=== PATIENT | male | born 1960 | race African-American/Black ===

== ENCOUNTER 2016-11-16 09:41 | Emergency (ER) | payer OTHER ==
[2016-11-16 09:54] VITALS: RESP 18
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
--- NOTE | 2016-11-16 11:05 | XR ---
Left shoulder HISTORY: Left shoulder pain 3 views of the left shoulder correlated to left shoulder dated 09 May 2016 Postop change noted to the humeral head. Some distortion is compatible with history of fracture. Calc ification is present at the level between the humeral head and acromion, hypertrophic change is suspe cted, there may be heterotopic new bone formation. Arthropathy present at the acromioclavicular joint . Left lung apex as visualized is normal. IMPRESSION: Postop changes. Correlate for impingement. Additional findings above.
[2016-11-16 11:26] VITALS: BP 142/79; PULSE 87; TEMP 97.9
== END 2016-11-16 11:26 | disposition home or self-care (01) ==
LOC: EC 09:41
DX: M25.512 Pain in left shoulder (principal); Z98.890 Other specified postprocedural states; F17.210 Nicotine dependence, cigarettes, uncomplicated; Z87.81 Personal history of (healed) traumatic fracture
CPT/HCPCS: 99283

== ENCOUNTER 2016-11-27 12:16 | Emergency (ER) | payer OTHER ==
[2016-11-27 12:21] VITALS: BP 133/77; PULSE 94; RESP 17; TEMP 97.3
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
== END 2016-11-27 13:06 | disposition home or self-care (01) ==
LOC: EC 12:16
DX: M25.512 Pain in left shoulder (principal); F17.210 Nicotine dependence, cigarettes, uncomplicated; Z98.1 Arthrodesis status; Z98.890 Other specified postprocedural states; Z87.828 Personal history of other (healed) physical injury and trauma
CPT/HCPCS: 99283

== ENCOUNTER 2016-12-07 09:29 | Emergency (ER) | payer OTHER ==
[2016-12-07 09:40] VITALS: BP 124/79; PULSE 90; RESP 18; TEMP 97.6
--- NOTE | 2016-12-07 09:51 | ED ---
Upper Extremity HPI - General Chief Complaint: Extremity Injury, Upper Stated Complaint: Shoulder pain Time Seen by Provider: 12/07/16 09:38 Source: patient, RN notes reviewed Mode of arrival: ambulatory Limitations: physical limitation - History of Present Illness Initial Comments: 56-year-old male presents emergency Department chief complaint chronic shoulder pain. Patient has been seen multiple times for this. Patient has received 2 prescriptions pain medication here in emergency department. Patient denies any new injuries. Patient states he missed his appointment last week because he did not have a ride. Patient states he has been appointment on 12/11/2016. Patient states that he is scheduled to going into be evaluated and given pain medication. Patient denies any paresthesias. This is from a previous surgical procedure for fracture to his left shoulder. - Related Data Home Medications Medication Instructions Recorded Confirmed HYDROcodone/APAP 10-325MG [[place] 1 tab PO Q6H PRN 11/27/16 11/27/16 10-325] Previous Rx's Medication Instructions Recorded Hydrocodone/Acetaminophen [Roll 1 tab PO Q6HR PRN #20 tab 11/27/16 5-325] Hydrocodone/Acetaminophen [Roll 1 tab PO Q6HR PRN #15 tab 12/07/16 5-325] Allergies Allergy/AdvReac Type Severity Reaction Status Date / Time No Known Allergies Allergy Verified 12/07/16 09:41 Review of Systems ROS Statement: Those systems with pertinent positive or pertinent negative responses have been documented in the HPI. ROS Other: All systems not noted in ROS Statement are negative. Past Medical History Past Medical History: Asthma, GERD/Reflux, Osteoarthritis (OA) Additional Past Medical History / Comment(s): occ high BP-no rx, fx left shouDER History of Any Multi-Drug Resistant Organisms: None Reported Past Surgical History: Back Surgery, Hernia Repair, Orthopedic Surgery Additional Past Surgical History / Comment(s): 05/22/16 ORIF L shoulder. Other surgical hx: BACK fusion & neck fusion, carpal tunnel-rt Past Anesthesia/Blood Transfusion Reactions: Motion Sickness Past Psychological History: No Psychological Hx Reported Additional Psychological History / Comment(s): Pt resides with family. He is independent. Smoking Status: Current every day smoker Past Alcohol Use History: Rare Additional Past Alcohol Use History / Comment(s): smokes 5-10 cigarettes daily for 20 yrs Past Drug Use History: None Reported Additional Drug Use History / Comment(s): . - Past Family History Sister(s) Family Medical History: Cancer, Deep Vein Thrombosis (DVT) General Exam Limitations: physical limitation General appearance: alert, in no apparent distress Neck exam: Present: normal inspection, full ROM. Absent: tenderness, meningismus, lymphadenopathy Respiratory exam: Present: normal lung sounds bilaterally. Absent: respiratory distress, wheezes, rales, rhonchi, stridor Cardiovascular Exam: Present: regular rate, normal rhythm, normal heart sounds. Absent: systolic murmur, diastolic murmur, rubs, gallop, clicks Extremities exam: Present: other (Left shoulder decreased range of motion there is) Course Vital Signs 12/07/16 09:35 Temperature 97.6 F Pulse Rate 90 Respiratory 18 Rate Blood Pressure 124/79 O2 Sat by Pulse 97 Oximetry Medical Decision Making - Medical Decision Making 56-year-old male presented for pain medication. I did maps patient's which showed her prescription and Zofran here. I had a long discussion with the patient that this is the last prescription that he would receive from the emergency room for his chronic shoulder pain secondary this is his third visit in a row for similar symptoms. He states he has an appointment on 12/11/2016 with the surgeon. I did explain and he agreed that I will give prescription now though he would not receive another one for his chronic shoulder pain that he can see her primary care physician or his surgeon for further pain medication. He does agree to this plan. Disposition Clinical Impression: Left shoulder pain Disposition: HOME SELF-CARE Condition: Stable Instructions: Chronic Pain (ED) Additional Instructions: Please follow-up with your surgeon as directed your scheduled appointment on Wednesday.Please return to the Emergency Department if symptoms worsen or any other concerns. Prescriptions: Hydrocodone/Acetaminophen [[place] 5-325] 1 tab PO Q6HR PRN #15 tab PRN Reason: Pain Referrals: None,Stated [Primary Care Provider] - 1-2 days Cassandra Blount MD [REFERRING] - 1-2 days Time of Disposition: 09:50
== END 2016-12-07 10:04 | disposition home or self-care (01) ==
LOC: EC 09:29
DX: M25.512 Pain in left shoulder (principal); G89.29 Other chronic pain; F17.210 Nicotine dependence, cigarettes, uncomplicated; Z98.890 Other specified postprocedural states
CPT/HCPCS: 99283

== ENCOUNTER 2017-01-20 04:06 | Emergency (ER) | payer OTHER ==
[2017-01-20] MEDS ORDERED: LIDOCAINE URO-JET JELLY 2% 5 ML KIT URETHRAL ONE (05:40)
[2017-01-20] MEDS ORDERED: LEVOFLOXACIN 750MG-D5W PMX 750 MG in DEXTROSE/WATER 1 150ML.BAG IVPB STA (06:04)
[2017-01-20 06:15] LABS: Appearance,Urine Cloudy (Clear); Bacteria,Urine Moderate /hpf; Bilirubin,Urine Negative (Negative); Glucose,Urine (UA) Negative (Negative); Ketones,Urine Trace (Negative); Leukocyte Esterase,Urine Large (Negative); Mucus,Urine Few /hpf; Nitrite,Urine Negative (Negative); Particle Count 22642; Protein,Urine 2+ (Negative); RBC,Urine >182 /hpf (0-5); Specific Gravity,Urine 1.019 (1.001-1.035); Squamous Epithelial Cell,Urine 2 /hpf (0-4); Transitional Epi Cells,Urine <1 /hpf (0-1); UA Billing (MACRO vs. MICRO) MICRO; WBC,Urine >182 /hpf (0-5)
[2017-01-20 06:41] LABS: ALT 41 U/L (21-72); AST 42 U/L (17-59); Alkaline Phosphatase 121 U/L (38-126); Anion Gap 13 mmol/L; Blood Urea Nitrogen 13 mg/dL (9-20); Calcium 9.4 mg/dL (8.4-10.2); Carbon Dioxide 21 mmol/L (22-30); Chloride 104 mmol/L (98-107); Glucose 111 mg/dL (74-99); Non-African American GFR(MDRD) >60 (>60 ml/min/1.73 sqM); Potassium 3.9 mmol/L (3.5-5.1); Sodium 138 mmol/L (137-145); Total Bilirubin 1.5 mg/dL (0.2-1.3); Total Protein 8.2 g/dL (6.3-8.2)
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
[2017-01-20 07:04] LABS: Basophils # (A) 0.1 k/uL (0-0.2); Basophils % (A) 0 %; CH 29.3; CHCM 33.7; Eosinophils # (A) 0.1 k/uL (0-0.7); Eosinophils % (A) 0 %; HCT 46.9 % (39.0-53.0); HDW 2.16; HGB 15.6 gm/dL (13.0-17.5); Luc # (Auto) 0.17; Luc % (Auto) 1; Lymphocytes # (A) 1.1 k/uL (1.0-4.8); Lymphocytes % (A) 5 %; MCHC 33.3 g/dL (31.0-37.0); MCV 87.3 fL (80.0-100.0); Monocytes # (A) 1.4 k/uL (0-1.0); Monocytes % (A) 6 %; Neutrophils # (A) 21.1 k/uL (1.3-7.7); Neutrophils % (A) 88 %; RBC 5.37 m/uL (4.30-5.90); RDW 13.2 % (11.5-15.5); WBC 23.9 k/uL (3.8-10.6); WBC (Perox) 22.77
[2017-01-20] MEDS ORDERED: AZITHROMYCIN 250 MG TAB PO STA (07:13)
[2017-01-20] MEDS ORDERED: HYDROcodone/APAP 5-325MG 1 EACH TAB PO STA (07:29)
--- NOTE | 2017-01-20 08:19 | CT ---
EXAMINATION TYPE: CT abdomen pelvis wo con DATE OF EXAM: 01/20/2017 7:47 AM COMPARISON: NONE INDICATION: Burning, difficult urination DLP: 1108 mGycm, Automated exposure control for dose reduction was used. CONTRAST: 0 mL of Omnipaque 300. Study performed without Oral Contrast TECHNIQUE: Axial images were obtained from above the diaphragm to the pubic rami in the axial plane a t 5 mm thick sections. Reconstructed images are reviewed on the computer in the coronal plane. FINDINGS: Limited CT sections are obtained the lung bases. The lung bases are clear. Couple Bohler within the right middle and right lower lobes within the [id number]. Left lower lobe bulla is also noted. Co ronary artery calcification is noted CT ABDOMEN: Liver: Moderate fatty infiltration is present throughout the liver. No discrete masses or cysts are e vident. Spleen: Normal Pancreas: Normal Adrenal glands: The adrenal glands are normal. Gallbladder: Normal Kidneys: No masses are evident. No hydronephrosis is present. No cysts are present. No renal stone s are identified. Aorta: Vascular calcification is within the aorta. Inferior vena cava: Normal. CT PELVIS: Loops of bowel within the abdomen and pelvis are normal. Lack oral contrast limiting evaluation. Appendix: Normal as visualized. Urinary bladder: Decompressed with limited evaluation. Genitourinary structures: Prostate is prominent. Osseous structures: No suspicious lytic or sclerotic lesions. Postsurgical changes are within the lum bar spine. IMPRESSIONS: 1. Moderate fatty infiltration liver. 2. No suspicious renal abnormality. Study is without contrast. 3. Nondistended urinary bladder limiting its evaluation.
[2017-01-20] MEDS ORDERED: MAGNESIUM CITRATE 296 ML BOTTLE PO ONE (08:31)
[2017-01-20] MEDS ORDERED: SODIUM CHLORIDE 0.9% 1,000 ML IV ONE (09:39)
[2017-01-20 10:53] VITALS: BP 128/75; PULSE 95; RESP 20; TEMP 97.8
== END 2017-01-20 10:51 | disposition home or self-care (01) ==
LOC: EC 04:06
DX: N39.0 Urinary tract infection, site not specified (principal); N41.9 Inflammatory disease of prostate, unspecified; F17.210 Nicotine dependence, cigarettes, uncomplicated; Z91.041 Radiographic dye allergy status
CPT/HCPCS: 99284; 96365; 96366 ×2; 96368; 96361; 51702; 36415; 80053; 83605; 85025; 81001; 87040; 87491; 87591; 87086; 74176; J0696; J1956; 87077; 87186

== ENCOUNTER 2017-01-26 10:08 | Emergency (ER) | payer OTHER ==
[2017-01-26 10:33] VITALS: BP 130/82; PULSE 98; RESP 18; TEMP 97.8
--- NOTE | 2017-01-26 10:47 | ED ---
General Adult HPI - General Chief complaint: Back Pain/Injury Stated complaint: Back Pain Time Seen by Provider: 01/26/17 10:39 Source: patient, RN notes reviewed Mode of arrival: ambulatory Limitations: no limitations - History of Present Illness Initial comments: Patient is a pleasant 57-year-old male presenting to the emergency Department with low back pain. Patient does have chronic low back pain. Patient states his low back pain has been worse recently and he is trying to get into see his surgeon again. Patient did have previous lumbar and cervical spine surgery. Patient states last night he was sitting in his chair and that bottom 2 screws gave out. Patient went back in the chair however did not completely fall to the ground. Patient has had some increase in discomfort again since that time. No leg weakness. Patient has chronic toe numbness however this is unchanged. Known comments or retention of bowel or bladder. - Related Data Previous Rx's Medication Instructions Recorded Levofloxacin [Levaquin] 750 mg PO DAILY #14 tab 01/20/17 Hydrocodone/Acetaminophen [[place] 1 each PO Q4HR PRN #15 tab 01/26/17 5-325] Allergies Allergy/AdvReac Type Severity Reaction Status Date / Time Iodinated Contrast Media - AdvReac Nausea Verified 01/26/17 10:50 Oral and Review of Systems ROS Statement: Those systems with pertinent positive or pertinent negative responses have been documented in the HPI. ROS Other: All systems not noted in ROS Statement are negative. Constitutional: Denies: fever Eyes: Denies: eye pain ENT: Denies: ear pain Respiratory: Denies: cough Cardiovascular: Denies: chest pain Endocrine: Denies: fatigue Gastrointestinal: Denies: abdominal pain Genitourinary: Denies: dysuria Musculoskeletal: Reports: back pain Skin: Denies: rash Neurological: Denies: weakness Past Medical History Past Medical History: Asthma, GERD/Reflux, Osteoarthritis (OA) Additional Past Medical History / Comment(s): occ high BP-no rx, fx left shouDER History of Any Multi-Drug Resistant Organisms: None Reported Past Surgical History: Back Surgery, Hernia Repair, Orthopedic Surgery Additional Past Surgical History / Comment(s): 05/22/16 ORIF L shoulder. Other surgical hx: BACK fusion & neck fusion, carpal tunnel-rt Past Anesthesia/Blood Transfusion Reactions: Motion Sickness Past Psychological History: No Psychological Hx Reported Additional Psychological History / Comment(s): Pt resides with family. He is independent. Smoking Status: Current every day smoker Past Alcohol Use History: Rare Additional Past Alcohol Use History / Comment(s): smokes 5-10 cigarettes daily for 20 yrs Past Drug Use History: None Reported Additional Drug Use History / Comment(s): . - Past Family History Sister(s) Family Medical History: Cancer, Deep Vein Thrombosis (DVT) General Exam Limitations: no limitations General appearance: alert, in no apparent distress Head exam: Present: atraumatic Eye exam: Present: normal appearance, PERRL ENT exam: Present: normal oropharynx Neck exam: Present: normal inspection Respiratory exam: Present: normal lung sounds bilaterally Cardiovascular Exam: Present: regular rate, normal rhythm GI/Abdominal exam: Present: soft. Absent: tenderness, pulsatile mass Extremities exam: Present: normal inspection Neurological exam: Present: alert. Absent: motor sensory deficit Expanded Sensory exam: Lower Extremity Light Touch: Normal Motor strength exam: RLE: 5, LLE: 5 Psychiatric exam: Present: normal affect, normal mood Skin exam: Present: normal color Course Vital Signs 01/26/17 10:28 Temperature 97.8 F Pulse Rate 98 Respiratory 18 Rate Blood Pressure 130/82 O2 Sat by Pulse 96 Oximetry Medical Decision Making - Medical Decision Making Patient requesting discharge and prescription for pain medication. Patient states he takes the 500s. Patient is advised to follow-up with a primary care physician. He states he will. - Radiology Data Radiology results: image reviewed (X-ray shows postsurgical changes, no acute abnormality.) Disposition Clinical Impression: Chronic lower back pain Disposition: HOME SELF-CARE Condition: Stable Instructions: Chronic Back Pain (ED) Additional Instructions: Please follow-up with primary care physician in the next day or 2 for recheck. Return for weakness, loss of control of bowel or bladder, change or worsening symptoms or other concerns. Prescriptions: Hydrocodone/Acetaminophen [[place] 5-325] 1 each PO Q4HR PRN #15 tab PRN Reason: Pain Referrals: None,Stated [Primary Care Provider] - 1-2 days Sena Green MD [STAFF PHYSICIAN] - 1-2 days Julio Mroris MD [REFERRING] - 1-2 days Mara Dumont DO [REFERRING] - 1-2 days Time of Disposition: 12:25
--- NOTE | 2017-01-26 11:46 | XR ---
Lumbar spine HISTORY: Pain. 3 views of the lumbar spine Correlation to prior exam 14 May 2014 Postop changes again noted. Degenerative disc changes are again seen. Lumbar vertebral bodies show st able height, alignment, bone mineralization is reduced. There is loss of disc height and intervertebr al levels. Resorption at the anterior margin of L3 is again seen. There is associated sclerosis. IMPRESSION: Stable findings. Degenerative disc disease. No acute abnormality.
== END 2017-01-26 12:36 | disposition home or self-care (01) ==
LOC: EC 10:08
DX: M54.5 Low back pain (principal); G89.29 Other chronic pain; F17.210 Nicotine dependence, cigarettes, uncomplicated; Z91.041 Radiographic dye allergy status
CPT/HCPCS: 72100; 99283

== ENCOUNTER 2017-03-16 09:27 | Emergency (ER) | payer OTHER ==
--- NOTE | 2017-03-16 10:47 | ED ---
Back Pain HPI - General Chief Complaint: Back Pain/Injury Stated Complaint: Shoulder and Back Pain Time Seen by Provider: 03/16/17 10:06 Source: patient Limitations: no limitations - History of Present Illness Initial Comments: Rene Pimentel is a 57-year-old -[place]ag[place] male with past medical history of chronic back pain secondary to injury. He presents to the emergency department this morning for evaluation of continued back pain. Patient reports that his chronic back pain as previously been controlled with by mouth [place], she has been on oxycodone and Suboxone in the past which he reports did not treat his pain adequately. He reports he came to our emergency Department approximately a month ago for evaluation of his back pain, he was referred to primary care neurologists however none of the specialists he was referred to accept his insurance. The patient states that he has called his insurance and they have been unable to provide him with a list of primary care providers who will accept his insurance therefore is been unable to obtain follow-up. Patient reports that for the past 15 days he was been without any by mouth narcotic pain medications. Patient reports that he was trying to manage his pain, he again called his insurance on Wednesday to see if he could locate a physician he can follow up with. However [facility] was not helpful to him so today he came to the emergency department because he says he cannot tolerate this constant pain and he needs referral to new primary care physician as well as neurologists. Patient describes his back pain as being primarily in his lower back with radiation down his right leg. The back pain is unchanged over the course of greater than one year. Due to chronic back pain he walks with a cane, this is unchanged recently. He denies any change in bowel or bladder habits, weakness in the legs, change in gait. Patient denies any other symptoms including fevers , chills, nausea, vomiting, chest pain or shortness of breath. Patient reports he came to the ER for refill of his [place] as well as a referral to primary care , neurology or pain management. MD Complaint: back pain -: year(s) Similar Symptoms Previously: Yes Radiation: right leg Severity: moderate Quality: burning Consistency: intermittent - Related Data Previous Rx's Medication Instructions Recorded HYDROcodone/APAP 10-325MG [[place] 1 tab PO Q8H PRN #15 tab 03/16/17 10-325] Allergies Allergy/AdvReac Type Severity Reaction Status Date / Time Iodinated Contrast Media - AdvReac Nausea Verified 03/16/17 10:27 Oral and Review of Systems ROS Statement: Those systems with pertinent positive or pertinent negative responses have been documented in the HPI. ROS Other: All systems not noted in ROS Statement are negative. Constitutional: Denies: fever, chills Respiratory: Denies: dyspnea Cardiovascular: Denies: chest pain, palpitations Endocrine: Denies: fatigue Gastrointestinal: Denies: abdominal pain, nausea, vomiting, diarrhea, constipation Genitourinary: Denies: dysuria Musculoskeletal: Reports: back pain. Denies: arthralgia, myalgia Skin: Denies: rash, lesions Neurological: Reports: abnormal gait. Denies: headache, weakness, numbness, paresthesias Psychiatric: Denies: anxiety Hematological/Lymphatic: Denies: easy bleeding, easy bruising Past Medical History Past Medical History: Asthma, GERD/Reflux, Osteoarthritis (OA) Additional Past Medical History / Comment(s): occ high BP-no rx, fx left shouDER History of Any Multi-Drug Resistant Organisms: None Reported Past Surgical History: Back Surgery, Hernia Repair, Orthopedic Surgery Additional Past Surgical History / Comment(s): 05/22/16 ORIF L shoulder. Other surgical hx: BACK fusion & neck fusion, carpal tunnel-rt Past Anesthesia/Blood Transfusion Reactions: Motion Sickness Past Psychological History: No Psychological Hx Reported Smoking Status: Current every day smoker Past Alcohol Use History: Rare Past Drug Use History: None Reported - Past Family History Sister(s) Family Medical History: Cancer, Deep Vein Thrombosis (DVT) General Exam Limitations: no limitations General appearance: alert, in no apparent distress Head exam: Present: atraumatic, normocephalic, normal inspection Eye exam: Present: PERRL. Absent: scleral icterus ENT exam: Present: mucous membranes moist Neck exam: Present: full ROM Respiratory exam: Present: normal lung sounds bilaterally. Absent: respiratory distress, wheezes, rhonchi, stridor, chest wall tenderness Cardiovascular Exam: Present: regular rate, normal rhythm. Absent: bradycardia , tachycardia, irregular rhythm GI/Abdominal exam: Present: soft. Absent: distended, tenderness, guarding, rebound Rectal exam: Present: deferred Extremities exam: Absent: pedal edema Back exam: Present: normal inspection, paraspinal tenderness, other (Well- healed midline surgical incision over her lumbar spine). Absent: CVA tenderness (R), CVA tenderness (L), muscle spasm, vertebral tenderness Neurological exam: Present: alert, oriented X3, abnormal gait (Antalgic gait, walks with cane) Psychiatric exam: Present: normal affect, normal mood Skin exam: Present: warm, dry Course Vital Signs 03/16/17 09:34 Temperature 97.6 F Pulse Rate 89 Respiratory 20 Rate Blood Pressure 138/87 O2 Sat by Pulse 96 Oximetry Medical Decision Making - Medical Decision Making Patient was seen and examined, history was obtained from the patient and review of previous medical records Patient with a history of chronic back pain managed with by mouth narcotics, currently out of all medications and unable follow up with primary care, neurology or pain management Patient with no new symptoms, no change in his back pain, no development of neurologic symptoms, no urinary retention or incontinence, no constipation or bowel incontinence, no numbness or tingling in the lower extremities, no weakness We'll plan to discharge patient with prescription for 1 week of [place] and referral to multiple specialists he can call for follow-up Advised patient to attempt to call his insurance agency again to discuss with them any referral S4 primary care physician's associated with them. Patient expressed understanding this plan. All questions pertaining care were answered patient was discharged home. Disposition Clinical Impression: Mechanical back pain Disposition: HOME SELF-CARE Instructions: Chronic Back Pain (ED), Lower Back Exercises (ED) Referrals: None,Stated [Primary Care Provider] - 1-2 days Ana María Guy MD [STAFF PHYSICIAN] - 1-2 days Samuel Durant MD [Medical Doctor] - 1-2 days Jen Holland MD [STAFF PHYSICIAN] - 1-2 days Sedrick Anthony MD [STAFF PHYSICIAN] - 1-2 days Farrukh Holt DO [STAFF PHYSICIAN] - 1-2 days Eric Valverde MD [STAFF PHYSICIAN] - 1-2 days Barrett Flores DO [STAFF PHYSICIAN] - 1-2 days Titus Steen MD [STAFF PHYSICIAN] - 1-2 days Jude Onofre MD [REFERRING] - 1-2 days Severino Saeed MD [STAFF PHYSICIAN] - 1-2 days Farrukh Gayle MD [STAFF PHYSICIAN] - 1-2 days Teresita Dee MD [STAFF PHYSICIAN] - 1-2 days Vinita Alejandro MD [STAFF PHYSICIAN] - 1-2 days Kye Middleton MD [STAFF PHYSICIAN] - 1-2 days Donovan Hahn MD [REFERRING] - 1-2 days Sherly Dee MD [STAFF PHYSICIAN] - 1-2 days Antoni Infante MD [STAFF PHYSICIAN] - 1-2 days Time of Disposition: 10:25
[2017-03-16 10:54] VITALS: BP 129/91; PULSE 78; RESP 18; TEMP 98.5
== END 2017-03-16 10:54 | disposition home or self-care (01) ==
LOC: EC 09:27
DX: M54.5 Low back pain (principal); G89.29 Other chronic pain; M79.604 Pain in right leg; R26.89 Other abnormalities of gait and mobility; F17.200 Nicotine dependence, unspecified, uncomplicated; Z91.041 Radiographic dye allergy status; Z98.1 Arthrodesis status
CPT/HCPCS: 99283

== ENCOUNTER 2017-03-23 11:06 | Emergency (ER) | payer OTHER ==
[2017-03-23 11:23] VITALS: BP 130/85; PULSE 87; RESP 20; TEMP 97.9
--- NOTE | 2017-03-23 11:54 | ED ---
General Adult HPI - General Chief complaint: Back Pain/Injury Stated complaint: Back Pain Time Seen by Provider: 03/23/17 11:38 Source: patient, RN notes reviewed Mode of arrival: ambulatory Limitations: no limitations - History of Present Illness Initial comments: Patient 57-year-old male with significant past mental history for chronic back pain, who presents emergency room today with a chief complaint of needing medication refill. He does admit that he was seen here recently. He does admit that he is currently in between doctors. He states he does have information to follow-up with Dr. Garcia. States he's waiting for call back and is hoping to get in there later this week. He does admit to a history of chronic back pain. Denies any injury or trauma. States that he's had increased pain over the last week was seen here recently given this referral and some pain medication and is now out of. He denies any bowel or bladder incontinence or retention. Denies any saddle anesthesia. Denies any new symptoms. Patient denies any recent fever, chills, shortness of breath, chest pain, abdominal pain, nausea or vomiting, dysuria or hematuria, constipation or diarrhea, headaches or visual changes, or any other complaints. - Related Data Home Medications Medication Instructions Recorded Confirmed HYDROcodone/APAP 10-325MG [[place] 1 tab PO BID PRN 03/23/17 03/23/17 10-325] Previous Rx's Medication Instructions Recorded Hydrocodone/Acetaminophen [[place] 1 each PO Q6HR PRN #15 tab 03/23/17 5-325] Allergies Allergy/AdvReac Type Severity Reaction Status Date / Time Iodinated Contrast- Oral and AdvReac Nausea Verified 03/23/17 11:23 IV Dye [Iodinated Contrast Media - Oral and] Review of Systems ROS Statement: Those systems with pertinent positive or pertinent negative responses have been documented in the HPI. ROS Other: All systems not noted in ROS Statement are negative. Past Medical History Past Medical History: Asthma, GERD/Reflux, Osteoarthritis (OA) Additional Past Medical History / Comment(s): occ high BP-no rx, fx left shouDER History of Any Multi-Drug Resistant Organisms: None Reported Past Surgical History: Back Surgery, Hernia Repair, Orthopedic Surgery Additional Past Surgical History / Comment(s): 05/22/16 ORIF L shoulder. Other surgical hx: BACK fusion & neck fusion, carpal tunnel-rt Past Anesthesia/Blood Transfusion Reactions: Motion Sickness Past Psychological History: No Psychological Hx Reported Smoking Status: Current every day smoker Past Alcohol Use History: Rare Past Drug Use History: None Reported - Past Family History Sister(s) Family Medical History: Cancer, Deep Vein Thrombosis (DVT) General Exam - General Exam Comments Initial Comments: General: The patient is awake and alert, in no distress, and does not appear acutely ill. Eye: Pupils are equal, round and reactive to light, extra-ocular movements are intact. No nystagmus. There is normal conjunctiva bilaterally. No signs of icterus. Ears, nose, mouth and throat: There are moist mucous membranes and no oral lesions. Neck: The neck is supple, there is no tenderness or JVD. Cardiovascular: There is a regular rate and rhythm. No murmur, rub or gallop is appreciated. Respiratory: Lungs are clear to auscultation, respirations are non-labored, breath sounds are equal. No wheezes, stridor, rales, or rhonchi. Gastrointestinal: Musculoskeletal: Normal ROM. Surgical incision lower lumbar. Mild tenderness on exam this area. Strength 5/5. Sensation intact. Pulses equal bilaterally 2+ . Neurological: A&O x 3. CN II-XII intact, There are no obvious motor or sensory deficits. Coordination appears grossly intact. Speech is normal. Skin: Skin is warm and dry and no rashes or lesions are noted. Psychiatric: Cooperative, appropriate mood & affect, normal judgment. Limitations: no limitations Course Vital Signs 03/23/17 11:22 Temperature 97.9 F Pulse Rate 87 Respiratory 20 Rate Blood Pressure 130/85 O2 Sat by Pulse 97 Oximetry Medical Decision Making - Medical Decision Making On conversation have the patient about following up with his specialist or family doctor for further narcotic medications. A MAPS report was obtained. Patient given a short prescription. Advised to follow-up. Disposition Clinical Impression: Chronic back pain, Medication refill Disposition: HOME SELF-CARE Condition: Good Instructions: Chronic Back Pain (ED) Additional Instructions: Please use medication as discussed. Please follow-up with specialist/family doctor in the next 2 days. Please return to emergency room if the symptoms increase or worsen or for any other concerns. Prescriptions: Hydrocodone/Acetaminophen [[place] 5-325] 1 each PO Q6HR PRN #15 tab PRN Reason: Pain Referrals: None,Stated [Primary Care Provider] - 1-2 days Vinita Alejandro MD [STAFF PHYSICIAN] - 1-2 days Time of Disposition: 11:53
== END 2017-03-23 12:00 | disposition home or self-care (01) ==
LOC: EC 11:06
DX: G89.29 Other chronic pain (principal); M54.9 Dorsalgia, unspecified; Z76.0 Encounter for issue of repeat prescription; F17.200 Nicotine dependence, unspecified, uncomplicated; Z91.041 Radiographic dye allergy status
CPT/HCPCS: 99283

== ENCOUNTER 2017-04-16 10:38 | Emergency (ER) | payer OTHER ==
[2017-04-16 10:54] VITALS: BP 135/72; PULSE 85; RESP 17; TEMP 98.4
--- NOTE | 2017-04-16 11:33 | ED ---
General Adult HPI - General Chief complaint: Back Pain/Injury Stated complaint: Back Pain Time Seen by Provider: 04/16/17 11:12 Source: patient Mode of arrival: ambulatory Limitations: physical limitation - History of Present Illness Initial comments: Patient is a 57-year-old male past medical history of chronic back pain who presents to ED via private vehicle for evaluation of low back pain. Patient states that earlier in the week he noted there to be bunkbeds in the furniture in his home, this prompted him to remove all of the furniture from his home. Patient states for the last 3 nights he has been sleeping on 2 blankets on the floor. Patient states that he thinks a combination of moving furniture and sleeping on the floor rather than sleeping in a recliner like he had done previously as resulted in exacerbation of his low back pain. Patient describes the pain as tightness in the muscles of his lower back. He denies any new weakness in the lower extremities, though he does walk with a cane this is unchanged recently. Patient denies any change in bowel or bladder habits specifically any urinary incontinence or urinary retention. He denies any constipation or diarrhea. Patient states that aside from the tightness in his back he's been in his usual state of health. Patient states he has an appointment with neurosurgery for May 07 to reevaluated possibility of revision of his lumbar surgery. Patient states that he does not have a PCP in this area, and he doesn't follow with pain management. - Related Data Home Medications Medication Instructions Recorded Confirmed HYDROcodone/APAP 10-325MG [[place] 1 tab PO BID PRN 03/23/17 04/16/17 10-325] Previous Rx's Medication Instructions Recorded HYDROcodone/APAP 5-325MG [[place] 1 tab PO Q8HR PRN #12 tab 04/16/17 5-325] Allergies Allergy/AdvReac Type Severity Reaction Status Date / Time Iodinated Contrast- Oral and AdvReac Nausea Verified 04/16/17 11:08 IV Dye [Iodinated Contrast Media - Oral and] Review of Systems ROS Statement: Those systems with pertinent positive or pertinent negative responses have been documented in the HPI. ROS Other: All systems not noted in ROS Statement are negative. Constitutional: Denies: fever, chills Eyes: Denies: eye pain Respiratory: Denies: cough, dyspnea Cardiovascular: Denies: chest pain, palpitations Endocrine: Denies: fatigue Gastrointestinal: Denies: abdominal pain, nausea, vomiting, constipation Genitourinary: Denies: urgency, dysuria, frequency Musculoskeletal: Reports: back pain Skin: Denies: rash, lesions Neurological: Denies: headache, weakness Psychiatric: Denies: anxiety, depression Hematological/Lymphatic: Denies: easy bleeding, easy bruising Past Medical History Past Medical History: Asthma, GERD/Reflux, Osteoarthritis (OA) Additional Past Medical History / Comment(s): occ high BP-no rx, fx left shouDER History of Any Multi-Drug Resistant Organisms: None Reported Past Surgical History: Back Surgery, Hernia Repair, Orthopedic Surgery Additional Past Surgical History / Comment(s): 05/22/16 ORIF L shoulder. Other surgical hx: BACK fusion & neck fusion, carpal tunnel-rt Past Anesthesia/Blood Transfusion Reactions: Motion Sickness Past Psychological History: No Psychological Hx Reported Smoking Status: Current every day smoker Past Alcohol Use History: Rare Past Drug Use History: None Reported - Past Family History Sister(s) Family Medical History: Cancer, Deep Vein Thrombosis (DVT) General Exam Limitations: physical limitation General appearance: alert, in no apparent distress Head exam: Present: atraumatic, normocephalic, normal inspection Eye exam: Present: normal appearance, PERRL, EOMI. Absent: scleral icterus, conjunctival injection, periorbital swelling ENT exam: Present: normal exam, mucous membranes moist Neck exam: Present: normal inspection. Absent: tenderness, meningismus, lymphadenopathy Respiratory exam: Present: normal lung sounds bilaterally. Absent: respiratory distress, wheezes, rales, rhonchi, stridor Cardiovascular Exam: Present: regular rate, normal rhythm, normal heart sounds. Absent: systolic murmur, diastolic murmur, rubs, gallop, clicks GI/Abdominal exam: Present: soft, normal bowel sounds. Absent: distended, tenderness, guarding, rebound, rigid Rectal exam: Present: deferred Extremities exam: Present: normal inspection, full ROM, normal capillary refill. Absent: tenderness, pedal edema, joint swelling, calf tenderness Back exam: Present: muscle spasm, paraspinal tenderness, other (Well-healed midline surgical scar over the lumbar region). Absent: CVA tenderness (R), CVA tenderness (L), vertebral tenderness, rash noted Neurological exam: Present: alert, oriented X3, CN II-XII intact Psychiatric exam: Present: normal affect, normal mood Skin exam: Present: warm, dry, intact, normal color. Absent: rash Course Vital Signs 04/16/17 10:50 Temperature 98.4 F Pulse Rate 85 Respiratory 17 Rate Blood Pressure 135/72 O2 Sat by Pulse 94 L Oximetry Medical Decision Making - Medical Decision Making Patient was seen and evaluated, history was obtained from the patient and his medical record Patient has chronic back pain and is narcotic dependent, does not have primary care and follows at our emergency department frequently for refills of his pain Patient reports he has a follow-up appointment with neurosurgery and pain management in [place] on May 07 MAPS report consistent with patient's history of following with our ER frequently At this time I believe the patient is dependent on narcotic pain medications, I did discuss with him that he would benefit from following pain management seeking alternative care. However don't feel that withholding narcotic pain medications at this time would benefit the patient as he will likely have withdraw and seek care at alternative facilities until he receives his pain medications. I advised the patient I will give him a short course and to take only one to 2 pills daily until he can see his neurosurgeon for follow-up on his chronic back pain. Patient was given multiple follow-up referrals during his previous visits to ED and is making efforts to establish PCP, pain mangement and neurology/ neurosurgery follow up. Disposition Clinical Impression: Chronic back pain, Muscle spasm Disposition: HOME SELF-CARE Condition: Good Instructions: Chronic Back Pain (ED) Prescriptions: HYDROcodone/APAP 5-325MG [[place] 5-325] 1 tab PO Q8HR PRN #12 tab PRN Reason: Pain Referrals: None,Stated [Primary Care Provider] - 1-2 days Time of Disposition: 11:36
== END 2017-04-16 11:42 | disposition home or self-care (01) ==
LOC: EC 10:38
DX: M62.830 Muscle spasm of back (principal); G89.29 Other chronic pain; F17.200 Nicotine dependence, unspecified, uncomplicated; Z91.041 Radiographic dye allergy status; Z98.1 Arthrodesis status
CPT/HCPCS: 99283

== ENCOUNTER 2017-08-23 14:41 | Emergency (ER) | payer OTHER ==
[2017-08-23 14:44] VITALS: BP 152/93; PULSE 92; RESP 18; TEMP 97.8
--- NOTE | 2017-08-23 15:37 | ED ---
General Adult HPI - General Chief complaint: Back Pain/Injury Stated complaint: Back pain Time Seen by Provider: 08/23/17 15:22 Source: patient, RN notes reviewed Mode of arrival: ambulatory Limitations: no limitations - History of Present Illness Initial comments: Patient 57-year-old male significant past medical history for chronic low back pain, who presents emergency room today with a chief complaint of a new injury to the lower back that occurred earlier today. He states that he slipped on some ice. He states he did not fall but was able to catch himself but does have increased pain to the lower back. States he does not have pain medication at home. He states he was taking [place] tenderness. States he is supposed to see new neurologist and has an appointment next month. Admits pain radiating to the right hip but states this is not new. Patient denies any other complaints or symptoms. Patient denies any recent fever, chills, shortness of breath, chest pain, back pain, abdominal pain, nausea or vomiting, numbness or tingling, dysuria or hematuria, constipation or diarrhea, headaches or visual changes, or any other complaints. - Related Data Home Medications Medication Instructions Recorded Confirmed HYDROcodone/APAP 10-325MG [[place] 1 tab PO BID PRN 03/23/17 04/16/17 10-325] Previous Rx's Medication Instructions Recorded HYDROcodone/APAP 5-325MG [[place] 1 tab PO Q8HR PRN #12 tab 04/16/17 5-325] Hydrocodone/Acetaminophen [[place] 1 each PO Q6HR PRN #15 tab 08/23/17 5-325] Allergies Allergy/AdvReac Type Severity Reaction Status Date / Time Iodinated Contrast- Oral and AdvReac Nausea Verified 08/23/17 14:44 IV Dye [Iodinated Contrast Media - Oral and] Review of Systems ROS Statement: Those systems with pertinent positive or pertinent negative responses have been documented in the HPI. ROS Other: All systems not noted in ROS Statement are negative. Past Medical History Past Medical History: Asthma, GERD/Reflux, Osteoarthritis (OA) Additional Past Medical History / Comment(s): occ high BP-no rx, fx left shouDER History of Any Multi-Drug Resistant Organisms: None Reported Past Surgical History: Back Surgery, Hernia Repair, Orthopedic Surgery Additional Past Surgical History / Comment(s): 05/22/16 ORIF L shoulder. Other surgical hx: BACK fusion & neck fusion, carpal tunnel-rt Past Anesthesia/Blood Transfusion Reactions: Motion Sickness Past Psychological History: No Psychological Hx Reported Smoking Status: Current every day smoker Past Alcohol Use History: Rare Past Drug Use History: None Reported - Past Family History Sister(s) Family Medical History: Cancer, Deep Vein Thrombosis (DVT) General Exam - General Exam Comments Initial Comments: General: The patient is awake and alert, in no distress, and does not appear acutely ill. Eye: Pupils are equal, round and reactive to light, extra-ocular movements are intact. No nystagmus. There is normal conjunctiva bilaterally. No signs of icterus. Ears, nose, mouth and throat: There are moist mucous membranes and no oral lesions. Neck: The neck is supple, there is no tenderness or JVD. Cardiovascular: There is a regular rate and rhythm. No murmur, rub or gallop is appreciated. Respiratory: Lungs are clear to auscultation, respirations are non-labored, breath sounds are equal. No wheezes, stridor, rales, or rhonchi. Musculoskeletal: Normal ROM. No bony tenderness over the lumbar or thoracic spine. Strength 5/5. Sensation intact. Pulses equal bilaterally 2+. Neurological: A&O x 3. CN II-XII intact, There are no obvious motor or sensory deficits. Coordination appears grossly intact. Speech is normal. Skin: Skin is warm and dry and no rashes or lesions are noted. Psychiatric: Cooperative, appropriate mood & affect, normal judgment. Limitations: no limitations Course Vital Signs 08/23/17 14:42 Temperature 97.8 F Pulse Rate 92 Respiratory 18 Rate Blood Pressure 152/93 O2 Sat by Pulse 97 Oximetry Medical Decision Making - Medical Decision Making Patient will be given short prescription of pain medication as he states this is chronic back pain. Currently out of his pain medication. In between pain management at this time. Follow-up with his family doctor pain specialist. Patient advised return if any symptoms increase or worsen. Disposition Clinical Impression: Chronic low back pain Disposition: HOME SELF-CARE Condition: Good Instructions: Chronic Back Pain (ED) Additional Instructions: Please use medication as discussed. Please follow-up with family doctor in the next 2 days of symptoms have not improved. Please return to emergency room if the symptoms increase or worsen or for any other concerns. Prescriptions: Hydrocodone/Acetaminophen [[place] 5-325] 1 each PO Q6HR PRN #15 tab PRN Reason: Pain Referrals: None,Stated [Primary Care Provider] - 1-2 days Time of Disposition: 15:35
== END 2017-08-23 16:04 | disposition home or self-care (01) ==
LOC: EC 14:41
DX: M54.5 Low back pain (principal); G89.29 Other chronic pain; Z98.890 Other specified postprocedural states; F17.200 Nicotine dependence, unspecified, uncomplicated; Z91.041 Radiographic dye allergy status; W00.0XXA Fall on same level due to ice and snow, initial encounter
CPT/HCPCS: 99283

== ENCOUNTER 2018-12-28 13:17 | Emergency (ER) | payer OTHER ==
[2018-12-28] MEDS ORDERED: ZIPRASIDONE 20 MG VIAL IM STA (13:25)
[2018-12-28] MEDS ORDERED: LORazepam 2 MG/ML INJ IV STA (13:25)
[2018-12-28 13:26] VITALS: BP 107/68; PULSE 92; RESP 18; TEMP 97.7
[2018-12-28] MEDS ORDERED: HYDROcodone/APAP 5-325MG 1 EACH TAB PO STA (14:07)
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
== END 2018-12-28 14:20 | disposition left against medical advice (07) ==
LOC: EC 13:17
DX: M54.5 Low back pain (principal); F17.200 Nicotine dependence, unspecified, uncomplicated; Z76.5 Malingerer [conscious simulation]; Z53.29 Procedure and treatment not carried out because of patient's decision for other reasons; Z91.041 Radiographic dye allergy status
CPT/HCPCS: 99283

== ENCOUNTER 2019-06-13 23:18 | Emergency (ER) | payer OTHER ==
[2019-06-13 23:25] VITALS: TEMP 98
[2019-06-13] MEDS ORDERED: MORPHINE SULFATE 4 MG/ML SYRINGE IV STA (23:47)
[2019-06-13] MEDS ORDERED: SODIUM CHLORIDE 0.9% 1,000 ML IV STA (23:47)
[2019-06-14 00:42] LABS: Basophils # (A) 0.1 k/uL (0-0.2); Basophils % (A) 1 %; Eosinophils # (A) 0.3 k/uL (0-0.7); Eosinophils % (A) 3 %; HCT 39.7 % (39.0-53.0); HGB 13.3 gm/dL (13.0-17.5); Lymphocytes % (A) 37 %; MCH 31.1 pg (25.0-35.0); MCHC 33.5 g/dL (31.0-37.0); Mean Platelet Volume 6.7; Monocytes # (A) 0.7 k/uL (0-1.0); Monocytes % (A) 8 %; Neutrophils # (A) 3.8 k/uL (1.3-7.7); Neutrophils % (A) 48 %; Platelet Count 152 k/uL (150-450); RBC 4.27 m/uL (4.30-5.90); RDW 13.5 % (11.5-15.5)
[2019-06-14 00:47] LABS: INR 1.2 (<1.2); Partial Thromboplastin Time 27.4 sec (22.0-30.0); Prothrombin Time 12.2 sec (9.0-12.0)
--- NOTE | 2019-06-14 00:48 | XR ---
EXAMINATION TYPE: XR chest 2V DATE OF EXAM: 06/14/2019 COMPARISON: 07/25/2013 HISTORY: Leg swelling TECHNIQUE: Frontal and lateral views of the chest are obtained. FINDINGS: Heart and mediastinum are normal. Lungs are clear of infiltrate. There is no heart failure . There is cervical spine fusion surgery. There is left shoulder surgery. Thoracic spine is intact. IMPRESSION: No cardiopulmonary disease. No change.
[2019-06-14 00:49] LABS: African American GFR (CKD) >90 (>60 ml/min/1.73 sqM); Albumin 3.3 g/dL (3.5-5.0); Anion Gap 6 mmol/L; Calcium 8.8 mg/dL (8.4-10.2); Carbon Dioxide 26 mmol/L (22-30); Chloride 106 mmol/L (98-107); Glucose 90 mg/dL (74-99); Magnesium 1.9 mg/dL (1.6-2.3); Sodium 138 mmol/L (137-145); Total Bilirubin 0.8 mg/dL (0.2-1.3); Total Protein 6.7 g/dL (6.3-8.2)
[2019-06-14 00:52] LABS: Appearance,Urine Clear (Clear); Bilirubin,Urine Negative (Negative); Blood,Urine Small (Negative); Color,Urine Yellow; Glucose,Urine (UA) Negative (Negative); Ketones,Urine Negative (Negative); Leukocyte Esterase,Urine Negative (Negative); Mucus,Urine Rare /hpf; Nitrite,Urine Negative (Negative); Protein,Urine Negative (Negative); RBC,Urine 3 /hpf (0-5); Specific Gravity,Urine 1.021 (1.001-1.035); WBC,Urine 1 /hpf (0-5)
[2019-06-14 00:59] LABS: AST 123 U/L (17-59); Blood Urea Nitrogen 13 mg/dL (9-20); Potassium 4.6 mmol/L (3.5-5.1)
[2019-06-14 01:00] LABS: ALT 76 U/L (21-72); Alkaline Phosphatase 258 U/L (38-126)
--- NOTE | 2019-06-14 01:18 | ED ---
Extremity Problem HPI - General Chief complaint: Extremity Problem,Nontraumatic Stated complaint: Bilateral Foot Swelling Time Seen by Provider: 06/13/19 23:33 Source: patient, RN notes reviewed, old records reviewed Mode of arrival: wheelchair Limitations: no limitations - History of Present Illness Initial comments: Patient is a 59-year-old -Spanish male presents emergency department today with 3 days of worsening bilateral lower extremity swelling for the past 3 days. He reports that his right foot is red and swollen and ankle is more pa inful than the left. Patient denies any falls or trauma. Patient states he's ever had any peripheral swelling like this before. He typically ambulates using a electric wheelchair is Patient does have history of chronic back pain. He is a smoker. He denies any specific chest pain at this time or shortness of breath. Patient states that he has had no other significant complaints. - Related Data Previous Rx's Medication Instructions Recorded Furosemide [Lasix] 40 mg PO DAILY #5 tablet 06/14/19 Ibuprofen 600 mg PO TID #20 tablet 06/14/19 Allergies Allergy/AdvReac Type Severity Reaction Status Date / Time Iodinated Contrast Media AdvReac Nausea Verified 06/13/19 23:25 [Iodinated Contrast Media - Oral and] Review of Systems ROS Statement: Those systems with pertinent positive or pertinent negative responses have been documented in the HPI. ROS Other: All systems not noted in ROS Statement are negative. Past Medical History Past Medical History: Asthma, GERD/Reflux, Osteoarthritis (OA) Additional Past Medical History / Comment(s): occ high BP-no rx, fx left shouDER History of Any Multi-Drug Resistant Organisms: None Reported Past Surgical History: Back Surgery, Hernia Repair, Orthopedic Surgery Additional Past Surgical History / Comment(s): 05/22/16 ORIF L shoulder. Other s urgical hx: BACK fusion & neck fusion, carpal tunnel-rt Past Anesthesia/Blood Transfusion Reactions: Motion Sickness Past Psychological History: No Psychological Hx Reported Smoking Status: Current every day smoker Past Alcohol Use History: Occasional Past Drug Use History: None Reported - Past Family History Sister(s) Family Medical History: Cancer, Deep Vein Thrombosis (DVT) General Exam - General Exam Comments Initial Comments: Pleasant 5-year-old male. Alert and oriented 3. Patient appears in no significant distress. Limitations: no limitations General appearance: alert Head exam: Present: atraumatic, normocephalic, normal inspection Eye exam: Present: normal appearance, PERRL, EOMI. Absent: scleral icterus, conjunctival injection, periorbital swelling ENT exam: Present: normal exam, mucous membranes moist Neck exam: Present: normal inspection. Absent: tenderness, meningismus, l ymphadenopathy Respiratory exam: Present: normal lung sounds bilaterally Cardiovascular Exam: Present: regular rate, normal rhythm, normal heart sounds. Absent: systolic murmur, diastolic murmur, rubs, gallop, clicks GI/Abdominal exam: Present: soft, normal bowel sounds. Absent: distended, tenderness, guarding, rebound, rigid Extremities exam: Present: normal inspection, pedal edema (2+ bilateral pedal edema. No erythema, and significant tenderness over the right foot ankle and lower calf.) Back exam: Present: normal inspection Neurological exam: Present: alert, oriented X3, CN II-XII intact Psychiatric exam: Present: normal affect Course Vital Signs 06/13/19 06/14/19 06/14/19 23:21 01:00 01:30 Temperature 98.0 F Pulse Rate 91 91 84 Respiratory 20 20 18 Rate Blood Pressure 109/64 129/96 143/102 O2 Sat by Pulse 98 98 97 Oximetry 06/14/19 02:19 Temperature Pulse Rate 89 Respiratory 20 Rate Blood Pressure 124/83 O2 Sat by Pulse 100 Oximetry Medical Decision Making - Medical Decision Making is a 5-year-old male presents with bilateral x-ray swelling. Symptoms started 3 days. Does report is a chronic drinker. At this time patient's labwork was reviewed to be unremarkable. Mildly elevated liver enzymes likely related to alcohol use. At this time patient's ultrasound were completely negative for DVT. He does have some erythema and worsening pain over the right lower extremity. He does question calculus he has a high salt diet. I discussed that I felt I also could be related to the swelling. Discussed that we'll put the Patient a short course of Lasix and anti-inflammatory medications. Discussed if it worsens to return. Discussed the importance of following up with the primary care doctor. All questions were answered and return parameters were discussed. - Lab Data Result diagrams: 06/14/19 00:24 06/14/19 00:24 Lab Results 10/09/19 10/09/19 10/09/19 Range/Units 00:24 00:24 00:24 WBC 8.0 (3.8-10.6) k/uL RBC 4.27 L (4.30-5.90) m/uL Hgb 13.3 (13.0-17.5) gm/dL Hct 39.7 (39.0-53.0) % MCV 93.0 (80.0-100.0) fL MCH 31.1 (25.0-35.0) pg MCHC 33.5 (31.0-37.0) g/dL RDW 13.5 (11.5-15.5) % Plt Count 152 (150-450) k/uL Neutrophils % 48 % Lymphocytes % 37 % Monocytes % 8 % Eosinophils % 3 % Basophils % 1 % Neutrophils # 3.8 (1.3-7.7) k/uL Lymphocytes # 3.0 (1.0-4.8) k/uL Monocytes # 0.7 (0-1.0) k/uL Eosinophils # 0.3 (0-0.7) k/uL Basophils # 0.1 (0-0.2) k/uL PT 12.2 H (9.0-12.0) sec INR 1.2 H (<1.2) APTT 27.4 (22.0-30.0) sec Sodium 138 (137-145) mmol/L Potassium 4.6 (3.5-5.1) mmol/L Chloride 106 (98-107) mmol/L Carbon Dioxide 26 (22-30) mmol/L Anion Gap 6 mmol/L BUN 13 (9-20) mg/dL Creatinine 0.80 (0.66-1.25) mg/dL Est GFR (CKD-EPI)AfAm >90 (>60 ml/min/1.73 sqM) Est GFR (CKD-EPI)NonAf >90 (>60 ml/min/1.73 sqM) Glucose 90 (74-99) mg/dL Calcium 8.8 (8.4-10.2) mg/dL Magnesium 1.9 (1.6-2.3) mg/dL Total Bilirubin 0.8 (0.2-1.3) mg/dL AST 123 H (17-59) U/L ALT 76 H (21-72) U/L Alkaline Phosphatase 258 H (38-126) U/L Troponin I (0.000-0.034) ng/mL NT-Pro-B Natriuret Pep pg/mL Total Protein 6.7 (6.3-8.2) g/dL Albumin 3.3 L (3.5-5.0) g/dL Urine Color Urine Appearance (Clear) Urine pH (5.0-8.0) Ur Specific [place] (1.001-1.035) Urine Protein (Negative) Urine Glucose (UA) (Negative) Urine Ketones (Negative) Urine Blood (Negative) Urine Nitrite (Negative) Urine Bilirubin (Negative) Urine Urobilinogen (<2.0) mg/dL Ur Leukocyte Esterase (Negative) Urine RBC (0-5) /hpf Urine WBC (0-5) /hpf Urine Mucus (None) /hpf 06/14/19 06/14/19 06/14/19 Range/Units 00:24 00:24 00:24 WBC (3.8-10.6) k/uL RBC (4.30-5.90) m/uL Hgb (13.0-17.5) gm/dL Hct (39.0-53.0) % MCV (80.0-100.0) fL MCH (25.0-35.0) pg MCHC (31.0-37.0) g/dL RDW (11.5-15.5) % Plt Count (150-450) k/uL Neutrophils % % Lymphocytes % % Monocytes % % Eosinophils % % Basophils % % Neutrophils # (1.3-7.7) k/uL Lymphocytes # (1.0-4.8) k/uL Monocytes # (0-1.0) k/uL Eosinophils # (0-0.7) k/uL Basophils # (0-0.2) k/uL PT (9.0-12.0) sec INR (<1.2) APTT (22.0-30.0) sec Sodium (137-145) mmol/L Potassium (3.5-5.1) mmol/L Chloride (98-107) mmol/L Carbon Dioxide (22-30) mmol/L Anion Gap mmol/L BUN (9-20) mg/dL Creatinine (0.66-1.25) mg/dL Est GFR (CKD-EPI)AfAm (>60 ml/min/1.73 sqM) Est GFR (CKD-EPI)NonAf (>60 ml/min/1.73 sqM) Glucose (74-99) mg/dL Calcium (8.4-10.2) mg/dL Magnesium (1.6-2.3) mg/dL Total Bilirubin (0.2-1.3) mg/dL AST (17-59) U/L ALT (21-72) U/L Alkaline Phosphatase (38-126) U/L Troponin I <0.012 (0.000-0.034) ng/mL NT-Pro-B Natriuret Pep 142 pg/mL Total Protein (6.3-8.2) g/dL Albumin (3.5-5.0) g/dL Urine Color Yellow Urine Appearance Clear (Clear) Urine pH 6.0 (5.0-8.0) Ur Specific [place] 1.021 (1.001-1.035) Urine Protein Negative (Negative) Urine Glucose (UA) Negative (Negative) Urine Ketones Negative (Negative) Urine Blood Small H (Negative) Urine Nitrite Negative (Negative) Urine Bilirubin Negative (Negative) Urine Urobilinogen 2.0 (<2.0) mg/dL Ur Leukocyte Esterase Negative (Negative) Urine RBC 3 (0-5) /hpf Urine WBC 1 (0-5) /hpf Urine Mucus Rare H (None) /hpf 06/14/19 03:36 EKG shows normal sinus rhythm possible left atrial enlargement. Left anterior vesicular block. Ventricular rate of 86 bpm. VT interval is 160 ms. QRS duration is 110 ms. QT QTc is 380/454 ms. - Radiology Data Radiology results: report reviewed Chest x-rays negative for any acute process. No changes. Right leg shows no evidence of DVT left leg shows no evidence of DVT. Disposition Clinical Impression: Peripheral edema, Leg pain, bilateral, Daily consumption of alcohol, Elevated liver enzymes Disposition: HOME SELF-CARE Condition: Good Instructions (If sedation given, give patient instructions): Leg Edema (ED) Additional Instructions: Please use medication as discussed. Please follow up with family doctor if symptoms have not improved over the next two days. Patient should attempt to keep feet up and elevated. Recommended wearing compression stockings as well. Anti-inflammatory medicine and the Lasix as prescribed. Please return to the emergency room if your symptoms increase or worsen or for any other concerns. [facility] [place]: [phone] [place] [address] Appointment is Necessary Call @6AM Wednesday, Wednesday, Wednesday & 8am-11am Only take patients with no insurance or Medicaid. ---Do not accept patient with Blue Cross, Medicare, or Commerical Insurance Prescriptions: Ibuprofen 600 mg PO TID #20 tablet Furosemide [Lasix] 40 mg PO DAILY #5 tablet Is patient prescribed a controlled substance at d/c from ED?: No Referrals: None,Stated [Primary Care Provider] - 1-2 days Sena Green MD [STAFF PHYSICIAN] - 1-2 days Cassandra Blount MD [REFERRING] - 1-2 days Dilan Piper MD [STAFF PHYSICIAN] - 1-2 days Time of Disposition: 02:17
--- NOTE | 2019-06-14 01:43 | US ---
EXAMINATION TYPE: US venous doppler duplex LE DATE OF EXAM: 06/14/2019 1:26 AM COMPARISON: NONE CLINICAL HISTORY: immobility, bilat swelling pain. Immobility, swelling and pain x 3 days. Worse toda y. No HX of DVT. Pt not on blood thinners. SIDE PERFORMED: Bilateral TECHNIQUE: The lower extremity deep venous system is examined utilizing real time linear array sonog dwayne with graded compression, doppler sonography and color-flow sonography. VESSELS IMAGED: External Iliac Vein (EIV) Common Femoral Vein Deep Femoral Vein Greater Saphenous Vein * Femoral Vein Popliteal Vein Small Saphenous Vein * Proximal Calf Veins (* superficial vessels) Right Leg: No evidence of DVT in veins imaged from prox calf veins to EIV. Curved probe used to show good color flow in distal femoral vein. Limited due to edema. Left Leg: No evidence of DVT in veins imaged from prox calf veins to EIV. IMPRESSION: No evidence of deep venous thrombosis in both legs.
[2019-06-14 02:20] VITALS: BP 124/83; PULSE 89; RESP 20
[2019-06-14] MEDS ORDERED: ACET/COD 300 MG/30 MG STARTER PACK 6 TAB BTL PO STA (02:20)
== END 2019-06-14 02:32 | disposition home or self-care (01) ==
LOC: EC 23:18
DX: M79.604 Pain in right leg (principal); R60.9 Edema, unspecified; R74.8 Abnormal levels of other serum enzymes; Z78.9 Other specified health status; F17.200 Nicotine dependence, unspecified, uncomplicated; Z91.041 Radiographic dye allergy status; Z98.1 Arthrodesis status
CPT/HCPCS: 36415; 93005; 83880; 80053; 83735; 84484; 85025; 85610; 85730; 81001; 71046; 93970; 99284; 96374; 96361 ×2; J2270

== ENCOUNTER 2019-10-10 17:04 | Emergency (ER) | payer OTHER ==
--- NOTE | 2019-10-10 18:09 | ED ---
Extremity Problem HPI - General Chief complaint: Extremity Problem,Nontraumatic Stated complaint: Feet swelling Time Seen by Provider: 10/10/19 17:23 Source: patient, RN notes reviewed, old records reviewed Mode of arrival: wheelchair Limitations: no limitations - History of Present Illness Initial comments: This is a 59-year-old male DF for evaluation bilateral Shorty swelling and edema. Patient does admit to some occasional shortness breath is smoker with cough. Says he is a little itchy or abdominal itchiness edema. The mainly lower extremity pain or edema history of same multiple ER visits for same. MD Complaint: extremity pain, extremity swelling -: days(s) Location: bilateral lower extremity History of Same: Yes Radiation: proximal Severity scale (1-10): 6 Quality: aching Consistency: constant Improves with: nothing Worsens with: nothing Associated Symptoms: denies other symptoms - Related Data Previous Rx's Medication Instructions Recorded Furosemide [Lasix] 40 mg PO DAILY #5 tablet 06/14/19 Ibuprofen 600 mg PO TID #20 tablet 06/14/19 Allergies Allergy/AdvReac Type Severity Reaction Status Date / Time Iodinated Contrast Media AdvReac Nausea Verified 06/13/19 23:25 [Iodinated Contrast Media - Oral and] Review of Systems ROS Statement: Those systems with pertinent positive or pertinent negative responses have been documented in the HPI. ROS Other: All systems not noted in ROS Statement are negative. Past Medical History Past Medical History: Asthma, GERD/Reflux, Hypertension, Osteoarthritis (OA) Additional Past Medical History / Comment(s): occ high BP-no rx, fx left shouDER History of Any Multi-Drug Resistant Organisms: None Reported Past Surgical History: Back Surgery, Hernia Repair, Orthopedic Surgery Additional Past Surgical History / Comment(s): 05/22/16 ORIF L shoulder. Other surgical hx: BACK fusion & neck fusion, carpal tunnel-rt Past Anesthesia/Blood Transfusion Reactions: Motion Sickness Past Psychological History: No Psychological Hx Reported Smoking Status: Current every day smoker Past Alcohol Use History: Daily Past Drug Use History: None Reported - Past Family History Sister(s) Family Medical History: Cancer, Deep Vein Thrombosis (DVT) General Exam Limitations: no limitations General appearance: alert, in no apparent distress Head exam: Present: atraumatic, normocephalic, normal inspection Eye exam: Present: normal appearance, PERRL, EOMI. Absent: scleral icterus, conjunctival injection, periorbital swelling ENT exam: Present: normal exam, mucous membranes moist Neck exam: Present: normal inspection. Absent: tenderness, meningismus, lymphadenopathy Respiratory exam: Present: normal lung sounds bilaterally. Absent: respiratory distress, wheezes, rales, rhonchi, stridor Cardiovascular Exam: Present: normal rhythm, tachycardia, normal heart sounds. Absent: systolic murmur, diastolic murmur, rubs, gallop, clicks GI/Abdominal exam: Present: soft, normal bowel sounds. Absent: distended, tenderness, guarding, rebound, rigid Extremities exam: Present: normal inspection, full ROM, normal capillary refill, other (Bilateral lower extremity edema, 3+). Absent: tenderness, pedal edema, joint swelling, calf tenderness Back exam: Present: normal inspection Neurological exam: Present: alert, oriented X3, CN II-XII intact Psychiatric exam: Present: normal affect, normal mood Skin exam: Present: warm, dry, intact, normal color. Absent: rash Course Vital Signs 10/10/19 10/10/19 10/10/19 17:05 17:26 18:25 Temperature 97.5 F L 98.4 F Pulse Rate 106 H 95 93 Pulse Rate [ 95 Pulse Oximetery ] Respiratory 20 24 20 Rate Blood Pressure 131/81 133/84 126/83 O2 Sat by Pulse 96 97 92 L Oximetry 10/10/19 10/10/19 10/10/19 18:33 18:41 19:23 Temperature 98.3 F Pulse Rate 91 93 102 H Pulse Rate [ Pulse Oximetery ] Respiratory 20 Rate Blood Pressure 136/91 O2 Sat by Pulse 99 Oximetry - Reevaluation(s) Reevaluation #1: 10/10/19 18:09 medical record and prior er visits are reviewed Reevaluation #2: 10/10/19 19:31 Patient will be placed on Lasix secondary lower extremity edema will hopefully help with pain. Chest x-ray is otherwise negative Medical Decision Making - Medical Decision Making 59 male DF bilateral lower extremity edema likely from right-sided prior secondary to COPD, no fluid in the lungs BMP is negative. Patient was placed on outpatient Lasix dose and can be discharged home - Lab Data Result diagrams: 10/10/19 18:16 10/10/19 18:16 Lab Results 10/10/19 10/10/1910/10/20 Range/Units 18:16 18:16 18:16 WBC 7.7 (3.8-10.6) k/uL RBC 4.14 L (4.30-5.90) m/uL Hgb 13.1 (13.0-17.5) gm/dL Hct 39.4 (39.0-53.0) % MCV 95.1 (80.0-100.0) fL MCH 31.7 (25.0-35.0) pg MCHC 33.3 (31.0-37.0) g/dL RDW 14.7 (11.5-15.5) % Plt Count 210 (150-450) k/uL Neutrophils % 58 % Lymphocytes % 31 % Monocytes % 5 % Eosinophils % 3 % Basophils % 1 % Neutrophils # 4.5 (1.3-7.7) k/uL Lymphocytes # 2.4 (1.0-4.8) k/uL Monocytes # 0.4 (0-1.0) k/uL Eosinophils # 0.2 (0-0.7) k/uL Basophils # 0.1 (0-0.2) k/uL Sodium 138 (137-145) mmol/L Potassium 4.0 (3.5-5.1) mmol/L Chloride 107 (98-107) mmol/L Carbon Dioxide 25 (22-30) mmol/L Anion Gap 6 mmol/L BUN 11 (9-20) mg/dL Creatinine 0.73 (0.66-1.25) mg/dL Est GFR (CKD-EPI)AfAm >90 (>60 ml/min/1.73 sqM) Est GFR (CKD-EPI)NonAf >90 (>60 ml/min/1.73 sqM) Glucose 102 H (74-99) mg/dL Calcium 9.2 (8.4-10.2) mg/dL Phosphorus 2.8 (2.5-4.5) mg/dL Magnesium 1.9 (1.6-2.3) mg/dL Total Bilirubin 1.4 H (0.2-1.3) mg/dL AST 121 H (17-59) U/L ALT 49 (4-49) U/L Alkaline Phosphatase 231 H (38-126) U/L NT-Pro-B Natriuret Pep 188 pg/mL Total Protein 7.1 (6.3-8.2) g/dL Albumin 3.7 (3.5-5.0) g/dL - Radiology Data Radiology results: report reviewed (Chest x-ray is negative for acute disease), image reviewed Disposition Clinical Impression: Bilateral lower extremity edema Disposition: HOME SELF-CARE Condition: Good Instructions (If sedation given, give patient instructions): Leg Edema (ED), Cor Pulmonale (DC) Is patient prescribed a controlled substance at d/c from ED?: No Referrals: None,Stated [Primary Care Provider] - 1-2 days
[2019-10-10] MEDS ORDERED: IPRATROPIUM-ALBUTEROL 3 ML NEB INHALATION STA (18:10)
[2019-10-10] MEDS ORDERED: FUROSEMIDE 10 MG/ML 4 ML VIAL IV STA (18:10)
[2019-10-10 18:25] VITALS: RESP 20
--- NOTE | 2019-10-10 18:36 | XR ---
EXAMINATION TYPE: XR chest 2V DATE OF EXAM: 10/10/2019 COMPARISON: NONE HISTORY: Leg swelling TECHNIQUE: 2 views FINDINGS: Heart is normal. Lungs are clear of infiltrate. There is no pleural effusion. Bony thorax i s intact. IMPRESSION: Normal chest. No change.
[2019-10-10 19:07] LABS: ALT 49 U/L (4-49); AST 121 U/L (17-59); African American GFR (CKD) >90 (>60 ml/min/1.73 sqM); Albumin 3.7 g/dL (3.5-5.0); Alkaline Phosphatase 231 U/L (38-126); Anion Gap 6 mmol/L; Blood Urea Nitrogen 11 mg/dL (9-20); Calcium 9.2 mg/dL (8.4-10.2); Carbon Dioxide 25 mmol/L (22-30); Chloride 107 mmol/L (98-107); Glucose 102 mg/dL (74-99); Magnesium 1.9 mg/dL (1.6-2.3); Non-African American GFR(CKD) >90 (>60 ml/min/1.73 sqM); Phosphorus 2.8 mg/dL (2.5-4.5); Sodium 138 mmol/L (137-145); Total Bilirubin 1.4 mg/dL (0.2-1.3); Total Protein 7.1 g/dL (6.3-8.2)
[2019-10-10 19:15] LABS: HCT 39.4 % (39.0-53.0); HGB 13.1 gm/dL (13.0-17.5); RBC 4.14 m/uL (4.30-5.90); WBC 7.7 k/uL (3.8-10.6)
[2019-10-10 19:16] LABS: Lymphocytes % (A) 31 %; MCH 31.7 pg (25.0-35.0); MCHC 33.3 g/dL (31.0-37.0); MCV 95.1 fL (80.0-100.0); Mean Platelet Volume 7.8; Neutrophils % (A) 58 %; Platelet Count 210 k/uL (150-450); RDW 14.7 % (11.5-15.5)
[2019-10-10 19:17] LABS: Basophils # (A) 0.1 k/uL (0-0.2); Basophils % (A) 1 %; Eosinophils # (A) 0.2 k/uL (0-0.7); Eosinophils % (A) 3 %; Lymphocytes # (A) 2.4 k/uL (1.0-4.8); Monocytes # (A) 0.4 k/uL (0-1.0); Monocytes % (A) 5 %; Neutrophils # (A) 4.5 k/uL (1.3-7.7)
[2019-10-10 19:24] VITALS: BP 136/91; PULSE 102; TEMP 98.3
== END 2019-10-10 19:59 | disposition home or self-care (01) ==
LOC: EC 17:04
DX: R60.0 Localized edema (principal); I10 Essential (primary) hypertension; M19.90 Unspecified osteoarthritis, unspecified site; F17.200 Nicotine dependence, unspecified, uncomplicated; Z91.041 Radiographic dye allergy status
CPT/HCPCS: 36415; 94640; 83880; 80053; 83735; 84100; 85025; 71046; 99284; 96374; J1940

== ENCOUNTER 2021-03-18 06:38 | Emergency (ER) | payer OTHER ==
[2021-03-18 06:45] VITALS: BP 140/85; PULSE 99; RESP 18; TEMP 98.4
[2021-03-18] MEDS ORDERED: HYDROcodone/APAP 5-325MG 1 EACH TAB PO STA (06:58)
--- NOTE | 2021-03-18 07:15 | ED ---
General Adult HPI - General Chief complaint: Extremity Problem,Nontraumatic Stated complaint: R leg pain Time Seen by Provider: 03/18/21 06:50 Source: patient, RN notes reviewed Mode of arrival: ambulatory Limitations: no limitations - History of Present Illness Initial comments: This a 61-year-old male presents emergency department to complaint of right knee, right leg pain. Patient states he woke up with pain today. Patient states he feels like it's cramping back was leg. Denies any chest pain or shortness breath. No history of DVT or PE. He states there is no singeing swelling states pain is worse with movement denies any trauma no fevers chills. She also states he has left wrist pain but he uses a cane states that this may be aggravated. Patient denies any chest pain shortness of breath complaints. - Related Data Previous Rx's Medication Instructions Recorded predniSONE 50 mg PO DAILY #5 tab 03/18/21 Allergies Allergy/AdvReac Type Severity Reaction Status Date / Time Iodinated Contrast Media AdvReac Nausea Verified 03/18/21 07:33 [Iodinated Contrast Media - Oral and] Review of Systems ROS Statement: Those systems with pertinent positive or pertinent negative responses have been documented in the HPI. ROS Other: All systems not noted in ROS Statement are negative. Past Medical History Past Medical History: Asthma, GERD/Reflux, Hypertension, Osteoarthritis (OA) Additional Past Medical History / Comment(s): occ high BP-no rx, fx left shouDER History of Any Multi-Drug Resistant Organisms: None Reported Past Surgical History: Back Surgery, Hernia Repair, Orthopedic Surgery Additional Past Surgical History / Comment(s): 05/22/16 ORIF L shoulder. Other surgical hx: BACK fusion & neck fusion, carpal tunnel-rt Past Anesthesia/Blood Transfusion Reactions: Motion Sickness Past Psychological History: No Psychological Hx Reported Smoking Status: Current every day smoker Past Alcohol Use History: Daily Past Drug Use History: None Reported - Past Family History Sister(s) Family Medical History: Cancer, Deep Vein Thrombosis (DVT) General Exam Limitations: no limitations General appearance: alert, in no apparent distress Head exam: Present: atraumatic, normocephalic, normal inspection Respiratory exam: Present: normal lung sounds bilaterally. Absent: respiratory distress, wheezes, rales, rhonchi, stridor Cardiovascular Exam: Present: regular rate, normal rhythm, normal heart sounds. Absent: systolic murmur, diastolic murmur, rubs, gallop, clicks Extremities exam: Present: other (Right knee mild pain with palpation the popliteal region, patient does have full range of motion mild discomfort no warmth erythema no significant swelling pedal pulses equal bilaterally no calf tenderness left wrist full range of motion nontender no significant swelling no obvious deformity.) Skin exam: Present: warm, dry, intact, normal color. Absent: rash Course Vital Signs 03/18/21 06:41 Temperature 98.4 F Pulse Rate 99 Respiratory 18 Rate Blood Pressure 140/85 O2 Sat by Pulse 98 Oximetry Medical Decision Making - Medical Decision Making 61-year-old male presented for joint pain. Patient had issues and which was concerned about possible DVT. Ultrasound was obtained which is negative. Patient provided short course of pain meds, steroids will be started patient will have close follow-up return parameters were discussed. Disposition Clinical Impression: Arthralgia, Right knee pain Disposition: HOME SELF-CARE Condition: Stable Instructions (If sedation given, give patient instructions): Arthralgia (ED), Knee Pain (ED) Additional Instructions: Please return to the Emergency Department if symptoms worsen or any other concerns. Prescriptions: predniSONE 50 mg PO DAILY #5 tab Is patient prescribed a controlled substance at d/c from ED?: No Referrals: None,Stated [Primary Care Provider] - 1-2 days Talha Niteo MD [STAFF PHYSICIAN] - 1-2 days Time of Disposition: 08:09
--- NOTE | 2021-03-18 08:02 | US ---
EXAMINATION TYPE: US venous doppler duplex LE RT DATE OF EXAM: 03/18/2021 7:35 AM COMPARISON: US 06/14/2019 CLINICAL HISTORY: pain. SIDE PERFORMED: Right TECHNIQUE: The lower extremity deep venous system is examined utilizing real time linear array sonog dwayne with graded compression, doppler sonography and color-flow sonography. VESSELS IMAGED: Common Femoral Vein Deep Femoral Vein Greater Saphenous Vein * Femoral Vein Popliteal Vein Proximal Calf Veins (* superficial vessels) Right Leg: Negative for DVT IMPRESSION: No sonographic evidence for right lower extremity deep vein thrombosis.
[2021-03-18] MEDS ORDERED: ACET/COD 300 MG/30 MG STARTER PACK 6 TAB BTL PO STA (08:05)
== END 2021-03-18 08:21 | disposition home or self-care (01) ==
LOC: EC 06:38
DX: M25.561 Pain in right knee (principal); M25.50 Pain in unspecified joint; K21.9 Gastro-esophageal reflux disease without esophagitis; J45.909 Unspecified asthma, uncomplicated; I10 Essential (primary) hypertension; F17.200 Nicotine dependence, unspecified, uncomplicated; M19.90 Unspecified osteoarthritis, unspecified site
CPT/HCPCS: 99283

== ENCOUNTER 2021-06-01 06:54 | Emergency (ER) | payer OTHER ==
[2021-06-01 07:03] VITALS: BP 173/119; PULSE 80; RESP 18; TEMP 97.9
[2021-06-01] MEDS ORDERED: KETOROLAC 15 MG/ML 1 ML VIAL IM STA (07:19)
--- NOTE | 2021-06-01 07:30 | ED ---
General Adult HPI - General Chief complaint: Extremity Injury, Lower Stated complaint: Right knee pain Time Seen by Provider: 06/01/21 07:04 Source: patient, RN notes reviewed Mode of arrival: ambulatory Limitations: no limitations - History of Present Illness Initial comments: 61-year-old male presents to the emergency department with a 2 day history of right knee pain. States pain is localized in two locations, both anterior and posterior, aspects of the knee. States pain began upon arising from bed and worsens with any weight-bearing or range of motion activity. Describes discomfort as a burning pain and reports feeling "a pulling" sensation behind his knee when he attempts to straighten it. Patient denies recent injury or trauma; states he ambulates with a cane, and relies on a electric wheelchair for longer distances. Patient denies attempting to treat his pain with ice or medication prior to arrival. - Related Data Previous Rx's Medication Instructions Recorded predniSONE 50 mg PO DAILY #5 tab 03/18/21 Allergies Allergy/AdvReac Type Severity Reaction Status Date / Time Iodinated Contrast Media AdvReac Nausea Verified 06/01/21 07:03 [Iodinated Contrast Media - Oral and] Review of Systems ROS Statement: Those systems with pertinent positive or pertinent negative responses have been documented in the HPI. ROS Other: All systems not noted in ROS Statement are negative. Past Medical History Past Medical History: Asthma, GERD/Reflux, Hypertension, Osteoarthritis (OA) Additional Past Medical History / Comment(s): occ high BP-no rx, fx left shouDER History of Any Multi-Drug Resistant Organisms: None Reported Past Surgical History: Back Surgery, Hernia Repair, Orthopedic Surgery Additional Past Surgical History / Comment(s): 05/22/16 ORIF L shoulder. Other surgical hx: BACK fusion & neck fusion, carpal tunnel-rt Past Anesthesia/Blood Transfusion Reactions: Motion Sickness Past Psychological History: No Psychological Hx Reported Smoking Status: Current every day smoker Past Alcohol Use History: Daily Past Drug Use History: None Reported - Past Family History Sister(s) Family Medical History: Cancer, Deep Vein Thrombosis (DVT) General Exam Limitations: no limitations General appearance: alert, in no apparent distress, other (Well-developed, well- nourished male in no acute distress) Respiratory exam: Present: normal lung sounds bilaterally. Absent: respiratory distress, wheezes, rales, rhonchi, stridor Cardiovascular Exam: Present: regular rate, normal rhythm, normal heart sounds. Absent: systolic murmur, diastolic murmur, rubs, gallop, clicks Right Upper Leg exam: Present: normal inspection. Absent: tenderness, swelling Knee exam: Present: full ROM (Limited extension of the right knee when compared to the left), tenderness (Tenderness upon palpation of the medial knee ), swelling (Mild swelling noted to the anterior medial aspect of the right knee) Lower Leg exam: Present: normal inspection, full ROM. Absent: tenderness, swelling Ankle exam: Present: normal inspection, full ROM. Absent: tenderness, swelling Neurovascular tendon exam: Present: no vascular compromise. Absent: pulse deficit, abnormal cap refill Neurological exam: Present: alert, oriented X3 Psychiatric exam: Present: normal affect, normal mood Skin exam: Present: warm, dry, intact, normal color Course Vital Signs 06/01/21 07:02 Temperature 97.9 F Pulse Rate 80 Respiratory 18 Rate Blood Pressure 173/119 O2 Sat by Pulse 95 Oximetry Medical Decision Making - Medical Decision Making 61-year-old male with a 2 day history of non-injurious right knee pain and mild anterior-medial swelling. X-ray of the right knee was obtained, findings include a small joint effusion and moderate narrowing of the medial compartment. Patient was instructed to follow-up with orthopedics for further evaluation and treatment. Patient's pain was treated in the emergency department and he reports improvement of comfort level upon departure. Return parameters were discussed in detail. Patient verbalizes understanding and agrees with this plan. - Radiology Data Radiology results: report reviewed, image reviewed X-ray of the right knee was obtained. Impression per includes a small joint effusion, moderate narrowing of the medial compartment of the right knee which is increased in interval since prior study, vascular calcifications, no acute fracture or dislocation. Disposition Clinical Impression: Knee pain, right, Osteoarthritis, knee Disposition: HOME SELF-CARE Condition: Stable Instructions (If sedation given, give patient instructions): Osteoarthritis (ED), Knee Pain (ED) Additional Instructions: Rest, ice, follow-up with orthopedist for further evaluation and treatment. Return to the emergency department with any new, worsening, or concerning symptoms. Is patient prescribed a controlled substance at d/c from ED?: No Referrals: Duke Tinajero MD [Primary Care Provider] - 1-2 days Time of Disposition: 08:04
--- NOTE | 2021-06-01 07:52 | XR ---
Right knee. HISTORY: Pain without known injury. COMPARISON: 08/27/2015. TECHNIQUE: 3 views the right knee were obtained. There is no fracture or focal intraosseous abnormality. Small joint effusion is present. There is mild to moderate narrowing of the medial compartment knee osteoarthritis. Degree of narrowin g has increased in the interval since the prior study. There is also mild spurring of the patella. Mild degenerative change patellofemoral compartment as we ll. There are no focal intraosseous abnormality. There is no radiopaque foreign body. There is mild arter iovascular calcification. IMPRESSION: 1. Small joint effusion. 2. Moderate narrowing of the medial compartment the knee which has increased in the interval since pr ior study. The findings are consistent with osteoarthritic change. 3. Vascular calcifications. 4. No acute fracture or dislocation.
[2021-06-01] MEDS ORDERED: ACET/COD 300 MG/30 MG STARTER PACK 6 TAB BTL PO STA (08:00)
== END 2021-06-01 08:21 | disposition home or self-care (01) ==
LOC: SUPCPDRO 06:54 → EC 06:54
DX: M17.11 Unilateral primary osteoarthritis, right knee (principal); J45.909 Unspecified asthma, uncomplicated; I10 Essential (primary) hypertension; K21.9 Gastro-esophageal reflux disease without esophagitis; F17.200 Nicotine dependence, unspecified, uncomplicated
CPT/HCPCS: 73562; 99283; 96372; J1885

== ENCOUNTER 2021-09-05 04:55 | Emergency (ER) | payer OTHER ==
[2021-09-05 05:02] VITALS: RESP 18
[2021-09-05] MEDS ORDERED: DIAZEPAM 5 MG/ML 2 ML INJ IM ONE (05:32)
[2021-09-05] MEDS ORDERED: Acetaminophen-Codeine 300-30mg TAB PO STA (05:32)
[2021-09-05] MEDS ORDERED: ONDANSETRON ODT 4 MG TAB PO STA (05:32)
--- NOTE | 2021-09-05 05:34 | ED ---
Back Pain HPI - General Chief Complaint: Psychiatric Symptoms Stated Complaint: Back pain Time Seen by Provider: 09/05/21 05:06 Source: patient, RN notes reviewed, old records reviewed Limitations: no limitations - History of Present Illness Initial Comments: This is a 61-year-old male DF for evaluation. Patient is a few complaints today mainly complaining of alcohol withdrawal concern for alcohol abuse. He admits to depression disease coming in tonight and he did drink today. Patient is not homicidal or suicidal currently. States she's had some family which is ca uses increasing history over the past year. No travel history sick contacts no other complaints. MD Complaint: back pain, back injury -: year(s) Similar Symptoms Previously: Yes Place: home Radiation: none Severity: moderate Severity scale (1-10): 5 Quality: burning, dull Consistency: constant Improves With: none Worsens With: none Associated Symptoms: denies other symptoms Treatments Prior to Arrival: other (none) - Related Data Previous Rx's Medication Instructions Recorded predniSONE 50 mg PO DAILY #5 tab 03/18/21 Diazepam [Valium] 5 mg PO TID PRN 3 Days #9 tab 09/05/21 Allergies Allergy/AdvReac Type Severity Reaction Status Date / Time Iodinated Contrast Media AdvReac Nausea Verified 09/05/21 04:59 [Iodinated Contrast Media - Oral and] Review of Systems ROS Statement: Those systems with pertinent positive or pertinent negative responses have been documented in the HPI. ROS Other: All systems not noted in ROS Statement are negative. Past Medical History Past Medical History: Asthma, GERD/Reflux, Hypertension, Osteoarthritis (OA) Additional Past Medical History / Comment(s): occ high BP-no rx, fx left shouDER History of Any Multi-Drug Resistant Organisms: None Reported Past Surgical History: Back Surgery, Hernia Repair, Orthopedic Surgery Additional Past Surgical History / Comment(s): 05/22/16 ORIF L shoulder. Other surgical hx: BACK fusion & neck fusion, carpal tunnel-rt Past Anesthesia/Blood Transfusion Reactions: Motion Sickness Past Psychological History: Depression Smoking Status: Current every day smoker Past Alcohol Use History: Daily, Heavy Past Drug Use History: None Reported - Past Family History Sister(s) Family Medical History: Cancer, Deep Vein Thrombosis (DVT) General Exam Limitations: no limitations General appearance: alert, in no apparent distress Head exam: Present: atraumatic, normocephalic, normal inspection Eye exam: Present: normal appearance, PERRL, EOMI. Absent: scleral icterus, conjunctival injection, periorbital swelling ENT exam: Present: normal exam, mucous membranes moist Neck exam: Present: normal inspection. Absent: tenderness, meningismus, lymphadenopathy Respiratory exam: Present: normal lung sounds bilaterally. Absent: respiratory distress, wheezes, rales, rhonchi, stridor Cardiovascular Exam: Present: regular rate, normal rhythm, normal heart sounds. Absent: systolic murmur, diastolic murmur, rubs, gallop, clicks GI/Abdominal exam: Present: soft, normal bowel sounds. Absent: distended, tenderness, guarding, rebound, rigid Extremities exam: Present: normal inspection, full ROM, normal capillary refill. Absent: tenderness, pedal edema, joint swelling, calf tenderness Back exam: Present: normal inspection Neurological exam: Present: alert, oriented X3, CN II-XII intact Psychiatric exam: Present: normal affect, normal mood Skin exam: Present: warm, dry, intact, normal color. Absent: rash Course Vital Signs 09/05/21 09/05/21 04:59 06:47 Temperature 98.0 F 98.4 F Pulse Rate 97 94 Respiratory 18 18 Rate Blood Pressure 145/99 146/82 O2 Sat by Pulse 98 95 Oximetry - Reevaluation(s) Reevaluation #1: Medical record is reviewed Patient now requiring psychiatric admission Patient feeling improved with anxiolysis here in the emergency department Patient okay for discharge home Medical Decision Making - Medical Decision Making 61 male is here for help with alcohol intoxication pending withdrawals patient not currently showing withdrawal symptoms now. Patient feels good for discharge home not homicidal or suicidal. - Radiology Data Radiology results: report reviewed (Lumbar spine x-rays negative for significant acute disease), image reviewed Disposition Clinical Impression: Depression, Back pain, Alcohol withdrawal Disposition: HOME SELF-CARE Condition: Fair Instructions (If sedation given, give patient instructions): Alcohol Withdrawal (ED) Prescriptions: Diazepam [Valium] 5 mg PO TID PRN 3 Days #9 tab PRN Reason: Mild Anxiety Is patient prescribed a controlled substance at d/c from ED?: No Referrals: None,Stated [Primary Care Provider] - 1-2 days
--- NOTE | 2021-09-05 06:11 | XR ---
EXAMINATION TYPE: XR lumbar spine 2 or 3V DATE OF EXAM: 09/05/2021 COMPARISON: 01/26/2017 HISTORY: Back pain TECHNIQUE: 3 views FINDINGS: There are rods and screws fusing posteriorly the lumbar spine from L3 to S1. There is robert ectomy defect. I see no acute fracture nor dislocation. There is straightening of the lumbar spine. T here is slight anterior subluxation of L2 in relation to L3. Abdominal aorta is atheromatous. Sacroil iac joints are intact. IMPRESSION: Previous surgery. L2-3 mild subluxation deformity appears stable compared to old exam. No acute bony abnormality. IMPRESSION:
[2021-09-05] MEDS ORDERED: diazePAM 5 MG TAB PO STA (06:32)
[2021-09-05] MEDS ORDERED: ONDANSETRON 4 MG ODT STARTER PACK 2 TAB BTL PO STA (06:33)
[2021-09-05] MEDS ORDERED: ACET/COD 300 MG/30 MG STARTER PACK 6 TAB BTL PO STA (06:33)
[2021-09-05 06:56] VITALS: BP 146/82; PULSE 94; TEMP 98.4
== END 2021-09-05 06:50 | disposition home or self-care (01) ==
LOC: EC 04:55
DX: F10.239 Alcohol dependence with withdrawal, unspecified (principal); F32.A Depression, unspecified; M54.50 Low back pain, unspecified; I10 Essential (primary) hypertension; J45.909 Unspecified asthma, uncomplicated; K21.9 Gastro-esophageal reflux disease without esophagitis; F17.200 Nicotine dependence, unspecified, uncomplicated; Z79.52 Long term (current) use of systemic steroids; Z79.899 Other long term (current) drug therapy; Y90.9 Presence of alcohol in blood, level not specified
CPT/HCPCS: 72100; 99284; 96372; J3360; S0119

== ENCOUNTER 2021-10-24 18:19 | Emergency (ER) | payer OTHER ==
[2021-10-24 19:22] VITALS: TEMP 97.1
--- NOTE | 2021-10-24 19:40 | XR ---
EXAMINATION TYPE: XR knee complete RT DATE OF EXAM: 10/24/2021 COMPARISON: 08/27/2015 HISTORY: Knee pain TECHNIQUE: 3 views FINDINGS: There is some spurring of the medial femoral and tibial condyles. I see no fracture nor dis location. There is small knee joint effusion. There is minor spurring on the patella. IMPRESSION: There is some hypertrophic osteoarthritis with small knee joint effusion. No fracture. Th ere is some progression of the spur formation compared to the old exam.
[2021-10-24] MEDS ORDERED: ACET/COD 300 MG/30 MG STARTER PACK 6 TAB BTL PO STA (21:33)
[2021-10-24] MEDS ORDERED: IBUPROFEN 600 MG STARTER PACK 4 TAB BTL PO STA (21:33)
--- NOTE | 2021-10-24 21:36 | ED ---
Lower Extremity Injury HPI - General Chief Complaint: Extremity Injury, Lower Stated Complaint: rt knee pain Time Seen by Provider: 10/24/21 21:23 Source: patient Mode of arrival: wheelchair Limitations: no limitations - History of Present Illness Initial Comments: 61-year-old male patient presents to the emergency department today for evaluation of right knee pain. Patient states he's been having knee pain for quite a long time. States over the last 3 days he has had a couple falls due to the knee giving out on him. States a has had intermittent swelling to the knee. Denies any redness, fever, or chills. He has had have the knee drained in the past by Dr. [facility]. He denies hitting the knee during the fall. He denies hitting his head or losing consciousness. Denies any other injuries. Denies taking any medication for his pain. Patient denies any headache, neck pain, back pain, chest pain, shortness of breath, dizziness, weakness, abdominal pain, nausea, vomiting, or difficulties with bowel movements or urination. - Related Data Previous Rx's Medication Instructions Recorded predniSONE 50 mg PO DAILY #5 tab 03/18/21 Diazepam [Valium] 5 mg PO TID PRN 3 Days #9 tab 09/05/21 Naproxen [EC-Naprosyn] 500 mg PO BID PRN #30 tab 10/24/21 Allergies Allergy/AdvReac Type Severity Reaction Status Date / Time Iodinated Contrast Media AdvReac Nausea Verified 10/24/21 19:19 [Iodinated Contrast Media - Oral and] Review of Systems ROS Statement: Those systems with pertinent positive or pertinent negative responses have been documented in the HPI. ROS Other: All systems not noted in ROS Statement are negative. Past Medical History Past Medical History: Asthma, GERD/Reflux, Hypertension, Osteoarthritis (OA) Additional Past Medical History / Comment(s): occ high BP-no rx, fx left shouDER History of Any Multi-Drug Resistant Organisms: None Reported Past Surgical History: Back Surgery, Hernia Repair, Orthopedic Surgery Additional Past Surgical History / Comment(s): 05/22/16 ORIF L shoulder. Other surgical hx: BACK fusion & neck fusion, carpal tunnel-rt Past Anesthesia/Blood Transfusion Reactions: Motion Sickness Past Psychological History: Depression Smoking Status: Current every day smoker Past Alcohol Use History: Daily, Heavy Past Drug Use History: None Reported - Past Family History Sister(s) Family Medical History: Cancer, Deep Vein Thrombosis (DVT) General Exam Limitations: no limitations General appearance: alert, in no apparent distress, other (This is a well- developed, well-nourished adult male in no acute distress.) Neck exam: Present: normal inspection, full ROM, other (Nontender, no step-off, no deformity to firm midline palpation of the posterior cervical spine. Full range of motion without pain or limitation.). Absent: tenderness, meningismus, lymphadenopathy Respiratory exam: Present: normal lung sounds bilaterally. Absent: respiratory distress, wheezes, rales, rhonchi, stridor Cardiovascular Exam: Present: regular rate, normal rhythm, normal heart sounds. Absent: systolic murmur, diastolic murmur, rubs, gallop, clicks Extremities exam: Present: normal inspection, full ROM, normal capillary refill, other (Full range of motion of the knee is intact, full extension and full flexion. Skin is warm and dry. Cap refill less than 3 seconds. Pedal pulses 2+.). Absent: tenderness, pedal edema, joint swelling, calf tenderness Back exam: Present: normal inspection. Absent: vertebral tenderness Neurological exam: Present: alert, oriented X3, CN II-XII intact Psychiatric exam: Present: normal affect, normal mood Skin exam: Present: warm, dry, intact, normal color. Absent: rash Course Vital Signs 10/24/21 10/24/21 19:19 21:55 Temperature 97.1 F L Pulse Rate 105 H 98 Respiratory 20 16 Rate Blood Pressure 132/81 115/78 O2 Sat by Pulse 97 97 Oximetry Medical Decision Making - Medical Decision Making Della 1-year-old male patient presents to the emergency department today for evaluation of right knee pain. Physical examination is unremarkable. X-ray was obtained and did reveal small joint effusion with hypertrophic osteoarthritis. Patient is given pain medication. We discharged up with orthopedics for further evaluation as soon as possible. Return parameters were discussed in detail. He verbalizes understanding and agrees with this plan. My attending is Dr. Gauthier. - Radiology Data Radiology results: report reviewed, image reviewed 3 views of the right knee are obtained. Report was reviewed in its entirety. Impression by Dr. Daugherty shows hypertrophic osteoarthritis small knee joint effusion. No fracture. There is some progression of the spur formation compared to the old exam. Disposition Clinical Impression: Hypertrophic osteoarthritis, Right knee pain, Effusion, right knee Disposition: HOME SELF-CARE Condition: Good Instructions (If sedation given, give patient instructions): Osteoarthritis (ED), Swollen Knee Joint (ED), Knee Pain (ED) Additional Instructions: Follow-up with family reunification specialist for further evaluation as it is possibly take medications as directed. Return to the emergency department for any new, worsening, or concerning symptoms. Prescriptions: Naproxen [EC-Naprosyn] 500 mg PO BID PRN #30 tab PRN Reason: Pain Is patient prescribed a controlled substance at d/c from ED?: No Referrals: None,Stated [Primary Care Provider] - 1-2 days Luis Mccord MD [STAFF PHYSICIAN] - 1-2 days Time of Disposition: 21:35
[2021-10-24 21:56] VITALS: BP 115/78; PULSE 98; RESP 16
== END 2021-10-24 21:56 | disposition home or self-care (01) ==
LOC: EC 18:19
DX: M17.11 Unilateral primary osteoarthritis, right knee (principal); M25.461 Effusion, right knee; J45.909 Unspecified asthma, uncomplicated; I10 Essential (primary) hypertension; M19.90 Unspecified osteoarthritis, unspecified site; F32.A Depression, unspecified; F17.200 Nicotine dependence, unspecified, uncomplicated; Z72.89 Other problems related to lifestyle
CPT/HCPCS: 99283

== ENCOUNTER 2021-10-29 00:04 | Emergency (ER) | payer OTHER ==
[2021-10-29 00:30] VITALS: BP 121/71; PULSE 99; RESP 18; TEMP 97.6
--- NOTE | 2021-10-29 01:45 | XR ---
EXAMINATION TYPE: XR knee complete RT DATE OF EXAM: 10/29/2021 COMPARISON: 10/24/2021 HISTORY: Knee pain TECHNIQUE: 3 views FINDINGS: There is knee joint effusion. There is some spurring on the patella. There is spurring of t he medial femoral and tibial condyles. I see no fracture nor dislocation. There is vascular calcifica tion. There is mild narrowing of the medial joint space. IMPRESSION: Mild osteoarthritis in the medial joint space. No fracture. No change. Small joint effusi on unchanged.
[2021-10-29] MEDS ORDERED: KETOROLAC 15 MG/ML 1 ML VIAL IM STA (02:44)
--- NOTE | 2021-10-29 02:53 | ED ---
General Adult HPI - General Chief complaint: Extremity Problem,Nontraumatic Stated complaint: Knee Pain Source: patient, EMS, RN notes reviewed Mode of arrival: EMS - History of Present Illness Initial comments: 61 year old male presents to the Emergency Department with complaints of right knee pain, which is a chronic issue for him. Patient states he was walking to the store when his knee gave out on him. States he did not fall, but had to rely on his cane to keep him upright and then called EMS to transport him. Patient reports missing an appointment with orthopedist for this same complaint yeste rday. Reports he was prescribed medicine from his last visit here that he was unable to obtain as it required a prior authorization. Patient denies any new injury, less of sensation, or worsening swelling. - Related Data Previous Rx's Medication Instructions Recorded predniSONE 50 mg PO DAILY #5 tab 03/18/21 Diazepam [Valium] 5 mg PO TID PRN 3 Days #9 tab 09/05/21 Naproxen [EC-Naprosyn] 500 mg PO BID PRN #30 tab 10/24/21 Allergies Allergy/AdvReac Type Severity Reaction Status Date / Time Iodinated Contrast Media AdvReac Nausea Verified 10/29/21 00:30 [Iodinated Contrast Media - Oral and] Review of Systems ROS Statement: Those systems with pertinent positive or pertinent negative responses have been documented in the HPI. ROS Other: All systems not noted in ROS Statement are negative. Past Medical History Past Medical History: Asthma, GERD/Reflux, Hypertension, Osteoarthritis (OA) Additional Past Medical History / Comment(s): occ high BP-no rx, fx left shouDER History of Any Multi-Drug Resistant Organisms: None Reported Past Surgical History: Back Surgery, Hernia Repair, Orthopedic Surgery Additional Past Surgical History / Comment(s): 05/22/16 ORIF L shoulder. Other surgical hx: BACK fusion & neck fusion, carpal tunnel-rt Past Anesthesia/Blood Transfusion Reactions: Motion Sickness Past Psychological History: Depression Smoking Status: Current every day smoker Past Alcohol Use History: Daily, Heavy Past Drug Use History: None Reported - Past Family History Sister(s) Family Medical History: Cancer, Deep Vein Thrombosis (DVT) General Exam Limitations: physical limitation (ambulates with a cane; chronic knee pain) General appearance: alert, in no apparent distress, other (well developed, well nourished male in no acute distress. Initial temperature 97.6, pulse 99, respirations 18, blood pressure 121/71, pulse ox 98% on room air.) Respiratory exam: Present: normal lung sounds bilaterally. Absent: respiratory distress, wheezes, rales, rhonchi, stridor Cardiovascular Exam: Present: regular rate, normal rhythm, normal heart sounds. Absent: systolic murmur, diastolic murmur, rubs, gallop, clicks Left Upper Leg exam: Present: normal inspection, full ROM. Absent: tenderness, swelling Knee exam: Present: normal inspection, full ROM. Absent: tenderness, swelling Lower Leg exam: Present: normal inspection, full ROM. Absent: tenderness, swelling Ankle exam: Present: normal inspection, full ROM. Absent: tenderness, swelling Foot/Toe exam: Present: normal inspection, full ROM. Absent: tenderness, swelling Neurovascular tendon exam: Present: no vascular compromise Right Upper Leg exam: Present: normal inspection, full ROM. Absent: tenderness, swelling Knee exam: Present: swelling (mild). Absent: deformity, crepitus, erythema Lower Leg exam: Present: normal inspection, full ROM. Absent: tenderness, swelling Ankle exam: Present: normal inspection, full ROM. Absent: tenderness, swelling Foot/Toe exam: Present: normal inspection, full ROM. Absent: tenderness, swelling Neurovascular tendon exam: Present: no vascular compromise Neurological exam: Present: alert, oriented X3, CN II-XII intact Psychiatric exam: Present: normal affect, normal mood Skin exam: Present: warm, dry, intact, normal color. Absent: rash Course Vital Signs 10/29/21 00:25 Temperature 97.6 F Pulse Rate 99 Respiratory 18 Rate Blood Pressure 121/71 O2 Sat by Pulse 98 Oximetry - Reevaluation(s) Reevaluation #1: 10/29/21 02:15 I explained to patient that his knee pain would not merit hospital admission and that he must follow up with orthopedics as scheduled. Medical Decision Making - Medical Decision Making 61-year-old male with a past medical history of osteoarthritis and chronic knee pain presents to the emergency department for evaluation of ongoing right knee discomfort. Upon exam, patient is well-appearing and in no acute distress. He is seated in a wheelchair and has his cane present at bedside. Right knee is mildly swollen when compared to left, however is not accompanied by erythema or decreased range of motion. Patient complains of pain with weight-bearing activity, however has a scooter that he uses at home. No acute or new injury preceded this visit. X-ray of the right knee was obtained in triage showing no changes from previous image taken 5 days ago. Results discussed with patient. Explained the importance of appropriate follow-up and maintaining appointments as scheduled. We discussed pain management with anti-inflammatories that he had previously been prescribed; declined to prescribe him any narcotic medications as this is a chronic pain issue. Toradol and Tylenol 3 were given with some improvement. Harjinder wrap was applied for compression and comfort. Patient will be discharged home to follow up with orthopedics. Return parameters were discussed in detail. Patient verbalizes understanding and agrees with this plan. - Radiology Data Radiology results: report reviewed, image reviewed Right knee x-ray was obtained. Report was reviewed in its entirety. Impression per Dr. Daugherty is mild osteoarthritis in the medial joint space. No fracture. No change. Small joint effusion unchanged. Disposition Clinical Impression: Chronic pain of right knee, Knee effusion, right Disposition: HOME SELF-CARE Condition: Stable Instructions (If sedation given, give patient instructions): Knee Pain (ED) Additional Instructions: You must follow up with your orthopedist. Maintain mobility and alternate with periods of rest. Harjinder wrap for compression. Continue to utilize your cane. Take Motrin or Tylenol if needed for pain. Return to the emergency department with any new, worsening, or concerning symptoms. Is patient prescribed a controlled substance at d/c from ED?: No Referrals: None,Stated [Primary Care Provider] - 1-2 days Luis Mccord MD [STAFF PHYSICIAN] - 1-2 days Time of Disposition: 02:57
[2021-10-29] MEDS ORDERED: ACET/COD 300 MG/30 MG STARTER PACK 6 TAB BTL PO STA (03:02)
== END 2021-10-29 03:20 | disposition home or self-care (01) ==
LOC: EC 00:04
DX: G89.29 Other chronic pain (principal); M25.461 Effusion, right knee; I10 Essential (primary) hypertension; J45.909 Unspecified asthma, uncomplicated; K21.9 Gastro-esophageal reflux disease without esophagitis; M19.90 Unspecified osteoarthritis, unspecified site; F32.A Depression, unspecified; F17.200 Nicotine dependence, unspecified, uncomplicated; Z79.52 Long term (current) use of systemic steroids; Z79.1 Long term (current) use of non-steroidal anti-inflammatories (NSAID); Z79.899 Other long term (current) drug therapy
CPT/HCPCS: 96372; 99283

== ENCOUNTER 2021-12-01 17:30 | Emergency (ER) | payer OTHER ==
[2021-12-01 17:39] VITALS: RESP 20; TEMP 98
[2021-12-01 18:01] LABS: Appearance,Urine Clear (Clear); Bilirubin,Urine Negative (Negative); Blood,Urine Trace (Negative); Color,Urine Light Yellow; Glucose,Urine (UA) Negative (Negative); Ketones,Urine Negative (Negative); Leukocyte Esterase,Urine Negative (Negative); Mucus,Urine Rare /hpf; Nitrite,Urine Negative (Negative); PH, Urine 6.5 (5.0-8.0); Protein,Urine Negative (Negative); RBC,Urine 4 /hpf (0-5); Specific Gravity,Urine 1.011 (1.001-1.035); Urobilinogen,Urine <2.0 mg/dL (<2.0); WBC,Urine 1 /hpf (0-5)
[2021-12-01] MEDS ORDERED: HYDROmorphone 1 MG/ML 1 ML SYRINGE IVP STA (19:50)
[2021-12-01] MEDS ORDERED: diphenhydrAMINE 50 MG/ML 1 ML VIAL IVP STA (19:51)
[2021-12-01] MEDS ORDERED: FAMOTIDINE 20 MG/2 ML VIAL IV STA (19:51)
[2021-12-01] MEDS ORDERED: methylPREDNISolone SOD SUCCI 125 MG/2 ML VIAL IV STA (19:51)
--- NOTE | 2021-12-01 19:55 | ED ---
General Adult HPI - General Chief complaint: Back Pain/Injury Stated complaint: Back pain Time Seen by Provider: 12/01/21 19:41 Source: patient, RN notes reviewed Mode of arrival: ambulatory Limitations: no limitations - History of Present Illness Initial comments: Patient is a pleasant 61-year-old male presenting to the emergency Department with right lower back discomfort for nonspecific symptoms was around 2 days ago. Discomfort is positional. Discomfort is also increase with movement. No trauma. No history of similar symptoms previously. Patient has also noticed right scrotal swelling for the past 3 or so days. You may be some minimal di scomfort. No fevers. No dysuria or hematuria. No vomiting or constipation. No weakness or loss of sensation. - Related Data Previous Rx's Medication Instructions Recorded predniSONE 50 mg PO DAILY #5 tab 03/18/21 Diazepam [Valium] 5 mg PO TID PRN 3 Days #9 tab 09/05/21 Naproxen [EC-Naprosyn] 500 mg PO BID PRN #30 tab 10/24/21 Allergies Allergy/AdvReac Type Severity Reaction Status Date / Time Iodinated Contrast Media AdvReac Nausea Verified 12/01/21 17:39 [Iodinated Contrast Media - Oral and] Review of Systems ROS Statement: Those systems with pertinent positive or pertinent negative responses have been documented in the HPI. ROS Other: All systems not noted in ROS Statement are negative. Constitutional: Denies: fever Eyes: Denies: eye pain ENT: Denies: ear pain Respiratory: Denies: cough Cardiovascular: Denies: chest pain Endocrine: Denies: fatigue Gastrointestinal: Denies: abdominal pain Genitourinary: Reports: as per HPI. Denies: dysuria Musculoskeletal: Reports: as per HPI Skin: Denies: rash Neurological: Denies: weakness Past Medical History Past Medical History: Asthma, GERD/Reflux, Hypertension, Osteoarthritis (OA) Additional Past Medical History / Comment(s): occ high BP-no rx, fx left shouDER History of Any Multi-Drug Resistant Organisms: None Reported Past Surgical History: Back Surgery, Hernia Repair, Orthopedic Surgery Additional Past Surgical History / Comment(s): 05/22/16 ORIF L shoulder. Other surgical hx: BACK fusion & neck fusion, carpal tunnel-rt Past Anesthesia/Blood Transfusion Reactions: Motion Sickness Past Psychological History: Depression Smoking Status: Current every day smoker Past Alcohol Use History: Daily, Heavy Past Drug Use History: None Reported - Past Family History Sister(s) Family Medical History: Cancer, Deep Vein Thrombosis (DVT) General Exam Limitations: no limitations General appearance: alert, in no apparent distress Head exam: Present: normocephalic Eye exam: Present: normal appearance Neck exam: Present: normal inspection Respiratory exam: Present: normal lung sounds bilaterally Cardiovascular Exam: Present: regular rate, normal rhythm Expanded Peripheral pulses: 2+: Posterior Tibialis (R), Posterior Tibialis (L) GI/Abdominal exam: Present: soft. Absent: distended, tenderness, guarding, rebound, rigid, pulsatile mass exam: Present: other (Right scrotal swelling with minimal tenderness on exam) Extremities exam: Present: normal inspection Back exam: Present: CVA tenderness (R) (Below the right CVA area). Absent: paraspinal tenderness, vertebral tenderness Neurological exam: Present: alert. Absent: motor sensory deficit Psychiatric exam: Present: normal affect, normal mood Skin exam: Present: normal color Course Vital Signs 12/01/21 17:37 Temperature 98 F Pulse Rate 84 Respiratory 20 Rate Blood Pressure 193/110 O2 Sat by Pulse 98 Oximetry Medical Decision Making - Medical Decision Making Patient reevaluated and resting comfortably in bed. Patient updated on results and need for follow-up. - Lab Data Result diagrams: 12/01/21 20:32 12/01/21 20:32 Lab Results 12/01/21 12/01/21 12/01/21 Range/Units 17:41 20:32 20:32 WBC 11.2 H (3.8-10.6) k/uL RBC 4.77 (4.30-5.90) m/uL Hgb 15.5 (13.0-17.5) gm/dL Hct 47.2 (39.0-53.0) % MCV 98.8 (80.0-100.0) fL MCH 32.5 (25.0-35.0) pg MCHC 32.9 (31.0-37.0) g/dL RDW 15.2 (11.5-15.5) % Plt Count 307 (150-450) k/uL MPV 7.6 Neutrophils % 61 % Lymphocytes % 30 % Monocytes % 5 % Eosinophils % 2 % Basophils % 0 % Neutrophils # 6.9 (1.3-7.7) k/uL Lymphocytes # 3.4 (1.0-4.8) k/uL Monocytes # 0.6 (0-1.0) k/uL Eosinophils # 0.2 (0-0.7) k/uL Basophils # 0.1 (0-0.2) k/uL Macrocytosis Slight PT (9.0-12.0) sec INR (<1.2) APTT (22.0-30.0) sec Sodium 137 (137-145) mmol/L Potassium 4.9 (3.5-5.1) mmol/L Chloride 104 (98-107) mmol/L Carbon Dioxide 26 (22-30) mmol/L Anion Gap 7 mmol/L BUN 9 (9-20) mg/dL Creatinine 0.64 L (0.66-1.25) mg/dL Est GFR (CKD-EPI)AfAm >90 (>60 ml/min/1.73 sqM) Est GFR (CKD-EPI)NonAf >90 (>60 ml/min/1.73 sqM) Glucose 84 (74-99) mg/dL Calcium 9.1 (8.4-10.2) mg/dL Total Bilirubin 1.6 H (0.2-1.3) mg/dL AST 68 H (17-59) U/L ALT 26 (4-49) U/L Alkaline Phosphatase 107 (38-126) U/L Total Protein 8.4 H (6.3-8.2) g/dL Albumin 4.4 (3.5-5.0) g/dL Amylase 51 (30-110) U/L Lipase 58 (23-300) U/L Urine Color Light Yellow Urine Appearance Clear (Clear) Urine pH 6.5 (5.0-8.0) Ur Specific [place] 1.011 (1.001-1.035) Urine Protein Negative (Negative) Urine Glucose (UA) Negative (Negative) Urine Ketones Negative (Negative) Urine Blood Trace H (Negative) Urine Nitrite Negative (Negative) Urine Bilirubin Negative (Negative) Urine Urobilinogen <2.0 (<2.0) mg/dL Ur Leukocyte Esterase Negative (Negative) Urine RBC 4 (0-5) /hpf Urine WBC 1 (0-5) /hpf Urine Mucus Rare H (None) /hpf 03/28/22 Range/Units 20:32 WBC (3.8-10.6) k/uL RBC (4.30-5.90) m/uL Hgb (13.0-17.5) gm/dL Hct (39.0-53.0) % MCV (80.0-100.0) fL MCH (25.0-35.0) pg MCHC (31.0-37.0) g/dL RDW (11.5-15.5) % Plt Count (150-450) k/uL MPV Neutrophils % % Lymphocytes % % Monocytes % % Eosinophils % % Basophils % % Neutrophils # (1.3-7.7) k/uL Lymphocytes # (1.0-4.8) k/uL Monocytes # (0-1.0) k/uL Eosinophils # (0-0.7) k/uL Basophils # (0-0.2) k/uL Macrocytosis PT 12.8 H (9.0-12.0) sec INR 1.2 H (<1.2) APTT 27.3 (22.0-30.0) sec Sodium (137-145) mmol/L Potassium (3.5-5.1) mmol/L Chloride (98-107) mmol/L Carbon Dioxide (22-30) mmol/L Anion Gap mmol/L BUN (9-20) mg/dL Creatinine (0.66-1.25) mg/dL Est GFR (CKD-EPI)AfAm (>60 ml/min/1.73 sqM) Est GFR (CKD-EPI)NonAf (>60 ml/min/1.73 sqM) Glucose (74-99) mg/dL Calcium (8.4-10.2) mg/dL Total Bilirubin (0.2-1.3) mg/dL AST (17-59) U/L ALT (4-49) U/L Alkaline Phosphatase (38-126) U/L Total Protein (6.3-8.2) g/dL Albumin (3.5-5.0) g/dL Amylase (30-110) U/L Lipase (23-300) U/L Urine Color Urine Appearance (Clear) Urine pH (5.0-8.0) Ur Specific [place] (1.001-1.035) Urine Protein (Negative) Urine Glucose (UA) (Negative) Urine Ketones (Negative) Urine Blood (Negative) Urine Nitrite (Negative) Urine Bilirubin (Negative) Urine Urobilinogen (<2.0) mg/dL Ur Leukocyte Esterase (Negative) Urine RBC (0-5) /hpf Urine WBC (0-5) /hpf Urine Mucus (None) /hpf - Radiology Data Radiology results: report reviewed (Ultrasound scrotum shows right epididymal cyst. Bilateral hydrocele. CT abdomen and pelvis shows no acute abnormality.) Disposition Clinical Impression: Back pain, Hydrocele Disposition: HOME SELF-CARE Condition: Stable Instructions (If sedation given, give patient instructions): Acute Low Back Pain (ED), Hydrocele (ED) Additional Instructions: Please do follow-up with primary care physician in the next day or 2 for recheck. Return for increased pain, weakness, loss of control of bowel or bladder, worsening or changing symptoms or other concerns. Is patient prescribed a controlled substance at d/c from ED?: No Referrals: Tres Hogan MD [STAFF PHYSICIAN] - 1-2 days Time of Disposition: 21:59
[2021-12-01 20:55] LABS: Basophils # (A) 0.1 k/uL (0-0.2); Basophils % (A) 0 %; Eosinophils # (A) 0.2 k/uL (0-0.7); Eosinophils % (A) 2 %; HCT 47.2 % (39.0-53.0); HGB 15.5 gm/dL (13.0-17.5); Lymphocytes # (A) 3.4 k/uL (1.0-4.8); Lymphocytes % (A) 30 %; MCH 32.5 pg (25.0-35.0); MCHC 32.9 g/dL (31.0-37.0); MCV 98.8 fL (80.0-100.0); Macrocytosis Slight; Mean Platelet Volume 7.6; Monocytes # (A) 0.6 k/uL (0-1.0); Monocytes % (A) 5 %; Neutrophils # (A) 6.9 k/uL (1.3-7.7); Neutrophils % (A) 61 %; Platelet Count 307 k/uL (150-450); RBC 4.77 m/uL (4.30-5.90); RDW 15.2 % (11.5-15.5); WBC 11.2 k/uL (3.8-10.6)
[2021-12-01 20:59] LABS: ALT 26 U/L (4-49); AST 68 U/L (17-59); African American GFR (CKD) >90 (>60 ml/min/1.73 sqM); Albumin 4.4 g/dL (3.5-5.0); Alkaline Phosphatase 107 U/L (38-126); Amylase 51 U/L (30-110); Anion Gap 7 mmol/L; Blood Urea Nitrogen 9 mg/dL (9-20); Calcium 9.1 mg/dL (8.4-10.2); Carbon Dioxide 26 mmol/L (22-30); Chloride 104 mmol/L (98-107); Glucose 84 mg/dL (74-99); Lipase 58 U/L (23-300); Non-African American GFR(CKD) >90 (>60 ml/min/1.73 sqM); Potassium 4.9 mmol/L (3.5-5.1); Sodium 137 mmol/L (137-145); Total Bilirubin 1.6 mg/dL (0.2-1.3); Total Protein 8.4 g/dL (6.3-8.2)
[2021-12-01 21:18] LABS: INR 1.2 (<1.2); Partial Thromboplastin Time 27.3 sec (22.0-30.0); Prothrombin Time 12.8 sec (9.0-12.0)
--- NOTE | 2021-12-01 21:29 | US ---
EXAMINATION TYPE: US scrotum with doppler. Grayscale and color Doppler Duplex imaging performed of georgette fuller scrotum. DATE OF EXAM: 12/01/2021 COMPARISON: NONE CLINICAL HISTORY: swelling. Swelling and right-sided testicular pain EXAM MEASUREMENTS: TESTICLES: Right Testicle: 3.8 x 2.6 x 2.6 cm Left Testicle: 3.6 x 2.2 x 2.5 cm EPIDIDYMIS HEAD: Right Epididymis: 0.9 x 1.0 x 1.2 cm; anechoic focus 0.5 x 0.4 x 0.4 cm Left Epididymis: 0.9 x 1.2 x 0.8 cm Doppler performed to assess for testicular vascularity; good bilateral color flow and waveforms are s een. There is no evidence of testicular torsion. Presence of hydroceles: Bilateral; larger on the right Presence of varicoceles: no IMPRESSION: Small right epididymal cyst. Bilateral hydroceles. No evidence of testicular torsion.
--- NOTE | 2021-12-01 21:51 | CT ---
EXAMINATION TYPE: CT abdomen pelvis w con DATE OF EXAM: 12/01/2021 COMPARISON: 01/20/2017 HISTORY: Right sided back pain. CT DLP: 1809 mGycm Automated exposure control for dose reduction was used. CONTRAST: Performed with IV Contrast, patient injected with 100 mL of Isovue 300. Lung bases are clear of consolidation. There is no pleural effusion. Heart appears slightly enlarged. There is mild interstitial density at the lung bases. Liver spleen and stomach pancreas and gallbladder appear intact. Bile ducts are nondilated. There is no adrenal mass. Kidneys show satisfactory contrast opacification. There is no hydronephrosi s. Ureters are not dilated. Delayed images show normal renal excretion. There is no retroperitoneal a denopathy. Bladder distends smoothly. There is no inguinal hernia. There is posterior multilevel fusi on surgery in the lumbar spine from L3 to S1. There is no compression fracture. There is minimal subl uxation at L2-3. Abdominal aorta is atheromatous. There is no mesenteric edema. No ascites or free air. No bowel obstruction appendix is posterior and appears normal. IMPRESSION: Normal appendix. No acute abnormality in the abdomen and pelvis. No adverse change compared to the ol d exam.
[2021-12-01] MEDS ORDERED: ACET/COD 300 MG/30 MG STARTER PACK 6 TAB BTL PO STA (22:00)
[2021-12-01 22:46] VITALS: BP 149/79; PULSE 99
== END 2021-12-01 22:46 | disposition home or self-care (01) ==
LOC: EC 17:30
DX: N43.3 Hydrocele, unspecified (principal); M54.50 Low back pain, unspecified; I10 Essential (primary) hypertension; J45.909 Unspecified asthma, uncomplicated; F32.A Depression, unspecified; F17.200 Nicotine dependence, unspecified, uncomplicated; Z79.52 Long term (current) use of systemic steroids; Z79.899 Other long term (current) drug therapy
CPT/HCPCS: 99284; 96374; 96375 ×3; 36415; 80053; 82150; 83690; 85025; 85610; 85730; 81001; 93975; 76870; 74177; J1200; J2930; J1170; Q9967

== ENCOUNTER 2021-12-06 02:17 | Emergency (ER) | payer OTHER ==
--- NOTE | 2021-12-06 02:43 | ED ---
Fall HPI - General Stated Complaint: Fall Time Seen by Provider: 12/06/21 02:19 Source: patient, EMS Mode of arrival: EMS - History of Present Illness Initial Comments: This is a pleasant 61-year-old male who presents to the emergency department after being found on his porch. Patient admittedly drank a pint of alcohol. Patient states for the past several days he has been drinking more alcohol than usual because he is having right testicular pain. Patient was seen here and was sent to urology. Patient states she has an appointment for about 2 weeks out. Patient actually denying any pain at this point other than his chronic low back pain. Patient states he did not fall but felt like his legs gave out on him. Patient usually uses a motorized scooter and states he's had bilateral leg weakness for about 5 or 6 years. He states today it was worse than usual. He denies any injury. He denies any head or neck injury. Patient on blood thinners. No chest pain or shortness of breath. No fever or chills. No nausea or vomiting. No changes in bowel movements or urination. Denies skin rashes or lesions. MD Complaint: fall - Related Data Home Medications Medication Instructions Recorded Confirmed No Known Home Medications 12/01/21 12/01/21 Allergies Allergy/AdvReac Type Severity Reaction Status Date / Time Iodinated Contrast Media AdvReac Nausea Verified 12/01/21 22:03 [Iodinated Contrast Media - Oral and] Review of Systems ROS Statement: Those systems with pertinent positive or pertinent negative responses have been documented in the HPI. ROS Other: All systems not noted in ROS Statement are negative. Past Medical History Past Medical History: Asthma, GERD/Reflux, Hypertension, Osteoarthritis (OA) Additional Past Medical History / Comment(s): occ high BP-no rx, fx left shouDER History of Any Multi-Drug Resistant Organisms: None Reported Past Surgical History: Back Surgery, Hernia Repair, Orthopedic Surgery Additional Past Surgical History / Comment(s): 05/22/16 ORIF L shoulder. Other surgical hx: BACK fusion & neck fusion, carpal tunnel-rt Past Anesthesia/Blood Transfusion Reactions: Motion Sickness Past Psychological History: Depression Smoking Status: Current every day smoker Past Alcohol Use History: Daily, Heavy Past Drug Use History: None Reported - Past Family History Sister(s) Family Medical History: Cancer, Deep Vein Thrombosis (DVT) General Exam - General Exam Comments Initial Comments: Intoxicated 61-year-old male in mild distress. Patient does not appear to be ill or toxic. Does appear to be mildly intoxicated but is able to give an adequate history. Patient alert and oriented 4. Cranial nerves II through XII are intact. Limitations: no limitations General appearance: alert, in no apparent distress Head exam: Present: atraumatic, normocephalic, normal inspection Eye exam: Present: normal appearance, PERRL, EOMI. Absent: scleral icterus, conjunctival injection, periorbital swelling ENT exam: Present: normal exam, normal oropharynx, mucous membranes dry, mucous membranes moist, TM's normal bilaterally, normal external ear exam Neck exam: Present: normal inspection, full ROM. Absent: tenderness, meningismus, lymphadenopathy Respiratory exam: Present: normal lung sounds bilaterally. Absent: respiratory distress, wheezes, rales, rhonchi, stridor Cardiovascular Exam: Present: regular rate, normal rhythm, normal heart sounds. Absent: systolic murmur, diastolic murmur, rubs, gallop, clicks GI/Abdominal exam: Present: soft, normal bowel sounds. Absent: distended, tenderness, guarding, rebound, rigid Rectal exam: Present: normal inspection, normal rectal tone. Absent: decreased rectal tone, black stool, bloody stool, fecal impaction, hemorrhoids, mass, tenderness, prostate tenderness exam: Present: scrotal swelling (Patient has diffuse edema, especially the right scrotum consistent with a hydrocele. No tenderness. Cremasteric reflex intact), circumcision. Absent: testicular tenderness Extremities exam: Present: normal inspection, full ROM, normal capillary refill, other (Patient essentially has full range motion. However muscle strength in both lower extremities with the card hip flexion is about 4+ out of 5. This is been chronic but worse today.). Absent: tenderness, pedal edema, joint swelling, calf tenderness Back exam: Present: normal inspection, paraspinal tenderness (Mild lumbar paraspinal tenderness. No erythema. No break in skin integrity.), other. Absent: tenderness, muscle spasm, vertebral tenderness, rash noted Neurological exam: Present: alert, oriented X3, CN II-XII intact. Absent: altered Psychiatric exam: Present: normal affect, normal mood Skin exam: Present: warm, dry, intact, normal color. Absent: rash, cyanosis, diaphoretic, erythema, urticaria, vesicles, petechiae, abrasion, other Course Vital Signs 12/06/21 02:18 Temperature 98.3 F Pulse Rate 93 Respiratory 18 Rate Blood Pressure 145/95 O2 Sat by Pulse 98 Oximetry Medical Decision Making - Lab Data Result diagrams: 12/06/21 02:45 12/06/21 02:45 Lab Results 12/06/21 12/06/21 12/06/21 Range/Units 02:45 02:45 02:45 WBC 10.9 H (3.8-10.6) k/uL RBC 4.92 (4.30-5.90) m/uL Hgb 16.1 (13.0-17.5) gm/dL Hct 48.7 (39.0-53.0) % MCV 99.0 (80.0-100.0) fL MCH 32.7 (25.0-35.0) pg MCHC 33.0 (31.0-37.0) g/dL RDW 15.4 (11.5-15.5) % Plt Count 269 (150-450) k/uL MPV 7.3 Neutrophils % 47 % Lymphocytes % 41 % Monocytes % 6 % Eosinophils % 4 % Basophils % 1 % Neutrophils # 5.0 (1.3-7.7) k/uL Lymphocytes # 4.4 (1.0-4.8) k/uL Monocytes # 0.6 (0-1.0) k/uL Eosinophils # 0.4 (0-0.7) k/uL Basophils # 0.1 (0-0.2) k/uL Macrocytosis Slight Sodium 140 (137-145) mmol/L Potassium 4.8 (3.5-5.1) mmol/L Chloride 105 (98-107) mmol/L Carbon Dioxide 19 L (22-30) mmol/L Anion Gap 16 mmol/L BUN 13 (9-20) mg/dL Creatinine 1.17 (0.66-1.25) mg/dL Est GFR (CKD-EPI)AfAm 77 (>60 ml/min/1.73 sqM) Est GFR (CKD-EPI)NonAf 66 (>60 ml/min/1.73 sqM) Glucose 87 (74-99) mg/dL Calcium 9.4 (8.4-10.2) mg/dL Magnesium 2.1 (1.6-2.3) mg/dL Total Bilirubin 1.1 (0.2-1.3) mg/dL AST 58 (17-59) U/L ALT 30 (4-49) U/L Alkaline Phosphatase 97 (38-126) U/L Creatine Kinase 194 H (55-170) U/L Total Protein 8.2 (6.3-8.2) g/dL Albumin 4.5 (3.5-5.0) g/dL Coronavirus (PCR) Not Detected (Not Detectd) Disposition Clinical Impression: Alcohol intoxication, Chronic low back pain, Fall Instructions (If sedation given, give patient instructions): Fall Prevention for Older Adults (ED), Abuse of Alcohol (ED), Chronic Back Pain (DC) Referrals: Ben Nova [STAFF PHYSICIAN] - 1-2 days
[2021-12-06] MEDS ORDERED: SODIUM CHLORIDE 0.9% 1,000 ML with MVI, ADULT NO.4 WITH VIT K 10 ML, THIAMINE 100 MG, F... IV ONE ×4 (03:00)
[2021-12-06 03:04] LABS: Basophils # (A) 0.1 k/uL (0-0.2); Basophils % (A) 1 %; Eosinophils # (A) 0.4 k/uL (0-0.7); Eosinophils % (A) 4 %; HCT 48.7 % (39.0-53.0); HGB 16.1 gm/dL (13.0-17.5); Lymphocytes # (A) 4.4 k/uL (1.0-4.8); Lymphocytes % (A) 41 %; MCH 32.7 pg (25.0-35.0); Macrocytosis Slight; Mean Platelet Volume 7.3; Monocytes # (A) 0.6 k/uL (0-1.0); Monocytes % (A) 6 %; Neutrophils % (A) 47 %; Platelet Count 269 k/uL (150-450); RBC 4.92 m/uL (4.30-5.90); RDW 15.4 % (11.5-15.5); WBC 10.9 k/uL (3.8-10.6)
--- NOTE | 2021-12-06 03:27 | CT ---
EXAMINATION TYPE: CT brain elifine wo con DATE OF EXAM: 12/06/2021 COMPARISON: None HISTORY: fall, etoh CT DLP: 1453.5 mGycm Automated exposure control for dose reduction was used. Images of the brain and cervical spine obtained without contrast. Ventricles and sulci appear normal. There is no mass effect nor midline shift. There is no sign of in tracranial hemorrhage. Calvarium is intact. Mastoid sinuses appear normal. There is mucosal mild thickening in the maxillary sinuses. Cervical vertebra have normal alignment. There is multilevel anterior fusion surgery from C3 to C7. T here is posterior fusion surgery also. There is no evidence of compression fracture. There is some C7 -T1 disc space narrowing and mild spurring. IMPRESSION: Multilevel cervical spine surgery. No fracture. No acute intracranial abnormality.
--- NOTE | 2021-12-06 03:28 | XR ---
EXAMINATION TYPE: XR chest 1V DATE OF EXAM: 12/06/2021 COMPARISON: 10/10/2019 HISTORY: Fall. Pain. TECHNIQUE: Single view FINDINGS: There is no heart failure nor confluent pneumonic infiltrate. Thoracic aorta is intact. The re is no pleural effusion. There are no hilar masses. Costophrenic angles are clear. IMPRESSION: No active cardiopulmonary disease. No change
--- NOTE | 2021-12-06 03:29 | XR ---
EXAMINATION TYPE: XR pelvis AP view DATE OF EXAM: 12/06/2021 COMPARISON: NONE HISTORY: Fall. Pain TECHNIQUE: Single view FINDINGS: Pelvic ring is intact. Proximal femurs and hip joints are intact. Sacroiliac joints are int act IMPRESSION: Negative pelvis x-ray exam
[2021-12-06 03:30] LABS: Calcium 9.4 mg/dL (8.4-10.2); Total Bilirubin 1.1 mg/dL (0.2-1.3)
[2021-12-06 03:58] LABS: Magnesium 2.1 mg/dL (1.6-2.3); Potassium 4.8 mmol/L (3.5-5.1)
[2021-12-06 03:59] LABS: Albumin 4.5 g/dL (3.5-5.0); Total Protein 8.2 g/dL (6.3-8.2)
[2021-12-06] MEDS ORDERED: ACETAMINOPHEN TAB 500 MG TAB PO STA (04:07)
[2021-12-06] MEDS: MAGNESIUM SULFATE-D5W PMX 1 GM in DEXTROSE/WATER 1 100ML.BAG IVPB SCH ×2 (04:19→05:25)
[2021-12-06 09:26] VITALS: BP 136/86; PULSE 89; RESP 20; TEMP 98.2
== END 2021-12-06 09:20 ==
LOC: EC 02:17
DX: F10.129 Alcohol abuse with intoxication, unspecified (principal); G89.29 Other chronic pain; M54.50 Low back pain, unspecified; I10 Essential (primary) hypertension; F17.200 Nicotine dependence, unspecified, uncomplicated; Z20.822 Contact with and (suspected) exposure to COVID-19; Y90.9 Presence of alcohol in blood, level not specified; W19.XXXA Unspecified fall, initial encounter
CPT/HCPCS: 36415; 80053; 82550; 83735; 85025; 87635; 72170; 71045; 72125; 70450; 99284; 96365; 96366 ×3; 96368; J3411; J3475

== ENCOUNTER 2022-02-05 21:27 | Emergency (ER) | payer OTHER ==
[2022-02-05 21:34] VITALS: RESP 18
[2022-02-05] MEDS ORDERED: HYDROcodone/APAP 5-325MG 1 EACH TAB PO STA (22:49)
[2022-02-05] MEDS ORDERED: IBUPROFEN 800 MG TAB PO STA (22:49)
--- NOTE | 2022-02-05 23:07 | CT ---
EXAMINATION TYPE: CT brain wo con DATE OF EXAM: 02/05/2022 COMPARISON: 12/06/2021 HISTORY: fall CT DLP: 1133.4 mGycm Automated exposure control for dose reduction was used. Ventricles have normal size. There is no mass effect or midline shift. No sign of intracranial hemorr brenden. Calvarium is intact. Skull base is intact. There is normal aeration of the mastoid sinuses. IMPRESSION: Negative unenhanced head CT scan. No change.
--- NOTE | 2022-02-05 23:19 | XR ---
EXAMINATION TYPE: XR hand complete RT DATE OF EXAM: 02/05/2022 COMPARISON: NONE HISTORY: Fall. Pain TECHNIQUE: 3 views FINDINGS: The metacarpals are intact. Carpal bones are intact. There is a 3 mm nondisplaced chip frac ture of the anterior base of the middle phalanx of the little finger right hand. No dislocation. IMPRESSION: Small nondisplaced chip fracture of the little finger as above.
--- NOTE | 2022-02-06 00:37 | ED ---
Fall HPI - General Chief Complaint: Fall Stated Complaint: ETOH, Fall, Head Injury, Pinky Injury Time Seen by Provider: 02/05/22 21:32 Source: patient, EMS Mode of arrival: EMS - History of Present Illness Initial Comments: This patient is a 62-year-old man who presents after having had a fall tonight. Patient states she had been drinking, lost balance and fell. He did injure the fifth digit of his hand, and states that it appeared to have a deformity prior to EMS arrival. He states that he pulled the finger and it seemed to go back into position. Patient complains of some mild headache. He denies neck pain, chest, back, abdomen or other injuries. MD Complaint: fall -: minutes(s) Fall From: standing When Fall Occurred: just prior to arrival Place Fall Occurred: street Loss of Consciousness: none Prolonged Down Time?: no Symptoms Prior to Fall: none Location: head Location - Extremities: Right: Hand Severity: mild Quality: aching Context: tripped/slipped, alcohol use Associated Symptoms: denies - Related Data Home Medications Medication Instructions Recorded Confirmed No Known Home Medications 12/01/21 02/05/22 Allergies Allergy/AdvReac Type Severity Reaction Status Date / Time Iodinated Contrast Media AdvReac Nausea Verified 02/05/22 22:46 [Iodinated Contrast Media - Oral and] Review of Systems ROS Statement: Those systems with pertinent positive or pertinent negative responses have been documented in the HPI. ROS Other: All systems not noted in ROS Statement are negative. Constitutional: Denies: weakness Eyes: Denies: vision change ENT: Denies: epistaxis Respiratory: Denies: cough, dyspnea Cardiovascular: Denies: chest pain, syncope Gastrointestinal: Denies: abdominal pain, vomiting Musculoskeletal: Reports: arthralgia (Right fifth digit). Denies: back pain Skin: Denies: rash Neurological: Denies: headache, weakness, numbness Past Medical History Past Medical History: Asthma, GERD/Reflux, Hypertension, Osteoarthritis (OA) Additional Past Medical History / Comment(s): occ high BP-no rx, fx left shouDER History of Any Multi-Drug Resistant Organisms: None Reported Past Surgical History: Back Surgery, Hernia Repair, Orthopedic Surgery Additional Past Surgical History / Comment(s): 05/22/16 ORIF L shoulder. Other surgical hx: BACK fusion & neck fusion, carpal tunnel-rt Past Anesthesia/Blood Transfusion Reactions: Motion Sickness Past Psychological History: Depression Smoking Status: Current every day smoker Past Alcohol Use History: Daily, Heavy Past Drug Use History: None Reported - Past Family History Sister(s) Family Medical History: Cancer, Deep Vein Thrombosis (DVT) General Exam Limitations: no limitations General appearance: alert, appears intoxicated Head exam: Present: atraumatic, normocephalic Eye exam: Present: normal appearance. Absent: scleral icterus, conjunctival injection Neck exam: Present: normal inspection, full ROM. Absent: tenderness Respiratory exam: Present: normal lung sounds bilaterally. Absent: respiratory distress, wheezes, rales, rhonchi, stridor, chest wall tenderness Cardiovascular Exam: Present: regular rate, normal rhythm, normal heart sounds. Absent: systolic murmur, diastolic murmur, rubs, gallop GI/Abdominal exam: Present: soft, organomegaly (Mild hepatomegaly). Absent: distended, tenderness, guarding, rebound, rigid, mass, pulsatile mass, hernia exam: Present: vertical testicular lie, other (There is slightly increased right testicular side versus contralateral, c/w previous exam. No tenderness.). Absent: testicular tenderness, urethral discharge, circumcision External exam: Present: normal external exam Extremities exam: Present: normal inspection, normal capillary refill. Absent: pedal edema, calf tenderness Back exam: Present: normal inspection. Absent: CVA tenderness (R), CVA tenderness (L) Neurological exam: Present: alert Skin exam: Present: warm, dry, intact, normal color. Absent: rash Course Vital Signs 02/05/22 02/06/22 21:29 01:59 Temperature 97.7 F 97.5 F L Pulse Rate 91 77 Respiratory 18 18 Rate Blood Pressure 157/100 126/91 O2 Sat by Pulse 99 94 L Oximetry Disposition Clinical Impression: Fall, Finger dislocation Disposition: HOME SELF-CARE Condition: Good Instructions (If sedation given, give patient instructions): Hydrocele (ED), Fall Prevention (ED), Finger Dislocation (ED) Is patient prescribed a controlled substance at d/c from ED?: No Referrals: None,Stated [Primary Care Provider] - 1-2 days Suraj West DO [Doctor of Osteopathic Medicine] - 1-2 days Victor Hugo Reynoso MD [STAFF PHYSICIAN] - 1-2 days
[2022-02-06 02:00] VITALS: BP 126/91; PULSE 77; TEMP 97.5
== END 2022-02-06 02:00 | disposition home or self-care (01) ==
LOC: EC 21:27
DX: S63.256A Unspecified dislocation of right little finger, initial encounter (principal); S09.90XA Unspecified injury of head, initial encounter; J45.909 Unspecified asthma, uncomplicated; I10 Essential (primary) hypertension; F17.200 Nicotine dependence, unspecified, uncomplicated; Z91.041 Radiographic dye allergy status; W01.0XXA Fall on same level from slipping, tripping and stumbling without subsequent striking against object, initial encounter; Y92.410 Unspecified street and highway as the place of occurrence of the external cause
CPT/HCPCS: 70450; 99284

== ENCOUNTER 2022-02-22 08:01 | Emergency (ER) | payer OTHER ==
[2022-02-22] MEDS ORDERED: KETOROLAC 15 MG/ML 1 ML VIAL IM STA (08:36)
--- NOTE | 2022-02-22 08:36 | ED ---
General Adult HPI - General Chief complaint: Extremity Injury, Upper Stated complaint: Fall, R shoulder pain Time Seen by Provider: 02/22/22 08:15 Source: patient, RN notes reviewed, old records reviewed Mode of arrival: wheelchair Limitations: no limitations - History of Present Illness Initial comments: This is a 62-year-old male who presents to the emergency department stating that he was drinking last night and fell. Patient states he hurt his right shoulder. Patient states it hurts in the anterior aspect of the shoulder. Patient denies any other injury. Patient denies hitting his head or neck. Patient denies any chest pain or back pain. Patient denies any extremity pain other than his shoulder. - Related Data Home Medications Medication Instructions Recorded Confirmed No Known Home Medications 12/01/21 02/05/22 Allergies Allergy/AdvReac Type Severity Reaction Status Date / Time Iodinated Contrast Media AdvReac Nausea Verified 02/22/22 08:16 [Iodinated Contrast Media - Oral and] Review of Systems ROS Statement: Those systems with pertinent positive or pertinent negative responses have been documented in the HPI. ROS Other: All systems not noted in ROS Statement are negative. Past Medical History Past Medical History: Asthma, GERD/Reflux, Hypertension, Osteoarthritis (OA) Additional Past Medical History / Comment(s): occ high BP-no rx, fx left shouDER History of Any Multi-Drug Resistant Organisms: None Reported Past Surgical History: Back Surgery, Hernia Repair, Orthopedic Surgery Additional Past Surgical History / Comment(s): 05/22/16 ORIF L shoulder. Other surgical hx: BACK fusion & neck fusion, carpal tunnel-rt Past Anesthesia/Blood Transfusion Reactions: Motion Sickness Past Psychological History: Depression Smoking Status: Current every day smoker Past Alcohol Use History: Daily, Heavy Past Drug Use History: None Reported - Past Family History Sister(s) Family Medical History: Cancer, Deep Vein Thrombosis (DVT) General Exam - General Exam Comments Initial Comments: GENERAL Patient is well-developed and well-nourished. Patient is in mild distress. EYES Patient's pupils are equal and round. Extraocular motion is intact SKIN Unremarkable NEURO The patient is alert and oriented 3 PYSCH Patient has normal interpersonal interactions. MUSCULOSKELETAL Slight tenderness in the anterior aspect of the shoulder on palpation Limitations: no limitations Course Vital Signs 02/22/22 08:14 Temperature 98.2 F Pulse Rate 95 Respiratory 20 Rate Blood Pressure 142/94 O2 Sat by Pulse 98 Oximetry Medical Decision Making - Medical Decision Making Patient has a fractured proximal humerus third tooth fragments one is intra- articular. Patient received Toradol and Dilaudid emergency department patient will be sent home in a sling. Disposition Clinical Impression: Fracture of humerus Disposition: HOME SELF-CARE Condition: Good Instructions (If sedation given, give patient instructions): Arm Fracture in Adults (ED) Is patient prescribed a controlled substance at d/c from ED?: No Referrals: None,Stated [Primary Care Provider] - 1-2 days Emilio Escobar DO [Doctor of Osteopathic Medicine] - 1-2 days Time of Disposition: 09:43
--- NOTE | 2022-02-22 09:19 | XR ---
EXAMINATION TYPE: XR shoulder complete RT DATE OF EXAM: 02/22/2022 9:05 AM INDICATION: Patient age:Male; 62 years old; Reason for study: Fall; COMPARISON: None TECHNIQUE: The right shoulder was examined in AP, internally rotated and scapular Y projections. . FINDINGS: There at least 2 fracture fragments involving the proximal right humerus with suspected intra-articul ar extension of at least one fragment. There is mild degeneration changes of the acromioclavicular bill int and mild osteophyte formation of the inferior glenoid. Partially visualized fixation hardware in the spine. IMPRESSION: Acute fracture through the proximal humerus with 2 fragments with at least one with intra-articular e xtension.
[2022-02-22] MEDS ORDERED: HYDROmorphone 0.5 MG/0.5 ML SYRINGE IM STA (09:40)
[2022-02-22 10:11] VITALS: BP 152/94; PULSE 87; RESP 18; TEMP 97.3
== END 2022-02-22 10:13 | disposition home or self-care (01) ==
LOC: EC 08:01
DX: S42.201A Unspecified fracture of upper end of right humerus, initial encounter for closed fracture (principal); F17.200 Nicotine dependence, unspecified, uncomplicated; J45.909 Unspecified asthma, uncomplicated; I10 Essential (primary) hypertension; Z91.041 Radiographic dye allergy status; W19.XXXA Unspecified fall, initial encounter
CPT/HCPCS: 73030; 99283; 96372; J1885; J1170

== ENCOUNTER 2022-03-11 20:20 | Emergency (ER) | payer OTHER ==
[2022-03-11 21:04] VITALS: RESP 18; TEMP 97.8
[2022-03-11] MEDS ORDERED: HYDROmorphone 1 MG/ML 1 ML SYRINGE IM STA (22:57)
[2022-03-11] MEDS ORDERED: ONDANSETRON ODT 4 MG TAB PO STA (22:57)
--- NOTE | 2022-03-11 23:48 | ED ---
General Adult HPI - General Chief complaint: Extremity Problem,Nontraumatic Stated complaint: Broken Shoulder,Pain Time Seen by Provider: 03/11/22 22:24 Source: patient, RN notes reviewed Mode of arrival: wheelchair Limitations: no limitations - History of Present Illness Initial comments: This is a 62-year-old male who presents to the emergency department for treatment of right shoulder pain. Patient states he was scheduled for surgery on the fifth, however missed the appointment due to his insurance complication. States he ran out of his [employer] [place] earlier this week. Denies any fever, chills, chest pain, numbness or tingling in the affected extremity, new injury, or trauma. - Related Data Home Medications Medication Instructions Recorded Confirmed HYDROcodone/APAP 7.5-325MG [[place] 1 tab PO Q6HR PRN 03/11/22 03/11/22 7.5-325] Previous Rx's Medication Instructions Recorded HYDROcodone/APAP 5-325MG [[place] 5] 1 each PO Q6HR PRN #12 tab 03/12/22 Allergies Allergy/AdvReac Type Severity Reaction Status Date / Time Iodinated Contrast Media AdvReac Nausea Verified 03/11/22 23:06 [Iodinated Contrast Media - Oral and] Review of Systems ROS Statement: Those systems with pertinent positive or pertinent negative responses have been documented in the HPI. ROS Other: All systems not noted in ROS Statement are negative. Past Medical History Past Medical History: Asthma, GERD/Reflux, Hypertension, Osteoarthritis (OA) Additional Past Medical History / Comment(s): occ high BP-no rx, fx left shouDER History of Any Multi-Drug Resistant Organisms: None Reported Past Surgical History: Back Surgery, Hernia Repair, Orthopedic Surgery Additional Past Surgical History / Comment(s): 05/22/16 ORIF L shoulder. Other surgical hx: BACK fusion & neck fusion, carpal tunnel-rt Past Anesthesia/Blood Transfusion Reactions: Motion Sickness Past Psychological History: Depression Smoking Status: Current every day smoker Past Alcohol Use History: Daily, Heavy Past Drug Use History: None Reported - Past Family History Sister(s) Family Medical History: Cancer, Deep Vein Thrombosis (DVT) General Exam Limitations: no limitations, physical limitation (Mobility limitations baseline for patient. He does use an electric wheelchair.) General appearance: alert, in no apparent distress (Well-developed, well- nourished male in no acute distress. Initial temperature 97.8, pulse 88, resp irations 18, blood pressure 132/73, pulse ox 100% on room air.) Head exam: Present: atraumatic, normocephalic, normal inspection Neck exam: Present: normal inspection. Absent: tenderness Respiratory exam: Present: normal lung sounds bilaterally. Absent: respiratory distress, wheezes, rales, rhonchi, stridor Cardiovascular Exam: Present: regular rate, normal rhythm, normal heart sounds. Absent: systolic murmur, diastolic murmur, rubs, gallop, clicks GI/Abdominal exam: Present: soft, normal bowel sounds. Absent: distended, tenderness, guarding, rebound, rigid Right Shoulder Exam: Present: normal inspection, tenderness, other (Decreased range of motion baseline for patient. Tenderness upon palpation of the anterior aspect of the shoulder.). Absent: full ROM Upper Arm exam: Present: ecchymosis (echymosis present distal posterior aspect right upper arm) Elbow exam: Present: normal inspection, full ROM. Absent: tenderness, swelling Forearm Wrist exam: Present: normal inspection Hand Wrist exam: Present: normal inspection Vascular: Present: normal capillary refill, radial pulse. Absent: vascular compromise, Pallo Neurological exam: Present: alert, oriented X3 Psychiatric exam: Present: normal affect, normal mood Skin exam: Present: warm, dry, intact, normal color. Absent: rash Course Vital Signs 03/11/22 03/12/22 21:01 00:57 Temperature 97.8 F Pulse Rate 88 75 Respiratory 18 Rate Blood Pressure 132/73 127/70 O2 Sat by Pulse 100 99 Oximetry Medical Decision Making - Medical Decision Making 62-year-old male with a past medical history of chronic neck and back pain, hypertension, and osteoarthritis presents to the emergency department for treatment of right shoulder pain. Was suppose to have shoulder surgery on the but was unable to due to an insuranc issue. Also ran out of his [employer] [place] two days ago. Upon exam, patient is struggling to find a position of comfort, but denies any new injury or trauma. He has decreased ROM to the RUE; distal sensation and vascular status intact. He was given IM pain medication with improvement. Gave him a prescription for a limited quantity of [employer] [place] and instructed him to follow up with his surgeon as soon as possible. Return parameters discussed in detail. Patient verbalizes understanding and agrees with this plan. Attending: Abrahan. Disposition Clinical Impression: Chronic right shoulder pain Disposition: HOME SELF-CARE Condition: Stable Instructions (If sedation given, give patient instructions): Shoulder Pain (ED) Additional Instructions: You need to call your orthopedist in the morning to schedule a follow up appointment. Take your [employer] [place] if needed for severe pain. Return to the emergency department with any new, worsening, or concerning symptoms. Prescriptions: HYDROcodone/APAP 5-325MG [[employer] [place] 5] 1 each PO Q6HR PRN #12 tab PRN Reason: Pain Is patient prescribed a controlled substance at d/c from ED?: Yes When asked, does pt state using other controlled substances?: No If prescribed controlled substance>3 days was MAPS reviewed?: Prescribed <3 Days If opioid is for acute pain is fill amount 7 days or less?: Yes If Rx opioid, was Start Talking consent form obtained?: Yes Referrals: None,Stated [Primary Care Provider] - 1-2 days Time of Disposition: 23:47
[2022-03-12 00:58] VITALS: BP 127/70; PULSE 75
== END 2022-03-12 00:58 | disposition home or self-care (01) ==
LOC: EC 20:20
DX: M25.511 Pain in right shoulder (principal); I10 Essential (primary) hypertension; J45.909 Unspecified asthma, uncomplicated; K21.9 Gastro-esophageal reflux disease without esophagitis; M19.90 Unspecified osteoarthritis, unspecified site; F32.A Depression, unspecified; F17.200 Nicotine dependence, unspecified, uncomplicated; Z91.041 Radiographic dye allergy status; Z79.891 Long term (current) use of opiate analgesic
CPT/HCPCS: 99283; 96372; J1170

== ENCOUNTER 2022-03-22 23:50 | Emergency (ER) | payer OTHER ==
[2022-03-23 00:03] VITALS: BP 122/82; PULSE 92; RESP 20; TEMP 97.7
--- NOTE | 2022-03-23 00:29 | XR ---
EXAMINATION TYPE: XR shoulder complete RT DATE OF EXAM: 03/23/2022 COMPARISON: 02/22/2022 HISTORY: Pain TECHNIQUE: 3 views FINDINGS: There is calcification at the greater tuberosity of the humerus consistent with severe calc ific tendinitis. No acute fracture nor dislocation. The glenohumeral joint is anatomic. AC joint is i ntact. IMPRESSION: Severe calcific tendinitis similar to recent exam. The calcification is in a more superio r position than previous exam and could relate to avulsion of the supraspinatus tendon.
--- NOTE | 2022-03-23 03:22 | ED ---
Recheck HPI - General Chief Complaint: Extremity Injury, Upper Stated Complaint: Right Shoulder Injury Time Seen by Provider: 03/23/22 02:57 Source: patient Mode of arrival: wheelchair Limitations: physical limitation - Related Data Home Medications Medication Instructions Recorded Confirmed HYDROcodone/APAP 7.5-325MG [[place] 1 tab PO Q6HR PRN 03/11/22 03/11/22 7.5-325] Previous Rx's Medication Instructions Recorded HYDROcodone/APAP 5-325MG [[place] 5] 1 each PO Q6HR PRN #12 tab 03/12/22 Allergies Allergy/AdvReac Type Severity Reaction Status Date / Time Iodinated Contrast Media AdvReac Nausea Verified 03/23/22 00:03 [Iodinated Contrast Media - Oral and] Review of Systems ROS Statement: Those systems with pertinent positive or pertinent negative responses have been documented in the HPI. ROS Other: All systems not noted in ROS Statement are negative. Past Medical History Past Medical History: Asthma, GERD/Reflux, Hypertension, Osteoarthritis (OA) Additional Past Medical History / Comment(s): occ high BP-no rx, fx left shouDER History of Any Multi-Drug Resistant Organisms: None Reported Past Surgical History: Back Surgery, Hernia Repair, Orthopedic Surgery Additional Past Surgical History / Comment(s): 05/22/16 ORIF L shoulder. Other surgical hx: BACK fusion & neck fusion, carpal tunnel-rt Past Anesthesia/Blood Transfusion Reactions: Motion Sickness Past Psychological History: No Psychological Hx Reported, Depression Smoking Status: Current every day smoker Past Alcohol Use History: Daily, Heavy Past Drug Use History: None Reported - Past Family History Sister(s) Family Medical History: Cancer, Deep Vein Thrombosis (DVT) General Exam Limitations: physical limitation Course Vital Signs 03/22/22 23:55 Temperature 97.7 F Pulse Rate 92 Respiratory 20 Rate Blood Pressure 122/82 O2 Sat by Pulse 98 Oximetry Disposition Clinical Impression: Chronic right shoulder pain, Strain of shoulder, Right shoulder pain Disposition: HOME SELF-CARE Condition: Good Instructions (If sedation given, give patient instructions): Shoulder Sprain (ED), Shoulder Pain (ED) Is patient prescribed a controlled substance at d/c from ED?: No Referrals: Luis Mccord MD [STAFF PHYSICIAN] - 1-2 days
[2022-03-23] MEDS ORDERED: HYDROmorphone 1 MG/ML 1 ML SYRINGE IM STA (03:32)
[2022-03-23] MEDS ORDERED: IBUPROFEN 600 MG STARTER PACK 4 TAB BTL PO STA (03:32)
[2022-03-23] MEDS ORDERED: ACET/COD 300 MG/30 MG STARTER PACK 6 TAB BTL PO STA (03:32)
== END 2022-03-23 04:17 | disposition home or self-care (01) ==
LOC: EC 23:50
DX: S46.911A Strain of unspecified muscle, fascia and tendon at shoulder and upper arm level, right arm, initial encounter (principal); J45.909 Unspecified asthma, uncomplicated; I10 Essential (primary) hypertension; F17.200 Nicotine dependence, unspecified, uncomplicated; Z91.041 Radiographic dye allergy status; X58.XXXA Exposure to other specified factors, initial encounter
CPT/HCPCS: 73030; 99283; 96372; J1170

== ENCOUNTER 2022-03-25 00:34 | Emergency (ER) | payer OTHER ==
[2022-03-25 00:43] VITALS: BP 115/74; PULSE 93; RESP 16; TEMP 98.3
[2022-03-25] MEDS ORDERED: IBUPROFEN 600 MG STARTER PACK 4 TAB BTL PO STA (01:01)
[2022-03-25] MEDS ORDERED: ACET/COD 300 MG/30 MG STARTER PACK 6 TAB BTL PO STA (01:01)
[2022-03-25] MEDS ORDERED: HYDROmorphone 0.5 MG/0.5 ML SYRINGE IM STA (01:03)
--- NOTE | 2022-03-25 01:06 | ED ---
Upper Extremity HPI - General Chief Complaint: Extremity Injury, Upper Stated Complaint: right shoulder pain, revisit Time Seen by Provider: 03/25/22 00:46 Source: patient Mode of arrival: ambulatory Limitations: no limitations - History of Present Illness Initial Comments: Patient is a 62-year-old male presenting with chief complaint of right shoulder pain. Patient was seen here on 02/20 for the same complaint, he was given pain medication and instructed to follow-up with his orthopedist Dr. Mccord. Patient states that he was unable to get into Dr. Mccord and has an upcoming appointment, however he is out of pain medication. He denies any numbness, tingling, weakness, loss of range of motion, redness, swelling, fever, chills, nausea, vomiting. - Related Data Home Medications Medication Instructions Recorded Confirmed HYDROcodone/APAP 7.5-325MG [[place] 1 tab PO Q6HR PRN 03/11/22 03/11/22 7.5-325] Previous Rx's Medication Instructions Recorded HYDROcodone/APAP 5-325MG [[place] 5] 1 each PO Q6HR PRN #12 tab 03/12/22 Allergies Allergy/AdvReac Type Severity Reaction Status Date / Time Iodinated Contrast Media AdvReac Nausea Verified 03/23/22 00:03 [Iodinated Contrast Media - Oral and] Review of Systems ROS Statement: Those systems with pertinent positive or pertinent negative responses have been documented in the HPI. ROS Other: All systems not noted in ROS Statement are negative. Past Medical History Past Medical History: Asthma, GERD/Reflux, Hypertension, Osteoarthritis (OA) Additional Past Medical History / Comment(s): occ high BP-no rx, fx left shouDER History of Any Multi-Drug Resistant Organisms: None Reported Past Surgical History: Back Surgery, Hernia Repair, Orthopedic Surgery Additional Past Surgical History / Comment(s): 05/22/16 ORIF L shoulder. Other surgical hx: BACK fusion & neck fusion, carpal tunnel-rt Past Anesthesia/Blood Transfusion Reactions: Motion Sickness Past Psychological History: No Psychological Hx Reported, Depression Smoking Status: Current every day smoker Past Alcohol Use History: Daily, Heavy Past Drug Use History: None Reported - Past Family History Sister(s) Family Medical History: Cancer, Deep Vein Thrombosis (DVT) General Exam Limitations: no limitations General appearance: alert, in no apparent distress Head exam: Present: atraumatic, normocephalic, normal inspection Eye exam: Present: normal appearance, EOMI. Absent: scleral icterus, periorbital swelling Neck exam: Present: normal inspection Respiratory exam: Present: normal lung sounds bilaterally. Absent: respiratory distress, wheezes, rales, rhonchi, stridor Cardiovascular Exam: Present: regular rate, normal rhythm, normal heart sounds. Absent: systolic murmur, diastolic murmur, rubs, gallop, clicks Right Shoulder Exam: Present: normal inspection, tenderness. Absent: full ROM (Limi gerri secondary to pain), swelling, abrasion, deformity Neurosensory exam: Present: other (Neurovascularly intact) Neurological exam: Present: alert, oriented X3, CN II-XII intact Psychiatric exam: Present: normal affect, normal mood Skin exam: Present: warm, dry, intact, normal color. Absent: rash Course Vital Signs 03/25/22 00:39 Temperature 98.3 F Pulse Rate 93 Respiratory 16 Rate Blood Pressure 115/74 O2 Sat by Pulse 98 Oximetry Medical Decision Making - Medical Decision Making Patient is a 62-year-old male presenting with chief complaint of right shoulder pain. Patient was evaluated here and 02/20 for the same complaint, states that he was unable to get into his surgeon and is out of pain medication. On examination patient is under range of motion secondary to pain, he is neurovascularly intact. Patient is given pain medication and instructed to follow-up with Dr. Mccord. Report back to ER with any new or worsening symptoms. I discussed return parameters answered all questions. Patient conveyed verbal understanding and agreed to the plan. My attending is Dr. Gauthier. Disposition Clinical Impression: Shoulder pain Disposition: HOME SELF-CARE Condition: Good Instructions (If sedation given, give patient instructions): Shoulder Sprain (ED) Additional Instructions: Follow-up with PCP in one to 2 days. Report back to ER with any new or worsening symptoms. Is patient prescribed a controlled substance at d/c from ED?: Yes When asked, does pt state using other controlled substances?: No If prescribed controlled substance>3 days was MAPS reviewed?: Prescribed <3 Days If opioid is for acute pain is fill amount 7 days or less?: Yes Referrals: None,Stated [Primary Care Provider] - 1-2 days Luis Mccord MD [STAFF PHYSICIAN] - 1-2 days Time of Disposition: 01:05
== END 2022-03-25 01:21 | disposition home or self-care (01) ==
LOC: EC 00:34
DX: M25.511 Pain in right shoulder (principal); I10 Essential (primary) hypertension; J45.909 Unspecified asthma, uncomplicated; F17.200 Nicotine dependence, unspecified, uncomplicated; Z91.041 Radiographic dye allergy status
CPT/HCPCS: 99283; 96372; J1170

== ENCOUNTER 2022-03-28 07:19 | Emergency (ER) | payer OTHER ==
[2022-03-28 07:24] VITALS: BP 173/114; PULSE 90; RESP 18; TEMP 97.9
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
== END 2022-03-28 08:12 | disposition home or self-care (01) ==
LOC: EC 07:19
DX: S42.251G Displaced fracture of greater tuberosity of right humerus, subsequent encounter for fracture with delayed healing (principal); M25.511 Pain in right shoulder; I10 Essential (primary) hypertension; J45.909 Unspecified asthma, uncomplicated; F17.200 Nicotine dependence, unspecified, uncomplicated; Z91.041 Radiographic dye allergy status; W19.XXXD Unspecified fall, subsequent encounter
CPT/HCPCS: 99283

== ENCOUNTER 2022-04-19 19:37 | Emergency (ER) | payer OTHER ==
[2022-04-19 20:31] VITALS: BP 129/80; PULSE 99; RESP 16; TEMP 98.2
[2022-04-19] MEDS ORDERED: ACET/COD 300 MG/30 MG STARTER PACK 6 TAB BTL PO STA (21:34)
[2022-04-19] MEDS ORDERED: CYCLOBENZAPRINE 10MG STARTER 3 TAB BTL PO STA (21:34)
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
== END 2022-04-19 22:17 | disposition home or self-care (01) ==
LOC: EC 19:37
DX: M75.31 Calcific tendinitis of right shoulder (principal); J45.909 Unspecified asthma, uncomplicated; I10 Essential (primary) hypertension; F17.200 Nicotine dependence, unspecified, uncomplicated; Z91.041 Radiographic dye allergy status

== ENCOUNTER 2022-05-02 20:58 | Emergency (ER) | payer OTHER ==
[2022-05-02 21:05] VITALS: BP 155/93; PULSE 111; RESP 18; TEMP 97.8
[2022-05-02] MEDS ORDERED: LORazepam 2 MG/ML INJ IV STA (23:25)
[2022-05-02] MEDS ORDERED: SODIUM CHLORIDE 0.9% 1,000 ML IV ONE (23:25)
[2022-05-02] MEDS ORDERED: DIPH,PERTUS(ACELL)TETVAC-LF 0.5 ML VIAL IM ONE (23:26)
[2022-05-02] MEDS ORDERED: HYDROcodone/APAP 5-325MG 1 EACH TAB PO STA (23:26)
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
--- NOTE | 2022-05-03 00:02 | XR ---
EXAMINATION TYPE: XR chest 2V DATE OF EXAM: 05/02/2022 COMPARISON: 04/14/2022 HISTORY: Pain TECHNIQUE: 2 views FINDINGS: There is no heart failure nor confluent pneumonic infiltrate. Costophrenic angles are clear . Heart and mediastinum are normal. No pleural effusion. There is cervical spine fusion surgery. Ther e are pins in the left humeral head. IMPRESSION: Normal chest. There is clearing of the mild interstitial density compared to old exams
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
[2022-05-03 01:17] LABS: Basophils % (A) 0 %; Eosinophils # (A) 0.1 k/uL (0-0.7); Eosinophils % (A) 1 %; HCT 43.3 % (39.0-53.0); Lymphocytes # (A) 1.9 k/uL (1.0-4.8); Lymphocytes % (A) 24 %; MCH 34.7 pg (25.0-35.0); MCHC 34.8 g/dL (31.0-37.0); MCV 99.9 fL (80.0-100.0); Macrocytosis Slight; Mean Platelet Volume 8.6; Monocytes # (A) 0.5 k/uL (0-1.0); Monocytes % (A) 6 %; Neutrophils # (A) 5.5 k/uL (1.3-7.7); Neutrophils % (A) 67 %; Platelet Count 152 k/uL (150-450); RBC 4.33 m/uL (4.30-5.90); RDW 15.1 % (11.5-15.5); WBC 8.1 k/uL (3.8-10.6)
[2022-05-03 01:41] LABS: ALT 55 U/L (4-49); AST 161 U/L (17-59); African American GFR (CKD) >90 (>60 ml/min/1.73 sqM); Albumin 4.1 g/dL (3.5-5.0); Alcohol 14 mg/dL; Alkaline Phosphatase 121 U/L (38-126); Anion Gap 12 mmol/L; Blood Urea Nitrogen 8 mg/dL (9-20); Calcium 8.8 mg/dL (8.4-10.2); Carbon Dioxide 24 mmol/L (22-30); Chloride 101 mmol/L (98-107); Glucose 90 mg/dL (74-99); Non-African American GFR(CKD) >90 (>60 ml/min/1.73 sqM); Sodium 137 mmol/L (137-145); Total Bilirubin 1.6 mg/dL (0.2-1.3); Total Protein 7.6 g/dL (6.3-8.2)
[2022-05-03 02:07] LABS: Potassium 4.4 mmol/L (3.5-5.1)
[2022-05-03] MEDS ORDERED: HYDROcodone/APAP 5-325MG 1 EACH TAB PO STA (02:55)
[2022-05-03] MEDS ORDERED: IBUPROFEN 400 MG TAB PO STA (02:55)
== END 2022-05-03 03:15 | disposition home or self-care (01) ==
LOC: EC 20:58
DX: S00.83XA Contusion of other part of head, initial encounter (principal); J45.909 Unspecified asthma, uncomplicated; I10 Essential (primary) hypertension; K21.9 Gastro-esophageal reflux disease without esophagitis; Z23 Encounter for immunization; Z79.83 Long term (current) use of bisphosphonates; F17.200 Nicotine dependence, unspecified, uncomplicated; Z91.041 Radiographic dye allergy status; Y04.8XXA Assault by other bodily force, initial encounter
CPT/HCPCS: 36415; 80053; 85025; 71046; 72125; 70486; 70450; 74176; 90715; 99285; 96374; 90471; 96361; G0480; J2060; 80320

== ENCOUNTER 2022-05-28 07:34 | Emergency (ER) | payer OTHER ==
--- NOTE | 2022-05-28 08:28 | XR ---
EXAMINATION TYPE: XR chest 2V DATE OF EXAM: 05/28/2022 COMPARISON: 05/02/2022 HISTORY: 62-year-old male shortness of breath, swelling in the feet and this morning TECHNIQUE: PA and lateral views FINDINGS: ACDF and posterior cervical fusion hardware. Heart borderline in size. Increased diffuse fine interst itial density. Partially visualized percutaneous screw fixation proximal left humerus. No pleural eff usion. IMPRESSION: Borderline heart size. Increased diffuse fine interstitial density bilaterally. Correlate for develop ing mild CHF with pulmonary vascular congestion.
[2022-05-28 08:33] LABS: Basophils # (A) 0.1 k/uL (0-0.2); Basophils % (A) 1 %; Eosinophils # (A) 0.4 k/uL (0-0.7); Eosinophils % (A) 5 %; HCT 46.9 % (39.0-53.0); HGB 15.4 gm/dL (13.0-17.5); Lymphocytes # (A) 2.4 k/uL (1.0-4.8); Lymphocytes % (A) 29 %; MCH 32.8 pg (25.0-35.0); MCHC 32.9 g/dL (31.0-37.0); MCV 99.6 fL (80.0-100.0); Mean Platelet Volume 7.4; Monocytes # (A) 0.6 k/uL (0-1.0); Monocytes % (A) 7 %; Neutrophils # (A) 4.8 k/uL (1.3-7.7); Neutrophils % (A) 57 %; Platelet Count 209 k/uL (150-450); RBC 4.71 m/uL (4.30-5.90); RDW 14.1 % (11.5-15.5); WBC 8.5 k/uL (3.8-10.6)
[2022-05-28 08:50] LABS: ALT 54 U/L (4-49); AST 152 U/L (17-59); African American GFR (CKD) >90 (>60 ml/min/1.73 sqM); Albumin 3.9 g/dL (3.5-5.0); Alkaline Phosphatase 155 U/L (38-126); Anion Gap 10 mmol/L; Blood Urea Nitrogen 11 mg/dL (9-20); Calcium 8.8 mg/dL (8.4-10.2); Carbon Dioxide 25 mmol/L (22-30); Chloride 103 mmol/L (98-107); Glucose 88 mg/dL (74-99); Magnesium 1.6 mg/dL (1.6-2.3); Non-African American GFR(CKD) >90 (>60 ml/min/1.73 sqM); Potassium 4.1 mmol/L (3.5-5.1); Sodium 138 mmol/L (137-145); Total Bilirubin 1.1 mg/dL (0.2-1.3); Total Protein 7.1 g/dL (6.3-8.2)
[2022-05-28 09:31] VITALS: BP 148/77; PULSE 89; RESP 18; TEMP 98.5
--- NOTE | 2022-05-28 09:32 | ED ---
Extremity Problem HPI - General Chief complaint: Extremity Problem,Nontraumatic Stated complaint: Leg swelling Time Seen by Provider: 05/28/22 07:47 Source: patient, RN notes reviewed Mode of arrival: wheelchair Limitations: no limitations - History of Present Illness Initial comments: 62-year-old male presents emergency Department with chief complaint of leg swelling. Patient states that he woke up today. Denies any difficulty breathing or chest pain. Patient states he never had this much swelling the past. Though he states states been in his scooter and not been elevating his feet. Patient denies any abdominal pain. Patient has minimal rectal pain but his been ongoing chronic issue. Patient denies any other associated complaints. - Related Data Home Medications Medication Instructions Recorded Confirmed HYDROcodone/APAP 7.5-325MG [[place] 1 tab PO Q6HR PRN 03/11/22 03/11/22 7.5-325] Previous Rx's Medication Instructions Recorded HYDROcodone/APAP 5-325MG [[place] 5] 1 each PO Q6HR PRN #12 tab 03/12/22 HYDROcodone/APAP 7.5-325MG [[place] 1 tab PO Q6HR PRN 3 Days #12 tab 03/28/22 7.5-325] Ibuprofen [Motrin] 800 mg PO Q6HR PRN #20 tab 03/28/22 HYDROcodone/APAP 5-325MG [[place] 1 tab PO Q6HR PRN #12 tab 04/14/22 5-325] HYDROcodone/APAP 7.5-325MG [[place] 1 tab PO Q6HR PRN 3 Days #12 tab 04/19/22 7.5-325] HYDROcodone/APAP 5-325MG [[place] 1 tab PO Q4HR PRN 3 Days #15 tab 05/03/22 5-325] Furosemide [Lasix] 20 mg PO DAILY #3 tab 05/28/22 Allergies Allergy/AdvReac Type Severity Reaction Status Date / Time Iodinated Contrast Media AdvReac Nausea Verified 05/28/22 07:46 [Iodinated Contrast Media - Oral and] Review of Systems ROS Statement: Those systems with pertinent positive or pertinent negative responses have been documented in the HPI. ROS Other: All systems not noted in ROS Statement are negative. Past Medical History Past Medical History: Asthma, GERD/Reflux, Hypertension, Osteoarthritis (OA) Additional Past Medical History / Comment(s): occ high BP-no rx, fx left shouDER History of Any Multi-Drug Resistant Organisms: None Reported Past Surgical History: Back Surgery, Hernia Repair, Orthopedic Surgery Additional Past Surgical History / Comment(s): 05/22/16 ORIF L shoulder. Other surgical hx: BACK fusion & neck fusion, carpal tunnel-rt Past Anesthesia/Blood Transfusion Reactions: Motion Sickness Past Psychological History: No Psychological Hx Reported, Depression Smoking Status: Current every day smoker Past Alcohol Use History: Daily, Heavy Past Drug Use History: None Reported - Past Family History Sister(s) Family Medical History: Cancer, Deep Vein Thrombosis (DVT) General Exam Limitations: no limitations General appearance: alert, in no apparent distress Head exam: Present: atraumatic, normocephalic, normal inspection Eye exam: Present: normal appearance, PERRL, EOMI. Absent: scleral icterus, conjunctival injection, periorbital swelling ENT exam: Present: normal exam, normal oropharynx, mucous membranes moist Neck exam: Present: normal inspection, full ROM. Absent: tenderness, meningismus, lymphadenopathy Respiratory exam: Present: normal lung sounds bilaterally. Absent: respiratory distress, wheezes, rales, rhonchi, stridor Cardiovascular Exam: Present: regular rate, normal rhythm, normal heart sounds. Absent: systolic murmur, diastolic murmur, rubs, gallop, clicks Extremities exam: Present: pedal edema Neurological exam: Present: alert, oriented X3, CN II-XII intact, reflexes normal. Absent: motor sensory deficit Course Vital Signs 05/28/22 05/28/22 07:44 09:30 Temperature 98.2 F 98.5 F Pulse Rate 90 89 Respiratory 14 18 Rate Blood Pressure 150/92 148/77 O2 Sat by Pulse 95 95 Oximetry Medical Decision Making - Medical Decision Making 61-year-old presented for leg swelling. Patient has no associated complaints x- ray shows possible poor edema though he has a dramatic and this more likely atelectasis. Patient BMP is some 100. Patient is advised to elevate his legs has been dependent edema. - Lab Data Result diagrams: 05/28/22 08:01 05/28/22 08:01 Lab Results 05/28/22 05/28/22 05/28/22 Range/Units 08:01 08:01 08:01 WBC 8.5 (3.8-10.6) k/uL RBC 4.71 (4.30-5.90) m/uL Hgb 15.4 (13.0-17.5) gm/dL Hct 46.9 (39.0-53.0) % MCV 99.6 (80.0-100.0) fL MCH 32.8 (25.0-35.0) pg MCHC 32.9 (31.0-37.0) g/dL RDW 14.1 (11.5-15.5) % Plt Count 209 (150-450) k/uL MPV 7.4 Neutrophils % 57 % Lymphocytes % 29 % Monocytes % 7 % Eosinophils % 5 % Basophils % 1 % Neutrophils # 4.8 (1.3-7.7) k/uL Lymphocytes # 2.4 (1.0-4.8) k/uL Monocytes # 0.6 (0-1.0) k/uL Eosinophils # 0.4 (0-0.7) k/uL Basophils # 0.1 (0-0.2) k/uL Sodium 138 (137-145) mmol/L Potassium 4.1 (3.5-5.1) mmol/L Chloride 103 (98-107) mmol/L Carbon Dioxide 25 (22-30) mmol/L Anion Gap 10 mmol/L BUN 11 (9-20) mg/dL Creatinine 0.61 L (0.66-1.25) mg/dL Est GFR (CKD-EPI)AfAm >90 (>60 ml/min/1.73 sqM) Est GFR (CKD-EPI)NonAf >90 (>60 ml/min/1.73 sqM) Glucose 88 (74-99) mg/dL Calcium 8.8 (8.4-10.2) mg/dL Magnesium 1.6 (1.6-2.3) mg/dL Total Bilirubin 1.1 (0.2-1.3) mg/dL AST 152 H (17-59) U/L ALT 54 H (4-49) U/L Alkaline Phosphatase 155 H (38-126) U/L NT-Pro-B Natriuret Pep 96 pg/mL Total Protein 7.1 (6.3-8.2) g/dL Albumin 3.9 (3.5-5.0) g/dL Disposition Clinical Impression: Leg edema Disposition: HOME SELF-CARE Condition: Stable Instructions (If sedation given, give patient instructions): Leg Edema (ED) Additional Instructions: Please return to the Emergency Department if symptoms worsen or any other concerns. Prescriptions: Furosemide [Lasix] 20 mg PO DAILY #3 tab Is patient prescribed a controlled substance at d/c from ED?: No Referrals: None,Stated [Primary Care Provider] - 1-2 days Time of Disposition: 09:34
== END 2022-05-28 09:55 | disposition home or self-care (01) ==
LOC: EC 07:34
DX: R60.0 Localized edema (principal); J45.909 Unspecified asthma, uncomplicated; K21.9 Gastro-esophageal reflux disease without esophagitis; I10 Essential (primary) hypertension; F17.200 Nicotine dependence, unspecified, uncomplicated; Z91.041 Radiographic dye allergy status
CPT/HCPCS: 36415; 71046; 80053; 83735; 83880; 85025; 99285

== ENCOUNTER 2022-09-22 20:11 | Emergency (ER) | payer OTHER ==
[2022-09-22 20:30] VITALS: TEMP 98.2
[2022-09-22] MEDS ORDERED: DEXAMETHASONE SOD PHOSPHATE 10 MG/ML 1 ML VIAL IM STA (23:28)
[2022-09-22] MEDS ORDERED: KETOROLAC 15 MG/ML 1 ML VIAL IM STA (23:28)
[2022-09-22] MEDS ORDERED: ORPHENADRINE 30 MG/ML 2 ML VIAL IM STA (23:28)
--- NOTE | 2022-09-22 23:49 | ED ---
Back Pain HPI - General Chief Complaint: Back Pain/Injury Stated Complaint: back pain Time Seen by Provider: 09/22/22 23:18 Source: patient Limitations: no limitations - History of Present Illness Initial Comments: Patient is 62-year-old male presenting with chief complaint of back pain. Pain is located in the bilateral lower back. No injury or trauma. No loss of bowel or bladder control or saddle paresthesia. Patient describes it as a spasming pain. He is having difficulty ambulating secondary to the pain. He admits to numbness and tingling of the lower extremities. - Related Data Previous Rx's Medication Instructions Recorded Furosemide [Lasix] 20 mg PO DAILY #3 tab 05/28/22 Cyclobenzaprine [Flexeril] 10 mg PO HS PRN #10 tab 09/23/22 Allergies Allergy/AdvReac Type Severity Reaction Status Date / Time Iodinated Contrast Media AdvReac Nausea Verified 05/28/22 09:53 [Iodinated Contrast Media - Oral and] Review of Systems ROS Statement: Those systems with pertinent positive or pertinent negative responses have been documented in the HPI. ROS Other: All systems not noted in ROS Statement are negative. Past Medical History Past Medical History: Asthma, GERD/Reflux, Hypertension, Osteoarthritis (OA) Additional Past Medical History / Comment(s): occ high BP-no rx, fx left shouDER History of Any Multi-Drug Resistant Organisms: None Reported Past Surgical History: Back Surgery, Hernia Repair, Orthopedic Surgery Additional Past Surgical History / Comment(s): 05/22/16 ORIF L shoulder. Other surgical hx: BACK fusion & neck fusion, carpal tunnel-rt Past Anesthesia/Blood Transfusion Reactions: Motion Sickness Past Psychological History: No Psychological Hx Reported, Depression Smoking Status: Current every day smoker Past Alcohol Use History: Daily, Heavy Past Drug Use History: None Reported - Past Family History Sister(s) Family Medical History: Cancer, Deep Vein Thrombosis (DVT) General Exam Limitations: no limitations General appearance: alert, in no apparent distress Head exam: Present: atraumatic, normocephalic, normal inspection Eye exam: Present: normal appearance Neck exam: Present: normal inspection, full ROM Back exam: Present: normal inspection, tenderness Neurological exam: Present: alert, oriented X3, CN II-XII intact Psychiatric exam: Present: normal affect, normal mood Skin exam: Present: warm, dry, intact, normal color. Absent: rash Course Vital Signs 09/22/22 09/23/22 20:26 01:49 Temperature 98.2 F Pulse Rate 89 84 Respiratory 16 15 Rate Blood Pressure 145/88 129/74 O2 Sat by Pulse 95 99 Oximetry Medical Decision Making - Medical Decision Making Was pt. sent in by a medical professional or institution (, AMANDA, TOBACCO CHECKOUT CLERK, urgent care, hospital, or senior care...) When possible be specific @ -No Did you speak to anyone other than the patient for history (EMS, parent, family, police, friend...)? What history was obtained from this source @ -No Did you review nursing and triage notes (agree or disagree)? Why? @ -I reviewed and agree with nursing and triage notes Were old charts reviewed (outside hosp., previous admission, EMS record, old EKG, old radiological studies, urgent care reports/EKG's, senior care records)? Report findings @ -No old charts were reviewed Differential Diagnosis (chest pain, altered mental status, abdominal pain women, abdominal pain men, vaginal bleeding, weakness, fever, dyspnea, syncope, headache, dizziness, GI bleed, back pain, seizure, CVA, palpatations, mental health)? @ - MDM Differential Back Pain: Strain, zoster, cauda equina syndrome, epidural abscess, vertebral osteomyelitis, discitis, fracture, subluxation, disc herniation, DJD, spinal stenosis, dissection, AAA, pancreatitis, peptic ulcer disease, pyelonephritis, kidney stone this is not meant to be an all-inclusive list. EKG interpreted by me (3pts min.). @ -As above X-rays interpreted by me (1pt min.). @ -X-ray shows no fracture CT interpreted by me (1pt min.). @ -None done U/S interpreted by me (1pt. min.). @ -None done What testing was considered but not performed or refused? (CT, X-rays, U/S, labs)? Why? @ -None What meds were considered but not given or refused? Why? @ -None Did you discuss the management of the patient with other professionals (professionals i.e. AMANDA Hendrix, TOBACCO CHECKOUT CLERK, lab, RT, psych nurse, manager social services, event host, teacher, senior compliance officer, mental health case manager)? Give summary @ -No Was smoking cessation discussed for >3mins.? @ -No Was critical care preformed (if so, how long)? @ -No Were there social determinants of health that impacted care today? How? (Homelessness, low income, unemployed, alcoholism, drug addiction, transportation, low edu. Level, literacy, decrease access to med. care, [facility], rehab)? @ -No Was there de-escalation of care discussed even if they declined (Discuss DNR or withdrawal of care, Hospice)? DNR status @ -No What co-morbidities impacted this encounter? (DM, HTN, Smoking, COPD, CAD, Cancer, CVA, ARF, Chemo, Hep., AIDS, mental health diagnosis, sleep apnea, morbid obesity)? @ -None Was patient admitted / discharged? Hospital course, mention meds given and route, prescriptions, significant lab abnormalities, going to OR and other pertinent info. @ -Patient is a 62-year-old male presenting with chief complaint of lower back pain. Pain feels like a spasming. Worse with range of motion and ambulation. No red flag symptoms. On physical examination there is tenderness with range of motion and palpation. X-ray is negative for any fracture. Patient is given Toradol, Norflex, and Decadron for pain. Provided with a prescription for muscle relaxers as needed, do not take before driving or operating heavy machinery as it may cause drowsiness. Follow-up with PCP. Report back to ER with any new or worsening symptoms. Discussed return parameters and answered all questions. Patient conveyed verbal understanding and agreed to the plan. I discussed this case in detail with my attending Dr. Rodrigez Undiagnosed new problem with uncertain prognosis? @ -No Drug Therapy requiring intensive monitoring for toxicity (Heparin, Nitro, Insulin, Cardizem)? @ -No Were any procedures done? @ -No Diagnosis/symptom? @ -Back pain Acute, or Chronic, or Acute on Chronic? @ -Acute Uncomplicated (without systemic symptoms) or Complicated (systemic symptoms)? @ -Uncomplicated Side effects of treatment? @ -No Exacerbation, Progression, or Severe Exacerbation? @ -No Poses a threat to life or bodily function? How? (Chest pain, USA, [place], pneumonia, PE, COPD, DKA, ARF, appy, cholecystitis, CVA, Diverticulitis, Homicidal, Suicidal, threat to staff... and all critical care pts) @ -No Disposition Clinical Impression: Mechanical back pain Disposition: HOME SELF-CARE Condition: Good Instructions (If sedation given, give patient instructions): Acute Low Back Pain (ED) Additional Instructions: Follow-up with PCP, if needed a suggestion has been provided for you. Report back to ER with any new or worsening symptoms. Take Motrin and Tylenol as needed for pain control. Take muscle relaxer as needed, may cause drowsiness do not take before driving or operating heavy machinery Prescriptions: Cyclobenzaprine [Flexeril] 10 mg PO HS PRN #10 tab PRN Reason: Spasms Is patient prescribed a controlled substance at d/c from ED?: No Referrals: None,Stated [Primary Care Provider] - 1-2 days Samuel Westfall MD [STAFF PHYSICIAN] - 1-2 days Time of Disposition: 01:05
--- NOTE | 2022-09-23 00:25 | XR ---
EXAMINATION TYPE: XR lumbar spine 2 or 3V DATE OF EXAM: 09/22/2022 COMPARISON: 09/05/2021 HISTORY: Back pain TECHNIQUE: 3 view FINDINGS: There are rods and screws fusing posteriorly the lumbar spine from L3 to S1. There is anter ior mild subluxation of L2 in relation to L3. There is degenerative disc space narrowing from L3 to S 1. No compression fracture. Abdominal aorta is atheromatous. The sacroiliac joints are intact. There is laminectomy defect in the lower lumbar spine. IMPRESSION: Multilevel posterior fusion surgery. Spondylotic changes. There is degenerative mild subl uxation at L2-3 which is stable compared to old exam. No fracture seen.
[2022-09-23 01:50] VITALS: BP 129/74; PULSE 84; RESP 15
== END 2022-09-23 01:50 | disposition home or self-care (01) ==
LOC: EC 20:11
DX: M54.50 Low back pain, unspecified (principal); M51.36 Other intervertebral disc degeneration, lumbar region; M47.816 Spondylosis without myelopathy or radiculopathy, lumbar region; J45.909 Unspecified asthma, uncomplicated; I10 Essential (primary) hypertension; F17.200 Nicotine dependence, unspecified, uncomplicated; Z91.041 Radiographic dye allergy status
CPT/HCPCS: 72100; 96372; 99284

== ENCOUNTER 2023-04-12 08:41 | Emergency (ER) | payer OTHER ==
[2023-04-12 08:51] VITALS: RESP 18
--- NOTE | 2023-04-12 09:22 | ED ---
General Adult HPI - General Chief complaint: Abdominal Pain Stated complaint: back pain Time Seen by Provider: 04/12/23 09:01 Source: patient Mode of arrival: ambulatory Limitations: no limitations - History of Present Illness Initial comments: Dictation was produced using [employer] dictation software. please excuse any grammatical, word or spelling errors. Chief Complaint: 63-year-old male presents with right-sided abdominal pain History of Present Illness: 63-year-old male presents to the emergency department for abdominal pain. Patient states he's had episodes of this pain for several weeks. He's been diagnosed recently with inguinal hernia. Patient states the pain is severe. He takes Suboxone at home. Denies any other medical problems. Denies any changes urinary symptoms. States that he does have flank pain, abdominal pain. States pain radiates some to his groin. Denies any history of kidney stones. The ROS documented in this emergency department record has been reviewed and confirmed by me. Those systems with pertinent positive or negative responses have been documented in the HPI. All other systems are other negative and/or noncontributory. - Related Data Home Medications Medication Instructions Recorded Confirmed Buprenorphine/Naloxone 8Mg/2Mg 1 film SL BID 04/12/23 04/12/23 [Suboxone 8-2Mg Film] Allergies Allergy/AdvReac Type Severity Reaction Status Date / Time Iodinated Contrast Media AdvReac Nausea Verified 04/12/23 10:39 [Iodinated Contrast Media - Oral and] Review of Systems ROS Statement: Those systems with pertinent positive or pertinent negative responses have been documented in the HPI. ROS Other: All systems not noted in ROS Statement are negative. Past Medical History Past Medical History: Asthma, GERD/Reflux, Hypertension, Osteoarthritis (OA) Additional Past Medical History / Comment(s): occ high BP-no rx, fx left shouDER History of Any Multi-Drug Resistant Organisms: None Reported Past Surgical History: Back Surgery, Hernia Repair, Orthopedic Surgery Additional Past Surgical History / Comment(s): 05/22/16 ORIF L shoulder. Other surgical hx: BACK fusion & neck fusion, carpal tunnel-rt Past Anesthesia/Blood Transfusion Reactions: Motion Sickness Past Psychological History: No Psychological Hx Reported, Depression Smoking Status: Current every day smoker Past Alcohol Use History: Daily, Heavy Past Drug Use History: None Reported - Past Family History Sister(s) Family Medical History: Cancer, Deep Vein Thrombosis (DVT) General Exam - General Exam Comments Initial Comments: PHYSICAL EXAM: General Impression: Alert and oriented x3, not in acute distress HEENT: Normocephalic atraumatic, extra-ocular movements intact, pupils equal and reactive to light bilaterally, mucous membranes moist. Cardiovascular: Heart regular rate and rhythm Chest: Able to complete full sentences, no retractions, no tachypnea Abdomen: abdomen soft, palpatory tenderness to the right abdomen right flank, non-distended, no organomegaly : Enlarged testicle no obvious if there is bowel in the scrotum Musculoskeletal: Pulses present and equal in all extremities, no peripheral edema Motor: no focal deficits noted Neurological: CN II-XII grossly intact, no focal motor or sensory deficits noted Skin: Intact with no visualized rashes Psych: Normal affect and mood Limitations: no limitations Course Vital Signs 04/12/23 04/12/23 04/12/23 08:49 12:08 14:24 Temperature 98 F 97.6 F Pulse Rate 82 68 71 Respiratory 18 18 18 Rate Blood Pressure 148/83 153/83 158/97 O2 Sat by Pulse 99 95 96 Oximetry Medical Decision Making - Medical Decision Making Was pt. sent in by a medical professional or institution (, PA, ASSOCIATE PATHOLOGIST, urgent care, hospital, or [facility]...) When possible be specific @ -No Did you speak to anyone other than the patient for history (EMS, parent, family, police, friend...)? What history was obtained from this source @ -No Did you review nursing and triage notes (agree or disagree)? Why? @ -I reviewed and agree with nursing and triage notes Were old charts reviewed (outside hosp., previous admission, EMS record, old EKG, old radiological studies, urgent care reports/EKG's, [facility] records)? Report findings @ -No old charts were reviewed Differential Diagnosis (chest pain, altered mental status, abdominal pain women, abdominal pain men, vaginal bleeding, musculoskeletal, weakness, fever, dyspnea, syncope, headache, dizziness, GI bleed, back pain, seizure, CVA, palpatations, mental health)? @ -Differential Back Pain: Strain, zoster, cauda equina syndrome, epidural abscess, vertebral osteomyelitis, discitis, fracture, subluxation, disc herniation, DJD, spinal stenosis, dissection, AAA, pancreatitis, peptic ulcer disease, pyelonephritis, kidney stone, this is not meant to be an all-inclusive list. EKG interpreted by me (3pts min.). @ -None done X-rays interpreted by me (1pt min.). @ -None done CT interpreted by me (1pt min.). @ -Computed tomography scan of the abdomen and pelvis with contrast shows no acute processes. U/S interpreted by me (1pt. min.). @ -Ultrasound of the scrotum shows bilateral hydroceles What testing was considered but not performed or refused? (CT, X-rays, U/S, labs)? Why? @ -None What meds were considered but not given or refused? Why? @ -None Did you discuss the management of the patient with other professionals (professionals i.e. , PA, ASSOCIATE PATHOLOGIST, lab, RT, psych nurse, transition social worker, cruise consultant, teacher, plant protection officer, leather case finisher)? Give summary @ -No Was smoking cessation discussed for >3mins.? @ -No Was critical care preformed (if so, how long)? @ -No Were there social determinants of health that impacted care today? How? (Homel essness, low income, unemployed, alcoholism, drug addiction, transportation, low edu. Level, literacy, decrease access to med. care, [facility], rehab)? @ -No Was there de-escalation of care discussed even if they declined (Discuss DNR or withdrawal of care, Hospice)? DNR status @ -No What co-morbidities impacted this encounter? (DM, HTN, Smoking, COPD, CAD, Cancer, CVA, ARF, Chemo, Hep., AIDS, mental health diagnosis, sleep apnea, morbid obesity)? @ -None Was patient admitted / discharged? Hospital course, mention meds given and route, prescriptions, significant lab abnormalities, going to OR and other pertinent info. @ -C3-year-old male presents with right-sided flank pain. Vital signs upon arrival are within acceptable limits. Patient has a positional component to it. Laboratory evaluation obtained showing findings within acceptable limits. Urinalysis negative. CT and ultrasound obtained showing no acute processes. He does have bilateral hydroceles he is given referral to urology. Undiagnosed new problem with uncertain prognosis? @ -No Drug Therapy requiring intensive monitoring for toxicity (Heparin, Nitro, Insulin, Cardizem)? @ -No Were any procedures done? @ -No Diagnosis/symptom? Acute, or Chronic, or Acute on Chronic? Uncomplicated (without systemic symptoms) or Complicated (systemic symptoms)? @ -Back strain Side effects of treatment? @ -No Exacerbation, Progression, or Severe Exacerbation? @ -No Poses a threat to life or bodily function? How? (Chest pain, USA, CT, pneumonia, PE, COPD, DKA, ARF, appy, cholecystitis, CVA, Diverticulitis, Homicidal, Suicidal, threat to staff... and all critical care pts) @ -No - Lab Data Result diagrams: 04/12/23 09:19 04/12/23 09:19 Lab Results 04/12/23 04/12/23 04/12/23 Range/Units 09:19 09:19 09:19 WBC 7.5 (3.8-10.6) k/uL RBC 3.94 L (4.30-5.90) m/uL Hgb 12.9 L (13.0-17.5) gm/dL Hct 38.2 L (39.0-53.0) % MCV 96.9 (80.0-100.0) fL MCH 32.8 (25.0-35.0) pg MCHC 33.8 (31.0-37.0) g/dL RDW 14.3 (11.5-15.5) % Plt Count 178 (150-450) k/uL MPV 7.8 Neutrophils % 54 % Lymphocytes % 34 % Monocytes % 8 % Eosinophils % 2 % Basophils % 0 % Neutrophils # 4.0 (1.3-7.7) k/uL Lymphocytes # 2.6 (1.0-4.8) k/uL Monocytes # 0.6 (0-1.0) k/uL Eosinophils # 0.2 (0-0.7) k/uL Basophils # 0.0 (0-0.2) k/uL Sodium 138 (137-145) mmol/L Potassium 4.2 (3.5-5.1) mmol/L Chloride 103 (98-107) mmol/L Carbon Dioxide 30 (22-30) mmol/L Anion Gap 5 mmol/L BUN 6 L (9-20) mg/dL Creatinine 0.73 (0.66-1.25) mg/dL Est GFR (CKD-EPI)AfAm >90 (>60 ml/min/1.73 sqM) Est GFR (CKD-EPI)NonAf >90 (>60 ml/min/1.73 sqM) Glucose 95 (74-99) mg/dL Calcium 8.8 (8.4-10.2) mg/dL Total Bilirubin 0.7 (0.2-1.3) mg/dL AST 73 H (17-59) U/L ALT 45 (4-49) U/L Alkaline Phosphatase 335 H (38-126) U/L Total Protein 7.2 (6.3-8.2) g/dL Albumin 3.7 (3.5-5.0) g/dL Lipase 69 (23-300) U/L Urine Color Light Yellow Urine Appearance Clear (Clear) Urine pH 7.0 (5.0-8.0) Ur Specific [place] 1.011 (1.001-1.035) Urine Protein Negative (Negative) Urine Glucose (UA) Negative (Negative) Urine Ketones Negative (Negative) Urine Blood Negative (Negative) Urine Nitrite Negative (Negative) Urine Bilirubin Negative (Negative) Urine Urobilinogen <2.0 (<2.0) mg/dL Ur Leukocyte Esterase Negative (Negative) Disposition Clinical Impression: Back strain Disposition: HOME SELF-CARE Condition: Good Instructions (If sedation given, give patient instructions): Hydrocele (ED) Is patient prescribed a controlled substance at d/c from ED?: No Referrals: Cassandra Blount MD [Primary Care Provider] - 1-2 days Victor Hugo Reynoso MD [STAFF PHYSICIAN] - 1-2 days
[2023-04-12 09:28] LABS: Basophils % (A) 0 %; Eosinophils # (A) 0.2 k/uL (0-0.7); Eosinophils % (A) 2 %; HCT 38.2 % (39.0-53.0); HGB 12.9 gm/dL (13.0-17.5); Lymphocytes # (A) 2.6 k/uL (1.0-4.8); Lymphocytes % (A) 34 %; MCH 32.8 pg (25.0-35.0); MCHC 33.8 g/dL (31.0-37.0); MCV 96.9 fL (80.0-100.0); Mean Platelet Volume 7.8; Monocytes # (A) 0.6 k/uL (0-1.0); Monocytes % (A) 8 %; Neutrophils % (A) 54 %; Platelet Count 178 k/uL (150-450); RBC 3.94 m/uL (4.30-5.90); RDW 14.3 % (11.5-15.5); WBC 7.5 k/uL (3.8-10.6)
[2023-04-12 09:44] LABS: ALT 45 U/L (4-49); AST 73 U/L (17-59); African American GFR (CKD) >90 (>60 ml/min/1.73 sqM); Albumin 3.7 g/dL (3.5-5.0); Alkaline Phosphatase 335 U/L (38-126); Anion Gap 5 mmol/L; Blood Urea Nitrogen 6 mg/dL (9-20); Calcium 8.8 mg/dL (8.4-10.2); Carbon Dioxide 30 mmol/L (22-30); Chloride 103 mmol/L (98-107); Glucose 95 mg/dL (74-99); Lipase 69 U/L (23-300); Non-African American GFR(CKD) >90 (>60 ml/min/1.73 sqM); Potassium 4.2 mmol/L (3.5-5.1); Sodium 138 mmol/L (137-145); Total Bilirubin 0.7 mg/dL (0.2-1.3); Total Protein 7.2 g/dL (6.3-8.2)
[2023-04-12] MEDS ORDERED: diphenhydrAMINE 50 MG/ML 1 ML VIAL IVP STA (10:48)
[2023-04-12] MEDS ORDERED: FAMOTIDINE 20 MG/2 ML VIAL IV STA (10:48)
[2023-04-12] MEDS ORDERED: methylPREDNISolone SOD SUCCI 125 MG/2 ML VIAL IV STA (10:48)
[2023-04-12 11:17] LABS: Appearance,Urine Clear (Clear); Bilirubin,Urine Negative (Negative); Blood,Urine Negative (Negative); Color,Urine Light Yellow; Glucose,Urine (UA) Negative (Negative); Ketones,Urine Negative (Negative); Leukocyte Esterase,Urine Negative (Negative); Nitrite,Urine Negative (Negative); Protein,Urine Negative (Negative); Specific Gravity,Urine 1.011 (1.001-1.035); Urobilinogen,Urine <2.0 mg/dL (<2.0)
[2023-04-12] MEDS ORDERED: HYDROmorphone 1 MG/ML 1 ML SYRINGE IVP STA (11:52)
--- NOTE | 2023-04-12 13:09 | CT ---
EXAMINATION TYPE: CT abdomen pelvis w con DATE OF EXAM: 04/12/2023 COMPARISON: 05/02/2022 INDICATION: Abdominal pain. DLP: 1813.3 mGycm, Automated exposure control for dose reduction was used. CONTRAST: 100 mL of Isovue 300. Study performed without Oral Contrast TECHNIQUE: Axial images were obtained from above the diaphragm to the pubic rami in the axial plane a t 5 mm thick sections. Reconstructed images are reviewed on the computer in the coronal plane. FINDINGS: Limited CT sections are obtained the lung bases. The lung bases are clear. CT ABDOMEN: Liver: There is moderate fatty infiltration of the liver. No discrete masses or cysts are evident. He patomegaly is present at 19.6 cm craniocaudal dimension liver. Spleen: Normal Pancreas: Normal Adrenal glands: The adrenal glands are normal. Gallbladder: Normal Kidneys: No masses are evident. No hydronephrosis is present. No cysts are present. Delayed images were obtained through the kidneys, which remain unremarkable. Aorta: Vascular calcification is within the aorta. Inferior vena cava: Normal. CT PELVIS: Loops of bowel within the abdomen and pelvis are normal. The study is without oral contrast limit ing bowel evaluation. Appendix: Normal as visualized. Urinary bladder: Normal. Genitourinary structures: Prostate is unremarkable Osseous structures: No suspicious lytic or sclerotic lesions. Postsurgical changes are within the lum bar spine. IMPRESSIONS: 1. No acute abnormality. Follow-up can be performed as clinically indicated 2. Moderate fatty infiltration liver and hepatomegaly
[2023-04-12 14:27] VITALS: TEMP 97.6
--- NOTE | 2023-04-12 14:41 | US ---
EXAMINATION TYPE: US scrotum with doppler. Grayscale and color Doppler Duplex imaging performed of georgette fuller scrotum. DATE OF EXAM: 04/12/2023 COMPARISON: 04/12/2023 CT CLINICAL INDICATION: Male, 63 years old with history of pain; swollen testicles bilaterally, back remington n EXAM MEASUREMENTS: TESTICLES: Right Testicle: 4.3 x 2.7 x 2.6 cm Left Testicle: 4.2 x 2.6 x 2.2 cm EPIDIDYMIS HEAD: Right Epididymis: 1.2 cm - 0.6cm cyst Left Epididymis: 1.2 cm - 0.5cm cyst Doppler performed to assess for testicular vascularity; good bilateral color flow and waveforms are s een. There is no evidence of testicular torsion. Presence of hydroceles: yes, severe bilaterally Presence of varicoceles: no IMPRESSION: 1. Large hydroceles bilaterally. 2. Arterial and venous spectral waveforms to the testes.
[2023-04-12 15:40] VITALS: BP 170/98; PULSE 72
== END 2023-04-12 15:40 | disposition home or self-care (01) ==
LOC: EC 08:41
DX: S39.012A Strain of muscle, fascia and tendon of lower back, initial encounter (principal); N43.3 Hydrocele, unspecified; J45.909 Unspecified asthma, uncomplicated; I10 Essential (primary) hypertension; F17.200 Nicotine dependence, unspecified, uncomplicated; Z91.041 Radiographic dye allergy status; X58.XXXA Exposure to other specified factors, initial encounter
CPT/HCPCS: 36415; 80053; 83690; 85025; 81003; 93975; 76870; 74177; 99284; 96374; 96375 ×3; J1200; J2930; J1170; Q9967

== ENCOUNTER 2023-10-04 22:12 | Emergency (ER) | payer OTHER ==
--- NOTE | 2023-10-04 22:20 | ED ---
General Adult HPI - General Source: patient, family, RN notes reviewed Mode of arrival: wheelchair Limitations: no limitations <Brook Johnson - Last Filed: 10/04/23 22:18> <Tomasz Ahuja - Last Filed: 10/05/23 02:59> - General Chief complaint: Weakness Stated complaint: Covid +, Weakness Time Seen by Provider: 10/04/23 22:18 - History of Present Illness Initial comments: This is a 63-year-old male who presents to the emergency department for generalized weakness. States that he just tested positive for Covid. He is sleeping all day, has body aches, and not eating. (Brook Johnson) 63-year-old male presents to the ED with a chief complaint of fatigue. Patient notes he tested positive for COVID. Notes body aches, cough, congestion, and chills. No chest pain or shortness of breath. No other complaints at this time. Patient notes that he is a smoker. (Tomasz Ahuja) - Related Data Home Medications Medication Instructions Recorded Confirmed Buprenorphine/Naloxone 8Mg/2Mg 1 film SL BID 04/12/23 04/12/23 [Suboxone 8-2Mg Film] Previous Rx's Medication Instructions Recorded Acetaminophen Tab [Tylenol] 650 mg PO Q6H #30 tab 10/05/23 Ibuprofen [Motrin] 600 mg PO Q8HR PRN #30 tab 10/05/23 Allergies Allergy/AdvReac Type Severity Reaction Status Date / Time Iodinated Contrast Media AdvReac Nausea Verified 10/04/23 23:09 [Iodinated Contrast Media - Oral and] Review of Systems ROS Other: All systems not noted in ROS Statement are negative. <Brook Johnson - Last Filed: 10/04/23 22:18> ROS Other: All systems not noted in ROS Statement are negative. <Tomasz Ahuja - Last Filed: 10/05/23 02:59> ROS Statement: Those systems with pertinent positive or pertinent negative responses have been documented in the HPI. Past Medical History Past Medical History: Asthma, GERD/Reflux, Hypertension, Osteoarthritis (OA) Additional Past Medical History / Comment(s): occ high BP-no rx, fx left shouDER History of Any Multi-Drug Resistant Organisms: None Reported Past Surgical History: Back Surgery, Hernia Repair, Orthopedic Surgery Additional Past Surgical History / Comment(s): 05/22/16 ORIF L shoulder. Other surgical hx: BACK fusion & neck fusion, carpal tunnel-rt Past Anesthesia/Blood Transfusion Reactions: Motion Sickness Past Psychological History: No Psychological Hx Reported, Depression Smoking Status: Current every day smoker Past Alcohol Use History: Daily, Heavy Past Drug Use History: None Reported - Past Family History Sister(s) Family Medical History: Cancer, Deep Vein Thrombosis (DVT) <Brook Johnson - Last Filed: 10/04/23 22:18> General Exam <Brook Johnson - Last Filed: 10/04/23 22:18> General appearance: alert Eye exam: Present: normal appearance Neck exam: Present: normal inspection Respiratory exam: Present: wheezes (Slight inspiratory and expiratory wheeze.) Cardiovascular Exam: Present: regular rate, normal rhythm GI/Abdominal exam: Present: soft Neurological exam: Present: alert, oriented X3 Skin exam: Present: warm, dry <Tomasz Ahuja - Last Filed: 10/05/23 02:59> - General Exam Comments Initial Comments: Visual Physical Exam Vital signs reviewed General: Well-appearing, nontoxic, no acute distress. Head: Normocephalic, atraumatic Eyes: PERRLA, EOMI ENT: Airway patent Chest: Nonlabored breathing Skin: No visual rash, normal skin tone Neuro: Alert and oriented 3 Musculoskeletal: No gross abnormalities (Brook Johnson) Course Vital Signs 10/04/23 23:10 Temperature 98.4 F Pulse Rate 95 Respiratory 17 Rate Blood Pressure 121/78 O2 Sat by Pulse 98 Oximetry Medical Decision Making <Borok Johnson - Last Filed: 10/04/23 22:18> - Lab Data Result diagrams: 10/04/23 23:31 10/04/23 23:31 <Tomasz Ahuja - Last Filed: 10/05/23 02:59> - Medical Decision Making I performed the QuickNote portion of this chart. Signed Brook Johnson PA-C. (Brook Johnson) Was pt. sent in by a medical professional or institution (AMANDA Hendrix, BUSINESS INITIATIVES MANAGER, urgent care, hospital, or [facility]...) When possible be specific @ -[place] Did you speak to anyone other than the patient for history (EMS, parent, family, police, friend...)? What history was obtained from this source @ -No Did you review nursing and triage notes (agree or disagree)? Why? @ -I reviewed and agree with nursing and triage notes Were old charts reviewed (outside hosp., previous admission, EMS record, old EKG, old radiological studies, urgent care reports/EKG's, [facility] records)? Report findings @ -No old charts were reviewed Differential Diagnosis (chest pain, altered mental status, abdominal pain women, abdominal pain men, vaginal bleeding, weakness, fever, dyspnea, syncope, headache, dizziness, GI bleed, back pain, seizure, CVA, palpatations, mental health, musculoskeletal)? @ -Differential Fever: Pneumonia, viral URI, endocarditis, myocarditis, pericarditis, otitis, sinusitis, peritonsillar Abscess, retropharyngeal Abscess, epiglottitis, pe ritonitis, appendicitis, Tamanna cystitis, diverticulitis, hepatitis, colitis, UTI, PID, TOA, pyelonephritis, prostatitis, epididymitis, meningitis, encephalitis, pulmonary embolism, CVA, thyroid storm, pancreatitis, adrenal crisis, cavernous sinus thrombosis, this is not meant to be an all-inclusive list. EKG interpreted by me (3pts min.). @ -None X-rays interpreted by me (1pt min.). @ -Chest x-ray interpreted by me showing no evidence of pneumonia or other acute finding. CT interpreted by me (1pt min.). @ -None done U/S interpreted by me (1pt. min.). @ -None done What testing was considered but not performed or refused? (CT, X-rays, U/S, labs)? Why? @ -None What meds were considered but not given or refused? Why? @ -None Did you discuss the management of the patient with other professionals (professionals i.e. , PA, BUSINESS INITIATIVES MANAGER, lab, RT, psych nurse, social media campaign manager, filtering machine tender helper, teacher, precinct commanding officer, case monitor)? Give summary @ -No Was smoking cessation discussed for >3mins.? @ -No Was critical care preformed (if so, how long)? @ -No Were there social determinants of health that impacted care today? How? (Homelessness, low income, unemployed, alcoholism, drug addiction, transportation, low edu. Level, literacy, decrease access to med. care, care home, rehab)? @ -No Was there de-escalation of care discussed even if they declined (Discuss DNR or withdrawal of care, Hospice)? DNR status @ -No What co-morbidities impacted this encounter? (DM, HTN, Smoking, COPD, CAD, Cancer, CVA, ARF, Chemo, Hep., AIDS, mental health diagnosis, sleep apnea, morbid obesity)? @ -None Was patient admitted / discharged? Hospital course, mention meds given and route, prescriptions, significant lab abnormalities, going to OR and other pertinent info. @ -Discharge 63-year-old male presents to the ED with 3 days of upper respiratory symptoms. At this time, labs including CBC and chemistry panel unremarkable. Chest x-ray revealed no evidence of pneumonia or other acute finding. At this time vital signs stable afebrile. Patient discharged home in stable condition. Advised supportive care. Discussed return precautions patient who verbalized agreement. Undiagnosed new problem with uncertain prognosis? @ -No Drug Therapy requiring intensive monitoring for toxicity (Heparin, Nitro, Insulin, Cardizem)? @ -No Were any procedures done? @ -No Diagnosis/symptom? @ -COVID Acute, or Chronic, or Acute on Chronic? @ -Acute Uncomplicated (without systemic symptoms) or Complicated (systemic symptoms)? @ -Uncomplicated Side effects of treatment? @ -No Exacerbation, Progression, or Severe Exacerbation? @ -No Poses a threat to life or bodily function? How? (Chest pain, [place], [place], pneumonia, PE, COPD, DKA, ARF, appy, cholecystitis, CVA, Diverticulitis, Homicidal, Suicidal, threat to staff... and all critical care pts) @ -No (Tomasz Ahuja) - Lab Data Lab Results 10/04/23 10/04/23 Range/Units 23:31 23:31 WBC 9.2 (3.8-10.6) k/uL RBC 4.77 (4.30-5.90) m/uL Hgb 15.8 (13.0-17.5) gm/dL Hct 46.6 (39.0-53.0) % MCV 97.8 (80.0-100.0) fL MCH 33.1 (25.0-35.0) pg MCHC 33.8 (31.0-37.0) g/dL RDW 13.7 (11.5-15.5) % Plt Count 168 (150-450) k/uL MPV 7.5 Neutrophils % 51 % Lymphocytes % 37 % Monocytes % 5 % Eosinophils % 3 % Basophils % 1 % Neutrophils # 4.7 (1.3-7.7) k/uL Lymphocytes # 3.4 (1.0-4.8) k/uL Monocytes # 0.5 (0-1.0) k/uL Eosinophils # 0.3 (0-0.7) k/uL Basophils # 0.1 (0-0.2) k/uL Sodium 143 (137-145) mmol/L Potassium 3.8 (3.5-5.1) mmol/L Chloride 107 (98-107) mmol/L Carbon Dioxide 23 (22-30) mmol/L Anion Gap 13 mmol/L BUN 10 (9-20) mg/dL Creatinine 0.78 (0.66-1.25) mg/dL Est GFR (CKD-EPI)AfAm >90 (>60 ml/min/1.73 sqM) Est GFR (CKD-EPI)NonAf >90 (>60 ml/min/1.73 sqM) Glucose 97 (74-99) mg/dL Calcium 9.0 (8.4-10.2) mg/dL Total Bilirubin 0.7 (0.2-1.3) mg/dL AST 67 H (17-59) U/L ALT 33 (4-49) U/L Alkaline Phosphatase 177 H (38-126) U/L Total Protein 7.6 (6.3-8.2) g/dL Albumin 4.1 (3.5-5.0) g/dL Disposition <Brook Johnson - Last Filed: 10/04/23 22:18> Is patient prescribed a controlled substance at d/c from ED?: No <Tomasz Ahuja - Last Filed: 10/05/23 02:59> Clinical Impression: COVID-19 Disposition: HOME SELF-CARE Condition: Good Additional Instructions: Please return to the Emergency Department if symptoms worsen or any other concerns. Please use [id number] medications as needed for symptomatic management. Prescriptions: Ibuprofen [Motrin] 600 mg PO Q8HR PRN #30 tab PRN Reason: Pain Acetaminophen Tab [Tylenol] 650 mg PO Q6H #30 tab Referrals: Cassandra Blount MD [Primary Care Provider] - 1-2 days
[2023-10-04 23:29] VITALS: PULSE 95
--- NOTE | 2023-10-05 00:05 | XR ---
EXAM: XR Chest, 2 Views CLINICAL HISTORY: ITS.REASON XR Reason: Weakness TECHNIQUE: Frontal and lateral views of the chest. COMPARISON: No relevant prior studies available. FINDINGS: Lungs: Unremarkable. No consolidation. Pleural space: Unremarkable. No pneumothorax. Heart: Unremarkable. No cardiomegaly. Mediastinum: Unremarkable. Normal mediastinal contour. Bones/joints: Anterior and posterior cervical fusion hardware. No acute fracture. IMPRESSION: No acute findings in the chest.
[2023-10-05 00:11] LABS: Basophils # (A) 0.1 k/uL (0-0.2); Basophils % (A) 1 %; Eosinophils # (A) 0.3 k/uL (0-0.7); Eosinophils % (A) 3 %; HCT 46.6 % (39.0-53.0); HGB 15.8 gm/dL (13.0-17.5); Lymphocytes # (A) 3.4 k/uL (1.0-4.8); Lymphocytes % (A) 37 %; MCH 33.1 pg (25.0-35.0); MCHC 33.8 g/dL (31.0-37.0); MCV 97.8 fL (80.0-100.0); Mean Platelet Volume 7.5; Monocytes # (A) 0.5 k/uL (0-1.0); Monocytes % (A) 5 %; Neutrophils # (A) 4.7 k/uL (1.3-7.7); Neutrophils % (A) 51 %; Platelet Count 168 k/uL (150-450); RBC 4.77 m/uL (4.30-5.90); RDW 13.7 % (11.5-15.5); WBC 9.2 k/uL (3.8-10.6)
[2023-10-05 00:28] LABS: ALT 33 U/L (4-49); AST 67 U/L (17-59); African American GFR (CKD) >90 (>60 ml/min/1.73 sqM); Albumin 4.1 g/dL (3.5-5.0); Alkaline Phosphatase 177 U/L (38-126); Anion Gap 13 mmol/L; Blood Urea Nitrogen 10 mg/dL (9-20); Carbon Dioxide 23 mmol/L (22-30); Chloride 107 mmol/L (98-107); Glucose 97 mg/dL (74-99); Non-African American GFR(CKD) >90 (>60 ml/min/1.73 sqM); Potassium 3.8 mmol/L (3.5-5.1); Sodium 143 mmol/L (137-145); Total Bilirubin 0.7 mg/dL (0.2-1.3); Total Protein 7.6 g/dL (6.3-8.2)
[2023-10-05 03:45] VITALS: BP 145/93; RESP 18; TEMP 97
== END 2023-10-05 03:31 | disposition home or self-care (01) ==
LOC: EC 22:12
DX: U07.1 COVID-19 (principal); I10 Essential (primary) hypertension; J45.909 Unspecified asthma, uncomplicated; F17.200 Nicotine dependence, unspecified, uncomplicated; Z91.041 Radiographic dye allergy status
CPT/HCPCS: 36415; 71046; 80053; 85025; 99285

== ENCOUNTER 2024-05-22 08:00 | Emergency (ER) | payer OTHER ==
[2024-05-22 08:16] VITALS: RESP 18
--- NOTE | 2024-05-22 08:34 | ED ---
General Adult HPI - General Chief complaint: Back Pain/Injury Stated complaint: Back pain Time Seen by Provider: 05/22/24 08:15 Source: patient, RN notes reviewed, old records reviewed Mode of arrival: ambulatory Limitations: no limitations - History of Present Illness Initial comments: This is a 64-year-old male who presents to the emergency department stating he has chronic back pain. Patient states he does not have a primary medical care doctor but admits that he has not had a doctor for many months and he has not found a new one as of now. Patient comes in today because he would like some medication to help him sleep at night and he also would like a referral for a physician and he would like us to set up home nursing care for him. Patient denies any new injury patient denies any worsening pain of his back. Patient states everything is status quo. - Related Data Home Medications Medication Instructions Recorded Confirmed Buprenorphine/Naloxone 8Mg/2Mg 1 film SL BID 04/12/23 04/12/23 [Suboxone 8-2Mg Film] Previous Rx's Medication Instructions Recorded Acetaminophen Tab [Tylenol] 650 mg PO Q6H #30 tab 10/05/23 Ibuprofen [Motrin] 600 mg PO Q8HR PRN #30 tab 10/05/23 Ketorolac [Toradol] 10 mg PO Q8HR #15 tab 05/22/24 Allergies Allergy/AdvReac Type Severity Reaction Status Date / Time Iodinated Contrast Media AdvReac Nausea Verified 05/22/24 08:16 [Iodinated Contrast Media - Oral and] Review of Systems ROS Statement: Those systems with pertinent positive or pertinent negative responses have been documented in the HPI. ROS Other: All systems not noted in ROS Statement are negative. Past Medical History Past Medical History: Asthma, GERD/Reflux, Hypertension, Osteoarthritis (OA) Additional Past Medical History / Comment(s): occ high BP-no rx, fx left shouDER, covid 09/29 History of Any Multi-Drug Resistant Organisms: None Reported Past Surgical History: Back Surgery, Hernia Repair, Orthopedic Surgery Additional Past Surgical History / Comment(s): 05/22/16 ORIF L shoulder. Other surgical hx: BACK fusion & neck fusion, carpal tunnel-rt Past Anesthesia/Blood Transfusion Reactions: Motion Sickness Past Psychological History: No Psychological Hx Reported, Depression Smoking Status: Current every day smoker Past Alcohol Use History: Daily, Heavy Past Drug Use History: None Reported - Past Family History Sister(s) Family Medical History: Cancer, Deep Vein Thrombosis (DVT) General Exam - General Exam Comments Initial Comments: GENERAL: Patient is well-developed and well-nourished. Patient is nontoxic and well- hydrated and is in no acute distress. ENT: Neck is soft and supple. No significant lymphadenopathy is noted. Oropharynx is clear. Moist mucous membranes. Neck has full range of motion without eliciting any pain. EYES: The sclera were anicteric and conjunctiva were pink and moist. Extraocular movements were intact and pupils were equal round and reactive to light. Eyelids were unremarkable. SKIN: Skin is clear with no lesions or rashes and otherwise unremarkable. NEUROLOGIC: Patient is alert and oriented x3. Cranial nerves II through XII are grossly intact. Motor and sensory are also intact. Normal speech, volume and content. Symmetrical smile. MUSCULOSKELETAL: Normal extremities with adequate strength and full range of motion. LYMPHATICS: No significant lymphadenopathy is noted PSYCHIATRIC: Normal psychiatric evaluation. Limitations: no limitations Course Vital Signs 05/22/24 08:13 Temperature 97.7 F Pulse Rate 85 Respiratory 18 Rate Blood Pressure 131/90 O2 Sat by Pulse 98 Oximetry Medical Decision Making - Medical Decision Making Was pt. sent in by a medical professional or institution (, PA, PHOTO MANAGER, urgent care, hospital, or penitentiary...) When possible be specific @ -No Did you speak to anyone other than the patient for history (EMS, parent, family, police, friend...)? What history was obtained from this source @ -No Did you review nursing and triage notes (agree or disagree)? Why? @ -I reviewed and agree with nursing and triage notes Were old charts reviewed (outside hosp., previous admission, EMS record, old EKG, old radiological studies, urgent care reports/EKG's, penitentiary records)? Report findings @ -No old charts were reviewed Differential Diagnosis? @ -Differential Musculoskeletal Muscular strain, contusion, ligament sprain, fracture, arthritis, septic arthritis, bursitis, cellulitis, muscle spasm, nerve compression, DVT, arterial occlusion, herpes zoster, electrolyte abnormality, tumor.... This is not meant to be in all inclusive list EKG interpreted by me (3pts min.). @ -None X-rays interpreted by me (1pt min.). @ -None done CT interpreted by me (1pt min.). @ -None done U/S interpreted by me (1pt. min.). @ -None done What testing was considered but not performed or refused? (CT, X-rays, U/S, la bs)? Why? @ -None What meds were considered but not given or refused? Why? @ -None Did you discuss the management of the patient with other professionals (professionals i.e. DrKavon, PA, PHOTO MANAGER, lab, RT, psych nurse, health social work professor, enrollment representative, teacher, unemployment insurance hearing officer, case finisher)? Give summary @ -No Was smoking cessation discussed for >3mins.? @ -No Was critical care preformed (if so, how long)? @ -No Were there social determinants of health that impacted care today? How? (Homelessness, low income, unemployed, alcoholism, drug addiction, transportation, low edu. Level, literacy, decrease access to med. care, [facility], rehab)? @ -No Was there de-escalation of care discussed even if they declined (Discuss DNR or withdrawal of care, Hospice)? DNR status @ -No What co-morbidities impacted this encounter? (DM, HTN, Smoking, COPD, CAD, Cancer, CVA, ARF, Chemo, Hep., AIDS, mental health diagnosis, sleep apnea, morbid obesity)? @ -None Was patient admitted / discharged? Hospital course, mention meds given and route, prescriptions, significant lab abnormalities, going to OR and other pertinent info. @ -I offered the patient pain medication he refused it. Patient states he just wants something for nighttime when he goes to bed. I told the patient I do not set up home health care and he needs to get a private doctor and he is in agreement with that he will be given a list of physicians that he can follow-up with Undiagnosed new problem with uncertain prognosis? @ -No Drug Therapy requiring intensive monitoring for toxicity (Heparin, Nitro, Insulin, Cardizem)? @ -No Were any procedures done? @ -No Diagnosis/symptom? @ -Chronic back pain Acute, or Chronic, or Acute on Chronic? @ -Chronic Uncomplicated (without systemic symptoms) or Complicated (systemic symptoms)? @ -Uncomplicated Side effects of treatment? @ -No Exacerbation, Progression, or Severe Exacerbation? @ -No Poses a threat to life or bodily function? How? (Chest pain, [place], [place], pneumonia, PE, COPD, DKA, ARF, appy, cholecystitis, CVA, Diverticulitis, Homicidal, Suicidal, threat to staff... and all critical care pts) @ -No Disposition Clinical Impression: Chronic back pain Disposition: HOME SELF-CARE Condition: Good Instructions (If sedation given, give patient instructions): Chronic Back Pain (DC) Prescriptions: Ketorolac [Toradol] 10 mg PO Q8HR #15 tab Is patient prescribed a controlled substance at d/c from ED?: No Referrals: None,Stated [Primary Care Provider] - 1-2 days Time of Disposition: 08:33
[2024-05-22 08:41] VITALS: BP 126/88; PULSE 80; TEMP 98
== END 2024-05-22 08:43 | disposition home or self-care (01) ==
LOC: EC 08:00
CPT/HCPCS: 99283

== ENCOUNTER 2024-09-18 14:52 | Emergency (ER) | payer OTHER ==
--- NOTE | 2024-09-18 15:44 | ED ---
General Adult HPI - General Chief complaint: Urogenital Stated complaint: swollen testicals Time Seen by Provider: 09/18/24 15:09 Source: patient, RN notes reviewed Mode of arrival: wheelchair Limitations: no limitations - History of Present Illness Initial comments: 64-year-old male presents to the emergency department for evaluation of scrotal swelling. Patient reports that this has been ongoing for multiple months. He states that 4 days ago he noticed a lump in his left testicle and started experiencing pain on. He reports the pain radiates into the groin on both sides. He denies recent fever. He reports he had a normal bowel movement this morning. Patient states that he was supposed to have a procedure for repeat testicular swelling 2 months ago but missed it due to a family matter. - Related Data Home Medications Medication Instructions Recorded Confirmed Buprenorphine/Naloxone 8Mg/2Mg 1 film SL BID 04/12/23 04/12/23 [Suboxone 8-2Mg Film] Previous Rx's Medication Instructions Recorded Acetaminophen Tab [Tylenol] 650 mg PO Q6H #30 tab 10/05/23 Ibuprofen [Motrin] 600 mg PO Q8HR PRN #30 tab 10/05/23 Ketorolac [Toradol] 10 mg PO Q8HR #15 tab 05/22/24 Levofloxacin [Levaquin] 500 mg PO DAILY 14 Days #14 tab 09/18/24 Allergies Allergy/AdvReac Type Severity Reaction Status Date / Time Iodinated Contrast Media AdvReac Nausea Verified 09/18/24 14:54 [Iodinated Contrast Media - Oral and] Review of Systems ROS Statement: Those systems with pertinent positive or pertinent negative responses have been documented in the HPI. ROS Other: All systems not noted in ROS Statement are negative. Past Medical History Past Medical History: Asthma, GERD/Reflux, Hypertension, Osteoarthritis (OA) Additional Past Medical History / Comment(s): occ high BP-no rx, fx left shouDER, covid 09/29 History of Any Multi-Drug Resistant Organisms: None Reported Past Surgical History: Back Surgery, Hernia Repair, Orthopedic Surgery Additional Past Surgical History / Comment(s): 05/22/16 ORIF L shoulder. Other surgical hx: BACK fusion & neck fusion, carpal tunnel-rt Past Anesthesia/Blood Transfusion Reactions: Motion Sickness Past Psychological History: No Psychological Hx Reported, Depression Smoking Status: Current every day smoker Past Alcohol Use History: Daily, Heavy Past Drug Use History: None Reported - Past Family History Sister(s) Family Medical History: Cancer, Deep Vein Thrombosis (DVT) General Exam Limitations: no limitations General appearance: alert, in no apparent distress Head exam: Present: atraumatic, normocephalic, normal inspection Eye exam: Present: normal appearance, PERRL, EOMI. Absent: scleral icterus, conjunctival injection, periorbital swelling Respiratory exam: Present: normal lung sounds bilaterally. Absent: respiratory distress, wheezes, rales, rhonchi, stridor Cardiovascular Exam: Present: regular rate, normal rhythm, normal heart sounds. Absent: systolic murmur, diastolic murmur, rubs, gallop, clicks GI/Abdominal exam: Present: soft, normal bowel sounds. Absent: distended, tenderness, guarding, rebound, rigid exam: Present: testicular tenderness, scrotal swelling. Absent: vertical testicular lie Extremities exam: Present: normal inspection, full ROM, normal capillary refill. Absent: tenderness, pedal edema, joint swelling, calf tenderness Neurological exam: Present: alert, oriented X3 Psychiatric exam: Present: normal affect, normal mood Skin exam: Present: warm, dry, intact, normal color. Absent: rash Course Vital Signs 09/18/24 09/18/24 09/18/24 14:55 17:32 19:01 Temperature 98.2 F 98.4 F 98.3 F Pulse Rate 110 H 101 H 110 H Respiratory 20 18 18 Rate Blood Pressure 146/72 144/87 151/82 O2 Sat by Pulse 94 L 94 L 94 L Oximetry Medical Decision Making - Medical Decision Making Was pt. sent in by a medical professional or institution (, PA, STOCK TAKER, urgent care, hospital, or detention...) When possible be specific @ -[No] Did you speak to anyone other than the patient for history (EMS, parent, family, police, friend...)? What history was obtained from this source @ -[No] Did you review nursing and triage notes (agree or disagree)? Why? @ -[I reviewed and agree with nursing and triage notes] Were old charts reviewed (outside hosp., previous admission, EMS record, old EKG, old radiological studies, urgent care reports/EKG's, detention records)? Report findings @ -[No old charts were reviewed] Differential Diagnosis (chest pain, altered mental status, abdominal pain women, abdominal pain men, vaginal bleeding, weakness, fever, dyspnea, syncope, headache, dizziness, GI bleed, back pain, seizure, CVA, palpatations, mental health, musculoskeletal)? @ -[Hydroceles, epididymitis, orchitis, UTI, STD, this is not inclusive] EKG interpreted by me (3pts min.). @ -[none] X-rays interpreted by me (1pt min.). @ -[None done] CT interpreted by me (1pt min.). @ -[None done] U/S interpreted by me (1pt. min.). @ -[Scrotal ultrasound shows large hydroceles bilaterally, no evidence of testicular torsion, cystic lesion on the left epididymal region] What testing was considered but not performed or refused? (CT, X-rays, U/S, labs)? Why? @ -[None] What meds were considered but not given or refused? Why? @ -[None] Did you discuss the management of the patient with other professionals (professionals i.e. , PA, STOCK TAKER, lab, RT, psych nurse, oncology social work, snout puller, teacher, credit risk review officer, case maker)? Give summary @ -[No] Was smoking cessation discussed for >3mins.? @ -[No] Was critical care preformed (if so, how long)? @ -[No] Were there social determinants of health that impacted care today? How? (Homelessness, low income, unemployed, alcoholism, drug addiction, transportation, low edu. Level, literacy, decrease access to med. care, fpc, rehab)? @ -[No] Was there de-escalation of care discussed even if they declined (Discuss DNR or withdrawal of care, Hospice)? DNR status @ -[No] What co-morbidities impacted this encounter? (DM, HTN, Smoking, COPD, CAD, Cancer, CVA, ARF, Chemo, Hep., AIDS, mental health diagnosis, sleep apnea, morbid obesity)? @ -[None] Was patient admitted / discharged? Hospital course, mention meds given and route, prescriptions, significant lab abnormalities, going to OR and other pertinent info. @ -[Discharge.] Undiagnosed new problem with uncertain prognosis? @ -[No] Drug Therapy requiring intensive monitoring for toxicity (Heparin, Nitro, Ins ulin, Cardizem)? @ -[No] Were any procedures done? @ -[No] Diagnosis/symptom? @ -[UTI, epididymitis] Acute, or Chronic, or Acute on Chronic? @ -Acute Uncomplicated (without systemic symptoms) or Complicated (systemic symptoms)? @ -Uncomplicated Side effects of treatment? @ -[No] Exacerbation, Progression, or Severe Exacerbation? @ -[No] Poses a threat to life or bodily function? How? (Chest pain, [place], [place], pneumonia, PE, COPD, DKA, ARF, appy, cholecystitis, CVA, Diverticulitis, Homicidal, Suicidal, threat to staff... and all critical care pts) @ -[No] - Lab Data Result diagrams: 09/18/24 17:08 09/18/24 17:08 Lab Results 09/18/24 09/18/24 09/18/24 Range/Units 16:20 17:08 17:08 WBC 16.7 H (3.8-10.6) k/uL RBC 4.14 L (4.30-5.90) m/uL Hgb 12.9 L (13.0-17.5) gm/dL Hct 38.3 L (39.0-53.0) % MCV 92.4 (80.0-100.0) fL MCH 31.2 (25.0-35.0) pg MCHC 33.8 (31.0-37.0) g/dL RDW 13.1 (11.5-15.5) % Plt Count 334 (150-450) k/uL MPV 7.1 Neutrophils % 73 % Lymphocytes % 18 % Monocytes % 5 % Eosinophils % 2 % Basophils % 0 % Neutrophils # 12.1 H (1.3-7.7) k/uL Lymphocytes # 2.9 (1.0-4.8) k/uL Monocytes # 0.9 (0-1.0) k/uL Eosinophils # 0.4 (0-0.7) k/uL Basophils # 0.1 (0-0.2) k/uL Sodium 140 (137-145) mmol/L Potassium 3.7 (3.5-5.1) mmol/L Chloride 102 (98-107) mmol/L Carbon Dioxide 31 H (22-30) mmol/L Anion Gap 7 mmol/L BUN 13 (9-20) mg/dL Creatinine 0.71 (0.66-1.25) mg/dL Est GFR (CKD-EPI)AfAm >90 (>60 ml/min/1.73 sqM) Est GFR (CKD-EPI)NonAf >90 (>60 ml/min/1.73 sqM) Glucose 103 H (74-99) mg/dL Lactic Ac Sepsis Rflx Plasma Lactic Acid Ángel (0.7-2.0) mmol/L Calcium 9.7 (8.4-10.2) mg/dL Total Bilirubin 0.5 (0.2-1.3) mg/dL AST 35 (17-59) U/L ALT 19 (4-49) U/L Alkaline Phosphatase 111 (38-126) U/L Total Protein 6.9 (6.3-8.2) g/dL Albumin 3.6 (3.5-5.0) g/dL Urine Color Yellow Urine Appearance Turbid (Clear) Urine pH 6.0 (5.0-8.0) Ur Specific [place] 1.022 (1.001-1.035) Urine Protein 2+ H (Negative) Urine Glucose (UA) Negative (Negative) Urine Ketones Negative (Negative) Urine Blood Moderate H (Negative) Urine Nitrite Negative (Negative) Urine Bilirubin 1+ H (Negative) Urine Urobilinogen 4.0 (<2.0) mg/dL Ur Leukocyte Esterase Large H (Negative) Urine RBC 12 H (0-5) /hpf Urine WBC >182 H (0-5) /hpf Urine WBC Clumps Many H (None) /hpf Urine Bacteria Moderate H (None) /hpf Urine Mucus Occasional H (None) /hpf 09/18/24 09/18/24 Range/Units 17:08 17:49 WBC (3.8-10.6) k/uL RBC (4.30-5.90) m/uL Hgb (13.0-17.5) gm/dL Hct (39.0-53.0) % MCV (80.0-100.0) fL MCH (25.0-35.0) pg MCHC (31.0-37.0) g/dL RDW (11.5-15.5) % Plt Count (150-450) k/uL MPV Neutrophils % % Lymphocytes % % Monocytes % % Eosinophils % % Basophils % % Neutrophils # (1.3-7.7) k/uL Lymphocytes # (1.0-4.8) k/uL Monocytes # (0-1.0) k/uL Eosinophils # (0-0.7) k/uL Basophils # (0-0.2) k/uL Sodium (137-145) mmol/L Potassium (3.5-5.1) mmol/L Chloride (98-107) mmol/L Carbon Dioxide (22-30) mmol/L Anion Gap mmol/L BUN (9-20) mg/dL Creatinine (0.66-1.25) mg/dL Est GFR (CKD-EPI)AfAm (>60 ml/min/1.73 sqM) Est GFR (CKD-EPI)NonAf (>60 ml/min/1.73 sqM) Glucose (74-99) mg/dL Lactic Ac Sepsis Rflx Y Plasma Lactic Acid Ángel 2.1 H* (0.7-2.0) mmol/L Calcium (8.4-10.2) mg/dL Total Bilirubin (0.2-1.3) mg/dL AST (17-59) U/L ALT (4-49) U/L Alkaline Phosphatase (38-126) U/L Total Protein (6.3-8.2) g/dL Albumin (3.5-5.0) g/dL Urine Color Urine Appearance (Clear) Urine pH (5.0-8.0) Ur Specific [place] (1.001-1.035) Urine Protein (Negative) Urine Glucose (UA) (Negative) Urine Ketones (Negative) Urine Blood (Negative) Urine Nitrite (Negative) Urine Bilirubin (Negative) Urine Urobilinogen (<2.0) mg/dL Ur Leukocyte Esterase (Negative) Urine RBC (0-5) /hpf Urine WBC (0-5) /hpf Urine WBC Clumps (None) /hpf Urine Bacteria (None) /hpf Urine Mucus (None) /hpf Disposition Clinical Impression: Epididymitis Disposition: HOME SELF-CARE Condition: Stable Instructions (If sedation given, give patient instructions): Urinary Tract Infection in Men (ED) Additional Instructions: Please pickle pumper antibiotics and take to completion. Follow up with urology. Return to the emergency department for new or worsening symptoms. Prescriptions: Levofloxacin [Levaquin] 500 mg PO DAILY 14 Days #14 tab Is patient prescribed a controlled substance at d/c from ED?: No Referrals: None,Stated [Primary Care Provider] - 1-2 days Victor Hugo Reynoso MD [STAFF PHYSICIAN] - 1-2 days
[2024-09-18] MEDS: KETOROLAC 15 MG/ML 1 ML VIAL IM STA (16:18)
--- NOTE | 2024-09-18 16:18 | US ---
EXAMINATION TYPE: US scrotum with doppler. DATE OF EXAM: 09/18/2024 COMPARISON: 04/12/2023 CLINICAL INDICATION: Male, 64 years old with history of pain; Swelling x 3-4 months, patient was supp ose to have procedure to remove fluid; Patient states new lump left side x 3-4 days TECHNIQUE: Grayscale, color Doppler and spectral Doppler imaging of the scrotum. FINDINGS: EXAM MEASUREMENTS: TESTICLES: Right Testicle: 3.8 x 2.4 x 2.4 cm Left Testicle: 4.5 x 2.2 x 2.8 cm EPIDIDYMIS HEAD: Right Epididymis: 1.5 x 1.4 x 1.9 cm Left Epididymis: 1.8 x 1.2 x 1.5 cm Doppler performed to assess for testicular vascularity; good bilateral color flow and spectral wavefo alyssa are seen. There is no evidence of testicular torsion. Presence of hydroceles: Large Bilateral Presence of varicoceles: ? Left Cystic structures seen within left epididymal area IMPRESSION: 1. Large bilateral hydroceles. 2. No suspicious changes to suggest torsion [facility], , 09/18/2024 4:16 PM
[2024-09-18 16:41] LABS: Appearance,Urine Turbid (Clear); Bacteria,Urine Moderate /hpf; Bilirubin,Urine 1+ (Negative); Blood,Urine Moderate (Negative); Color,Urine Yellow; Glucose,Urine (UA) Negative (Negative); Ketones,Urine Negative (Negative); Leukocyte Esterase,Urine Large (Negative); Mucus,Urine Occasional /hpf; Nitrite,Urine Negative (Negative); Protein,Urine 2+ (Negative); RBC,Urine 12 /hpf (0-5); Specific Gravity,Urine 1.022 (1.001-1.035); WBC,Urine >182 /hpf (0-5)
[2024-09-18 17:16] LABS: Basophils # (A) 0.1 k/uL (0-0.2); Basophils % (A) 0 %; Eosinophils # (A) 0.4 k/uL (0-0.7); Eosinophils % (A) 2 %; HCT 38.3 % (39.0-53.0); HGB 12.9 gm/dL (13.0-17.5); Lymphocytes # (A) 2.9 k/uL (1.0-4.8); Lymphocytes % (A) 18 %; MCH 31.2 pg (25.0-35.0); MCHC 33.8 g/dL (31.0-37.0); MCV 92.4 fL (80.0-100.0); Mean Platelet Volume 7.1; Monocytes # (A) 0.9 k/uL (0-1.0); Monocytes % (A) 5 %; Neutrophils # (A) 12.1 k/uL (1.3-7.7); Neutrophils % (A) 73 %; Platelet Count 334 k/uL (150-450); RBC 4.14 m/uL (4.30-5.90); RDW 13.1 % (11.5-15.5); WBC 16.7 k/uL (3.8-10.6)
[2024-09-18 17:33] VITALS: RESP 18
[2024-09-18 17:36] LABS: ALT 19 U/L (4-49); AST 35 U/L (17-59); African American GFR (CKD) >90 (>60 ml/min/1.73 sqM); Albumin 3.6 g/dL (3.5-5.0); Alkaline Phosphatase 111 U/L (38-126); Anion Gap 7 mmol/L; Blood Urea Nitrogen 13 mg/dL (9-20); Calcium 9.7 mg/dL (8.4-10.2); Carbon Dioxide 31 mmol/L (22-30); Chloride 102 mmol/L (98-107); Glucose 103 mg/dL (74-99); Non-African American GFR(CKD) >90 (>60 ml/min/1.73 sqM); Potassium 3.7 mmol/L (3.5-5.1); Sodium 140 mmol/L (137-145); Total Bilirubin 0.5 mg/dL (0.2-1.3); Total Protein 6.9 g/dL (6.3-8.2)
[2024-09-18] MEDS: SODIUM CHLORIDE 0.9% 1,000 ML IV ONE (17:40)
[2024-09-18 19:02] VITALS: BP 151/82; PULSE 110; TEMP 98.3
[2024-09-18] MEDS: IBUPROFEN 600 MG STARTER PACK 4 TAB BTL PO STA (19:08)
[2024-09-18] MEDS: ACET/COD 300 MG/30 MG STARTER PACK 6 TAB BTL PO STA (19:08)
== END 2024-09-18 19:01 | disposition home or self-care (01) ==
LOC: EC 14:52
DX: N45.1 Epididymitis (principal); F17.200 Nicotine dependence, unspecified, uncomplicated; Z91.041 Radiographic dye allergy status
CPT/HCPCS: 36415; 80053; 83605; 85025; 81001; 87040; 87086; 93975; 76870; 99284; 96372; 96365; J0696; J1885; 87077; 87186

== ENCOUNTER → 2024-10-30 | Outpatient (CLI) | payer MEDICARE, OTHER ==
[2024-10-30 15:05] LABS: Basophils # (A) 0.06 X 10*3/uL (0.00-0.10); Basophils % (A) 0.7 %; Eosinophils # (A) 0.21 X 10*3/uL (0.04-0.35); Eosinophils % (A) 2.6 %; HCT 44.6 % (39.6-50.0); HGB 14.3 g/dL (13.0-17.0); Lymphocytes # (A) 2.45 X 10*3/uL (0.90-5.00); Lymphocytes % (A) 29.9 %; MCH 31.6 pg (27.0-32.0); MCHC 32.1 g/dL (32.0-37.0); MCV 98.5 FL (80.0-97.0); Mean Platelet Volume 10.2 FL (9.5-12.2); Monocytes # (A) 0.96 X 10*3/uL (0.20-1.00); Monocytes % (A) 11.7 %; NRBC Per 100 WBC 0 X 10*3/uL (0.00-0.01); Neutrophils # (A) 4.49 X 10*3/uL (1.80-7.70); Neutrophils % (A) 54.7 %; Platelet Count 189 X 10*3/uL (140-440); RBC 4.53 X 10*6/uL (4.40-5.60); RDW 14.8 % (11.5-14.5)
[2024-10-30 15:49] LABS: Blood Urea Nitrogen 7.6 mg/dL (9.0-27.0); Calcium 9.4 mg/dL (8.7-10.3); Carbon Dioxide 25.1 mmol/L (21.6-31.8); Chloride 104 mmol/L (96-109); Glucose 92 mg/dL (70-110); Potassium 3.9 mmol/L (3.5-5.5); Sodium 143 mmol/L (135-145)
== END | disposition home or self-care (01) ==
LOC: LABPAT 08:48
PROVIDERS: ATTEND Urology
DX: Z01.812 Encounter for preprocedural laboratory examination (principal); N43.3 Hydrocele, unspecified
CPT/HCPCS: 36415; 80048; 85025

== ENCOUNTER 2024-10-31 10:14 | Day surgery (SDC) | payer MEDICARE, OTHER ==
--- NOTE | 2024-10-31 07:51 | P.HPIHPCON ---
History of Present Illness H&P Date: 10/31/24 Chief Complaint: Right hydrocele This is a 64-year-old male with a history of a large right-sided hydrocele, he is symptomatic from his hydrocele. Option of a right-sided hydrocelectomy was discussed. He is aware of the risk which include but not limited to bleeding, infection, injury to the testicle. Risk of recurrence was also discussed Consent for Procedure: I have explained the operation/procedure to the patient, including the risks, benefits, side effects, alternative therapies (including not receiving the proposed treatment or service), the likelihood of the patient achieving his/her goals, and potential recuperation problems for the procedure/sedation/analgesia, as well as any blood products, if indicated. I also explained to the patient the risks, benefits and side effects of the alternatives, as well as the risks related to not receiving the proposed procedure, care, treatment, or services. Past Medical History Past Medical History: Asthma, GERD/Reflux, Hypertension, Osteoarthritis (OA) Additional Past Medical History / Comment(s): occ high BP-no rx, fx left shouDER, covid 09/29, hydrocele History of Any Multi-Drug Resistant Organisms: None Reported Past Surgical History: Back Surgery, Hernia Repair, Orthopedic Surgery Additional Past Surgical History / Comment(s): 05/22/16 ORIF L shoulder. Other surgical hx: BACK fusion & neck fusion, carpal tunnel-rt Past Anesthesia/Blood Transfusion Reactions: Motion Sickness Smoking Status: Current every day smoker - Past Family History Sister(s) Family Medical History: Cancer, Deep Vein Thrombosis (DVT) Medications and Allergies Allergies Allergy/AdvReac Type Severity Reaction Status Date / Time Iodinated Contrast Media AdvReac Nausea Verified 10/26/24 15:23 [Iodinated Contrast Media - Oral and] Surgical - Exam - General no distress, moderate pain - Eyes normal ocular movement, no pale - ENT normal nares, normal mucosa - Respiratory normal expansion, normal respiratory effort - Abdomen Abdomen: soft, non tender - Genitourinary Large right-sided hydrocele Assessment and Plan Assessment: OR for right-sided hydrocelectomy
[~2024-10-31 10:14] MED LIST: HYDROmorphone 0.5 MG/0.5 ML SYRINGE IVP PRN
[2024-10-31] MEDS: IV FLUID CONTINUATION 1,000 ML IV ONE (12:03)
[2024-10-31] MEDS: LACTATED RINGERS 1,000 ML IV SCH (12:03)
[2024-10-31] MEDS: ONDANSETRON 4 MG/2 ML VIAL IVP ONE (12:06)
[2024-10-31] MEDS: DEXAMETHASONE SOD PHOSPHATE 4 MG/ML 1 ML VIAL IV ONE (12:06)
[2024-10-31] MEDS ORDERED: SUCCINYLCHOLINE CHLORIDE 200 MG/10 ML VIAL IV ONE (13:45)
[2024-10-31] MEDS ORDERED: LIDOCAINE 1% INJ 10MG/ML (20 ML MDV) ONE (13:45)
[2024-10-31] MEDS ORDERED: PROPOFOL 10 MG/ML 20 ML VIAL IV ONE (13:45)
[2024-10-31] MEDS ORDERED: fentaNYL (PF) 50 MCG/ML 2 ML AMP ONE (13:45)
[2024-10-31] MEDS ORDERED: PHENYLEPHRINE-0.9% NACL SYG 1,000 MCG/10 ML SYRINGE ONE (13:45)
[2024-10-31] MEDS ORDERED: MIDAZOLAM 2 MG/2 ML VIAL ONE (13:45)
[2024-10-31] MEDS: BUPIVACAINE (PF) 0.5% 30 ML VIAL SQ ONE (14:08)
--- NOTE | 2024-10-31 14:48 | P.OP ---
Date of Procedure: 10/31/24 Preoperative Diagnosis: Right hydrocele Postoperative Diagnosis: Same Procedure(s) Performed: Right hydrocelectomy Anesthesia: FRANKYA Surgeon: Victor Hugo Reynoso Estimated Blood Loss (ml): 10 Pathology: other (Hydrocele sac) Condition: stable Disposition: PACU Indications for Procedure: This is a 64-year-old male with a history of a large right-sided hydrocele, he is symptomatic from his hydrocele. Option of a right-sided hydrocelectomy was discussed. He is aware of the risk which include but not limited to bleeding, infection, injury to the testicle. Risk of recurrence was also discussed Operative Findings: Large right hydrocele Description of Procedure: Patient brought the operating, general anesthesia was induced. He was prepped and draped in sterile fashion placed in supine position. Next an incision was made along the right hemiscrotum using a scalpel. Dartos fascia was dissected down using electrocautery. At this point the hydrocele sac was encountered, the hydrocele sac was completely dissected out of the scrotal cavity and taken out of this scrotal cavity. Next a small incision was made in the hydrocele sac and the hydrocele sac was drained. The hydrocele sac was completely excised and sent to pathology. The edges of the hydrocele sac was cauterized, point of bleeding was controlled with cautery. At this time the testicle was returned back to the scrotal cavity normal with normal anatomical leg. Dartos fascia was closed using 2-0 Vicryl. Skin was closed using 4-0 Monocryl. Skin glue was applied to the incision. Patient tolerated procedure was taken to recovery in stable condition
[2024-10-31 14:54] VITALS: TEMP 97.8
[2024-10-31] MEDS: HYDROcodone/APAP 5-325MG 1 EACH TAB PO STA (15:30)
[2024-10-31 15:42] VITALS: RESP 20
[2024-10-31 15:43] VITALS: BP 152/88; PULSE 89
== END 2024-10-31 16:20 | disposition home or self-care (01) ==
LOC: OR 10:14
PROVIDERS: ATTEND Urology
DX: N43.3 Hydrocele, unspecified (principal); K21.9 Gastro-esophageal reflux disease without esophagitis; J45.909 Unspecified asthma, uncomplicated; I10 Essential (primary) hypertension; M19.90 Unspecified osteoarthritis, unspecified site; F17.210 Nicotine dependence, cigarettes, uncomplicated; Z98.890 Other specified postprocedural states; Z90.89 Acquired absence of other organs; Z91.041 Radiographic dye allergy status; Z79.899 Other long term (current) drug therapy
CPT/HCPCS: 55040; 88302; J2250; J0330; J1100; J0690; J2405; J2003; J3010; J2704; J2371; J0665

== ENCOUNTER 2025-03-03 19:33 | Emergency (ER) | payer MEDICARE, OTHER ==
[2025-03-03 19:42] VITALS: TEMP 97.8
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
[2025-03-03] MEDS: Acetaminophen-Codeine 300-30mg TAB PO STA (20:38)
--- NOTE | 2025-03-03 20:57 | CT ---
EXAMINATION TYPE: CT brain cspine wo con, CT facial bones wo con CT DLP: 794.3 (accession [id number]), 341.1 (accession [id number]) mGycm, Automated exposure control for dose reduction was used. DATE OF EXAM: 03/03/2025 8:39 PM COMPARISON: CT brain C-spine facial bones 05/03/2022, CT brain C-spine 02/02/2025 CLINICAL INDICATION:Male, 65 years old with history of fall; pt fell 3 days ago, pain between eyes, m igraines TECHNIQUE: Brain: Multiple axial CT images of the brain were obtained without IV contrast. Cspine: Axial CT images from the skull base to the inferior aspect of T2 we obtained without intraven ous contrast. Coronal and sagittal reformatted images were also reviewed. Facial bones; axial CT images of the facial bones were obtained without contrast and soft tissue and bone windows. Coronal and sagittal reformatted images were also reviewed. FINDINGS: Brain: Extra-axial spaces: No abnormal extra-axial fluid collections. Ventricular system: Within normal limits Cerebral parenchyma: No acute intraparenchymal hemorrhage or mass effect. The mane-white junction is well differentiated. Scattered hypoattenuating areas are seen within the periventricular white matte r. Cerebellum: Unremarkable. Mass effect: No evidence of midline shift. Intracranial vasculature: Atherosclerotic calcifications of the intracranial vessels. Calvarium: No depressed skull fracture. Mastoid air cells: Clear. Visualized orbits: Orbital contents are intact. Cervical spine: Fracture: None. Osseous structures: Extensive postsurgical changes from anterior cervical fusion with corpectomy hard chambers extending from C3 through C7. Posterior cervical decompression changes with bilateral pedicular screws and laminectomy changes involving C3-C7. Hardware appears intact with appropriate alignment. F usion of the bilateral facet joints from C3 through C7. Degenerative changes with subchondral cystic changes involving the bilateral C1 articulation with the lateral masses. Vertebral alignment: Within normal limits. Spinal canal/Neural Foramina: Moderate spinal canal stenosis at C2-C3 redemonstrated. Facet joint unc overtebral joint arthropathy scattered throughout the cervical spine with varying degrees of neural f oraminal stenosis. Neck soft tissues: Prevertebral soft tissues are within normal limits. Bilateral carotid bulb calcifi cations. Other: The airway is patent. Mild centrilobular emphysematous changes. Facial Bones: There is no evidence of fracture, subluxation, dislocation, or significant soft tissue swelling. The orbital contents are unremarkable. The temporal-mandibular joints appear symmetric. Mild mucosal thic kening of the ethmoid sinuses. Minimal mucosal thickening of the inferior bilateral frontal sinuses. Sphenoid sinuses are clear. Moderate mucosal thickening of the left sphenoid sinus with air-fluid lev el. Near-complete opacification of the right maxillary sinus. IMPRESSION: 1. No acute intracranial process. 2. Nonspecific minimal white matter changes, likely secondary to chronic small vessel ischemic disea se. 3. No acute facial bone fracture. 4. Paranasal sinus disease redemonstrated. Air-fluid level within the left maxillary sinus. Correlat e for acute sinusitis. 5. No evidence of cervical spine fracture. 6. Extensive postsurgical changes of the cervical spine are redemonstrated. Hardware appears intact. [facility], , 03/03/2025 8:55 PM
[2025-03-03] MEDS: LORATADINE-PSEUDOEPH 5-120 MG 1 EACH TAB.ER.12H PO STA (21:37)
[2025-03-03 21:39] VITALS: BP 132/77; PULSE 89; RESP 16
== END 2025-03-03 21:45 | disposition home or self-care (01) ==
LOC: EC 19:33
DX: R51.9 Headache, unspecified (principal); J32.9 Chronic sinusitis, unspecified; F17.200 Nicotine dependence, unspecified, uncomplicated; Z91.041 Radiographic dye allergy status
CPT/HCPCS: 70450; 70486; 72125; 99283

== ENCOUNTER 2025-03-11 20:12 | Observation (INO) | payer MEDICARE, OTHER ==
--- NOTE | 2025-03-11 20:40 | ED ---
Extremity Problem HPI - General Chief complaint: Extremity Problem,Nontraumatic Stated complaint: R ankle swelling Time Seen by Provider: 03/11/25 20:39 Source: patient, RN notes reviewed, old records reviewed Mode of arrival: wheelchair Limitations: no limitations - History of Present Illness Initial comments: This is a 65-year-old male to the ER for evaluation this patient presents today for evaluation regards to presumed alcohol intoxication as he is well-known to the emergency room but he is complaining of lower extremity edema and swelling MD Complaint: extremity pain, extremity swelling -: days(s) Location: bilateral lower extremity History of Same: Yes -: Yes myalgia, Yes arthralgia Radiation: none Severity scale (1-10): 6 Consistency: constant Improves with: nothing Worsens with: nothing Associated Symptoms: chest pain, shortness of breath, myalgias, arthralgias - Related Data Previous Rx's Medication Instructions Recorded Apixaban [Eliquis Starter Pack 5 - 10 mg PO DIRECTED 30 Days 03/13/25 (for VTE)] #1 each HYDROcodone/APAP 5-325MG [[place] 1 tab PO Q8H PRN #6 tab 03/13/25 5-325] Allergies Allergy/AdvReac Type Severity Reaction Status Date / Time Iodinated Contrast Media AdvReac Nausea Verified 03/12/25 08:27 [Iodinated Contrast Media - Oral and] Review of Systems ROS Statement: Those systems with pertinent positive or pertinent negative responses have been documented in the HPI. ROS Other: All systems not noted in ROS Statement are negative. Past Medical History Past Medical History: Asthma, GERD/Reflux, Hypertension, Osteoarthritis (OA) Additional Past Medical History / Comment(s): occ high BP-no rx, fx left shouDER, covid 09/29, hydrocele History of Any Multi-Drug Resistant Organisms: None Reported Past Surgical History: Back Surgery, Hernia Repair, Orthopedic Surgery Additional Past Surgical History / Comment(s): 05/22/16 ORIF L shoulder. Other surgical hx: BACK fusion & neck fusion, carpal tunnel-rt Past Anesthesia/Blood Transfusion Reactions: Motion Sickness Past Psychological History: No Psychological Hx Reported Smoking Status: Current every day smoker Past Alcohol Use History: Abuse, Daily, Heavy Past Drug Use History: None Reported - Past Family History Sister(s) Family Medical History: Cancer, Deep Vein Thrombosis (DVT) General Exam Limitations: no limitations General appearance: alert, in no apparent distress Head exam: Present: atraumatic, normocephalic, normal inspection Eye exam: Present: normal appearance, PERRL, EOMI. Absent: scleral icterus, conjunctival injection, periorbital swelling ENT exam: Present: normal exam, mucous membranes moist Neck exam: Present: normal inspection. Absent: tenderness, meningismus, lymphadenopathy Respiratory exam: Present: normal lung sounds bilaterally. Absent: respiratory distress, wheezes, rales, rhonchi, stridor Cardiovascular Exam: Present: regular rate, normal rhythm, normal heart sounds. Absent: systolic murmur, diastolic murmur, rubs, gallop, clicks GI/Abdominal exam: Present: soft, normal bowel sounds. Absent: distended, tenderness, guarding, rebound, rigid Extremities exam: Present: normal inspection, full ROM, normal capillary refill. Absent: tenderness, pedal edema, joint swelling, calf tenderness Back exam: Present: normal inspection Neurological exam: Present: alert, oriented X3, CN II-XII intact Psychiatric exam: Present: normal affect, normal mood Skin exam: Present: warm, dry, intact, normal color. Absent: rash Course Vital Signs 03/11/25 03/11/25 03/12/25 20:22 22:30 01:25 Temperature 98.1 F Pulse Rate 97 92 82 Respiratory 18 18 18 Rate Blood Pressure 105/70 121/66 132/82 O2 Sat by Pulse 97 94 L 95 Oximetry 03/12/25 03/12/25 03/12/25 04:00 05:55 06:44 Temperature Pulse Rate 69 78 78 Respiratory 18 18 18 Rate Blood Pressure 164/97 150/95 150/94 O2 Sat by Pulse 95 94 L 96 Oximetry 03/12/25 03/12/25 03/12/25 07:25 10:00 11:00 Temperature 98.7 F Pulse Rate 70 68 65 Respiratory 20 16 16 Rate Blood Pressure 149/92 130/60 150/94 O2 Sat by Pulse 96 98 96 Oximetry 03/12/25 03/12/25 12:00 15:26 Temperature Pulse Rate 78 79 Respiratory 20 18 Rate Blood Pressure 157/98 143/84 O2 Sat by Pulse 98 98 Oximetry - Reevaluation(s) Reevaluation #1: 03/11/25 22:47 Medical records reviewed Reevaluation #2: 03/12/25 00:51 Patient symptoms are improved here in the ER Reevaluation #3: 03/12/25 00:51 Patient informed of results questions answered Reevaluation #4: Was pt. sent in by a medical professional or institution (, AMANDA, MECHANICAL ENERGY ENGINEER, urgent care, hospital, or [facility]...) When possible be specific @ -no Did you speak to anyone other than the patient for history (EMS, parent, family, police, friend...)? What history was obtained from this source @ -no Did you review nursing and triage notes (agree or disagree)? Why? @ -agree Are old charts reviewed (outside hosp., previous admission, EMS record, old EKG, old radiological studies, urgent care reports/EKG's, [facility] records)? Report findings @ -yes Differential Diagnosis (chest pain, altered mental status, abdominal pain women, abdominal pain men, vaginal bleeding, weakness, fever, dyspnea, syncope, headache, dizziness, GI bleed, back pain, seizure, CVA, palpatations, mental health, musculoskeletal)? @ -prior EKG interpreted by me (3pts min.). @ -yes X-rays interpreted by me (1pt min.). @ -yes negative for acute disease CT interpreted by me (1pt min.). @ -yes has positive acute PE U/S interpreted by me (1pt. min.). @ -yes negative for acute disease What testing was considered but not performed or refused? (CT, X-rays, U/S, labs)? Why? @ -none What meds were considered but not given or refused? Why? @ -none Did you discuss the management of the patient with other professionals (professionals i.e. AMANDA Hendrix, MECHANICAL ENERGY ENGINEER, lab, RT, psych nurse, social media sr strategy manager, cadmium liquor maker, teacher, radio division officer, casey saw operator)? Give summary @ -no Was smoking cessation discussed for >3mins.? @ -no Was critical care preformed (if so, how long)? @ -yes31 Were there social determinants of health that impacted care today? How? (Homelessness, low income, unemployed, alcoholism, drug addiction, transportation, low edu. Level, literacy, decrease access to med. care, nursing home, rehab)? @ -none Was there de-escalation of care discussed even if they declined (Discuss DNR or withdrawal of care, Hospice)? DNR status @ -no What co-morbidities impacted this encounter? (DM, HTN, Smoking, COPD, CAD, Cancer, CVA, ARF, Chemo, Hep., AIDS, mental health diagnosis, sleep apnea, morbid obesity)? @ -none Was patient admitted / discharged? Hospital course, mention meds given and route, prescriptions, significant lab abnormalities, going to OR and other pertinent info. @ - 65 male to ER alcohol intoxication patient has bilateral mild bilateral co njunctivitis, patient is in no acute distress ultrasound negative DVT CTA chest positive for acute bilateral PE, patient will be admitted for PE consultation and management, anticoagulation admitted Undiagnosed new problem with uncertain prognosis? @ -no Drug Therapy requiring intensive monitoring for toxicity (Heparin, Nitro, Insulin, Cardizem)? @ -no Were any procedures done? @ -no Diagnosis/symptom? @ -Acute PE Acute, or Chronic, or Acute on Chronic? @ -Acute Uncomplicated (without systemic symptoms) or Complicated (systemic symptoms)? @ -Complicated Side effects of treatment? @ -no Exacerbation, Progression, or Severe Exacerbation? @ -exacerbation Poses a threat to life or bodily function? How? (Chest pain, USA, MS, pneumonia, PE, COPD, DKA, ARF, appy, cholecystitis, CVA, Diverticulitis, Homicidal, Suicidal, threat to staff... and all critical care pts) @ -yes acute PE Reevaluation #5: Differential Chest Pain: Stable Angina, Unstable Angina, STEMI, NSTEMI Aortic Dissection, Pneumothorax, Musculoskeletal, Esophageal Spasm GERD, Cholecystitis, Pancreatitis, Zoster, this is not meant to be an all-inclusive list. Differential Weakness: Hypoglycemia, shock, sepsis, hyponatremia, anemia, infection, MS, ETOH, adverse medicine reaction, overdose, stroke, this is not meant to be an all-inclusive list. Medical Decision Making - Medical Decision Making 65 male to ER alcohol intoxication patient has bilateral mild bilateral conjunctivitis, patient is in no acute distress ultrasound negative DVT CTA chest positive for acute bilateral PE, patient will be admitted for PE consulta tion and management, anticoagulation - Lab Data Result diagrams: 03/13/25 03:56 03/13/25 03:56 Lab Results 03/11/25 03/11/25 03/11/25 Range/Units 22:18 22:18 22:18 WBC 9.07 (4.50-10.00) 10*3/uL RBC 4.37 L (4.40-5.60) 10*6/uL Hgb 14.7 (13.0-17.0) g/dL Hct 41.2 (39.6-50.0) % MCV 94.3 (80.0-97.0) fL MCH 33.6 H (27.0-32.0) pg MCHC 35.7 (32.0-37.0) g/dL Plt Count 163 (140-440) 10*3/uL MPV 9.4 L (9.5-12.2) fL Immature Gran % (Auto) 0.3 % Neutrophils % 48.6 % Lymphocytes % 37.3 % Monocytes % 10.1 % Eosinophils % 3.0 % Basophils % 0.7 % Immature Gran # 0.03 (0.00-0.04) 10*3/uL Neutrophils # 4.41 (1.80-7.70) 10*3/uL Lymphocytes # 3.38 (0.90-5.00) 10*3/uL Monocytes # 0.92 (0.20-1.00) 10*3/uL Eosinophils # 0.27 (0.04-0.35) 10*3/uL Basophils # 0.06 (0.00-0.10) 10*3/uL PT 13.0 H (10.0-12.5) sec INR 1.2 H (<1.2) APTT 25.8 (22.0-30.0) sec D-Dimer 2.03 H (<0.60) mg/L FEU Sodium 142 (137-145) mmol/L Potassium 3.3 L (3.5-5.1) mmol/L Chloride 101 (98-107) mmol/L Carbon Dioxide 25 (22-30) mmol/L Anion Gap 16 mmol/L BUN 7 L (9-20) mg/dL Creatinine 0.61 L (0.66-1.25) mg/dL Est GFR (CKD-EPI)AfAm >90 (>60 ml/min/1.73 sqM) Est GFR (CKD-EPI)NonAf >90 (>60 ml/min/1.73 sqM) Glucose 81 (74-99) mg/dL Calcium 9.3 (8.4-10.2) mg/dL Phosphorus 4.2 (2.5-4.5) mg/dL Magnesium 1.6 (1.6-2.3) mg/dL Total Bilirubin 1.6 H (0.2-1.3) mg/dL AST 101 H (17-59) U/L ALT 38 (4-49) U/L Alkaline Phosphatase 101 (38-126) U/L Troponin I (0.000-0.034) ng/mL NT-Pro-B Natriuret Pep 191 pg/mL Total Protein 6.6 (6.3-8.2) g/dL Albumin 3.6 (3.5-5.0) g/dL Serum Alcohol 148 mg/dL 03/11/25 Range/Units 22:18 WBC (4.50-10.00) 10*3/uL RBC (4.40-5.60) 10*6/uL Hgb (13.0-17.0) g/dL Hct (39.6-50.0) % MCV (80.0-97.0) fL MCH (27.0-32.0) pg MCHC (32.0-37.0) g/dL Plt Count (140-440) 10*3/uL MPV (9.5-12.2) fL Immature Gran % (Auto) % Neutrophils % % Lymphocytes % % Monocytes % % Eosinophils % % Basophils % % Immature Gran # (0.00-0.04) 10*3/uL Neutrophils # (1.80-7.70) 10*3/uL Lymphocytes # (0.90-5.00) 10*3/uL Monocytes # (0.20-1.00) 10*3/uL Eosinophils # (0.04-0.35) 10*3/uL Basophils # (0.00-0.10) 10*3/uL PT (10.0-12.5) sec INR (<1.2) APTT (22.0-30.0) sec D-Dimer (<0.60) mg/L FEU Sodium (137-145) mmol/L Potassium (3.5-5.1) mmol/L Chloride (98-107) mmol/L Carbon Dioxide (22-30) mmol/L Anion Gap mmol/L BUN (9-20) mg/dL Creatinine (0.66-1.25) mg/dL Est GFR (CKD-EPI)AfAm (>60 ml/min/1.73 sqM) Est GFR (CKD-EPI)NonAf (>60 ml/min/1.73 sqM) Glucose (74-99) mg/dL Calcium (8.4-10.2) mg/dL Phosphorus (2.5-4.5) mg/dL Magnesium (1.6-2.3) mg/dL Total Bilirubin (0.2-1.3) mg/dL AST (17-59) U/L ALT (4-49) U/L Alkaline Phosphatase (38-126) U/L Troponin I <0.012 (0.000-0.034) ng/mL NT-Pro-B Natriuret Pep pg/mL Total Protein (6.3-8.2) g/dL Albumin (3.5-5.0) g/dL Serum Alcohol mg/dL - EKG Data -: EKG Interpreted by Me (EKG is sinus 84 IA 169 QRS 110 QTc 465) - Radiology Data Radiology results: report reviewed (Ultrasound venous duplex CT chest positive for acute PE, chest x-ray negative for acute disease), image reviewed Critical Care Time Critical Care Time: Yes Total Critical Care Time: 31 Disposition Clinical Impression: Generalized weakness, Alcohol intoxication, Sinusitis, Bilateral conjunctivitis, Bilateral pulmonary embolism Disposition: ADMITTED IP TO THIS [facility] Condition: Serious Is patient prescribed a controlled substance at d/c from ED?: No Time of Disposition: 00:50
[2025-03-11 22:30] LABS: Basophils # (A) 0.06 10*3/uL (0.00-0.10); Basophils % (A) 0.7 %; Eosinophils # (A) 0.27 10*3/uL (0.04-0.35); Eosinophils % (A) 3.0 %; HCT 41.2 % (39.6-50.0); HGB 14.7 g/dL (13.0-17.0); Lymphocytes # (A) 3.38 10*3/uL (0.90-5.00); Lymphocytes % (A) 37.3 %; MCH 33.6 pg (27.0-32.0); MCHC 35.7 g/dL (32.0-37.0); MCV 94.3 fL (80.0-97.0); Monocytes # (A) 0.92 10*3/uL (0.20-1.00); Monocytes % (A) 10.1 %; Neutrophils # (A) 4.41 10*3/uL (1.80-7.70); Neutrophils % (A) 48.6 %; Platelet Count 163 10*3/uL (140-440); RBC 4.37 10*6/uL (4.40-5.60); RDW 13.1 % (11.5-14.5); WBC 9.07 10*3/uL (4.50-10.00)
[2025-03-11 22:44] LABS: INR 1.2 (<1.2); Partial Thromboplastin Time 25.8 sec (22.0-30.0); Prothrombin Time 13.0 sec (10.0-12.5)
[2025-03-11] MEDS: diphenhydrAMINE 50 MG/ML 1 ML VIAL IVP STA (23:08)
[2025-03-11] MEDS: FAMOTIDINE 20 MG/2 ML VIAL IV STA (23:08)
[2025-03-11] MEDS: methylPREDNISolone SOD SUCCI 125 MG/2 ML VIAL IV STA (23:08)
[2025-03-11 23:14] LABS: ALT 38 U/L (4-49); AST 101 U/L (17-59); African American GFR (CKD) >90 (>60 ml/min/1.73 sqM); Albumin 3.6 g/dL (3.5-5.0); Alkaline Phosphatase 101 U/L (38-126); Anion Gap 16 mmol/L; Blood Urea Nitrogen 7 mg/dL (9-20); Calcium 9.3 mg/dL (8.4-10.2); Carbon Dioxide 25 mmol/L (22-30); Chloride 101 mmol/L (98-107); Glucose 81 mg/dL (74-99); Magnesium 1.6 mg/dL (1.6-2.3); Non-African American GFR(CKD) >90 (>60 ml/min/1.73 sqM); Potassium 3.3 mmol/L (3.5-5.1); Sodium 142 mmol/L (137-145); Total Protein 6.6 g/dL (6.3-8.2)
[2025-03-11 23:22] LABS: NT-Pro-B-Type Natriuretic Pept 191 pg/mL
[2025-03-12] MEDS: POTASSIUM BICARBONATE/CIT AC 20 MEQ TABLET.EFF PO ONE ×2 (00:15)
[2025-03-12] MEDS: MAGNESIUM OXIDE 400 MG TAB PO STA (00:16)
[2025-03-12] MEDS: SODIUM CHLORIDE 0.9% 1,000 ML IV ONE (01:33)
[2025-03-12] MEDS: KETOROLAC 15 MG/ML 1 ML VIAL IVP STA (01:34)
[2025-03-12] MEDS: POLYMYXIN B-TRIMETHOPRIM SULF (10,000-1) OPHTH DROPS 10 ML BTL BOTH EYES ONE (01:34)
[2025-03-12] MEDS: SODIUM CHLORIDE 0.9% 500 ML 500 ML IV ONE (01:34)
--- NOTE | 2025-03-12 01:38 | XR ---
EXAM: XR Chest, 2 Views CLINICAL HISTORY: ITS.REASON XR Reason: Weakness TECHNIQUE: Frontal and lateral views of the chest. COMPARISON: No relevant prior studies available. FINDINGS: Lungs: Unremarkable. No consolidation. Pleural space: Unremarkable. No pneumothorax. Heart: Cardiomegaly. Mediastinum: Unremarkable. Bones/joints: Unremarkable. IMPRESSION: No acute findings in the chest. Note, patient has positive pulmonary emboli on the subsequent CTA chest exam.
--- NOTE | 2025-03-12 01:39 | CT ---
EXAM: CT Angiography Chest With Intravenous Contrast CLINICAL HISTORY: ITS.REASON CT Reason: pe TECHNIQUE: Axial computed tomographic angiography images of the chest with intravenous contrast. CTDI is 16.6 mGy and DLP is 632.4 mGy-cm. This CT exam was performed using one or more of the following dose reduction techniques: automated exposure control, adjustment of the mA and/or kV according to patient size, and/or use of iterative reconstruction technique. MIP reconstructed images were created and reviewed. COMPARISON: No relevant prior studies available. FINDINGS: Pulmonary arteries: Positive for bilateral pulmonary emboli in the segmental and subsegmental branches. Negative for right heart strain. Aorta: Atherosclerotic changes of the aorta. No thoracic aortic aneurysm. Lungs: Unremarkable. No mass. No consolidation. Pleural space: Unremarkable. No significant effusion. No pneumothorax. Heart: Cardiomegaly. No significant pericardial effusion. No evidence of RV dysfunction. Bones/joints: Degenerative changes of the spine. No acute fracture. No dislocation. Soft tissues: Unremarkable. Lymph nodes: Unremarkable. No enlarged lymph nodes. Liver: Hepatic steatosis. IMPRESSION: Positive for bilateral pulmonary emboli in the segmental and subsegmental branches. <MYCVCSECTION> Communications: 03/12/25 01:42 Call Doctor Regarding Other, called Dr. Shah on 03/12 01:42 (-04:00)
--- NOTE | 2025-03-12 02:15 | US ---
EXAM: US Duplex Bilateral Lower Extremities Veins CLINICAL HISTORY: ITS.REASON US Reason: dvt TECHNIQUE: Real-time duplex ultrasound scan of the bilateral lower extremity veins integrating B-mode two-dimensional vascular structure, Doppler spectral analysis, color flow Doppler aging and Impression. COMPARISON: No relevant prior studies available. FINDINGS: Right deep veins: Unremarkable. No DVT in the right common femoral, femoral, proximal deep femoral or popliteal veins. The veins demonstrate normal color flow, are normally compressible, with normal phasic flow and/or augmentation response. Right superficial veins: Unremarkable. No thrombus in the visualized right great saphenous vein. Left deep veins: Unremarkable. No DVT in the left common femoral, femoral, proximal deep femoral or popliteal veins. The veins demonstrate normal color flow, are normally compressible, with normal phasic flow and/or augmentation response. Left superficial veins: Unremarkable. No thrombus in the visualized left great saphenous vein. Soft tissues: No acute findings. No popliteal cyst. IMPRESSION: Normal bilateral lower extremity duplex venous ultrasound.
[2025-03-12] MEDS: HEPARIN SOD,PORK IN 0.45% NACL 25,000 UNIT in 0.45% NACL 1 250ML.BAG IV SCH (02:26)
[2025-03-12] MEDS: HEPARIN SODIUM 1,000 UN/ML (10ML VL) IV ONE (02:28)
[2025-03-12] MEDS ORDERED: ONDANSETRON 4 MG/2 ML VIAL IVP PRN (03:30)
[2025-03-12] MEDS ORDERED: ACETAMINOPHEN TAB 325 MG TAB PO PRN (03:30)
[2025-03-12] MEDS ORDERED: MAG HYDROX/AL HYDROX/SIMETH 30 ML CUP PO PRN (03:30)
[2025-03-12] MEDS ORDERED: NALOXONE 0.4 MG/ML 1 ML VIAL IV PRN (03:30)
[2025-03-12] MEDS: SODIUM CHLORIDE 0.9% 1,000 ML IV SCH (04:25)
--- NOTE | 2025-03-12 06:26 | P.CNPUL ---
History of Present Illness Consult date: 03/12/25 Requesting physician: Mihai Otto Reason for consult: pulmonary embolism History of present illness: Patient is a 65-year-old male with past medical history significant for alcohol abuse, tobacco smoker. Presented the emergency department late last night with leg swelling. He was intoxicated on arrival. D-dimer was elevated. Venous Doppler was negative for DVTs bilaterally. A follow-up chest CT angiogram showi ng bilateral segmental and subsegmental pulmonary emboli. No CT evidence of right-sided heart strain. No acute parenchymal disease. No signs of pulmonary infarction. Subsequently, patient was started on IV heparin per protocol. Baseline labs including a CBC with a WBC count of 9, hemoglobin 14.7, platelets 163. aPTT 25.8. CMP with a sodium of 142, potassium 3.3, chloride 101, serum bicarb 25, BUN 7, creatinine 0.61, glucose 81. LFTs unremarkable. Troponin less than 0.012. NT proBNP 191. Serum alcohol level 148. Patient currently being evaluated in the emergency department, room 3. He is on room air. Not in any respiratory distress. Did receive 1.5 L of normal saline fluid bolus earlier., Normal saline continues to infuse at 75 mL/h. Not requiring any vasopressors. Blood pressures remains normotensive. Heart rate is nontachycardic. Occasionally, short of breath with exertion over the last couple weeks. Associated nonproductive cough. No sputum production or hemoptysis. No more palpitations. No chest pain. No lightheadedness or syncopal events. Does endorse bilateral lower extremity swelling, chronic. Denies personal or familial history of DVT/PE. Denies history of malignancy. Denies recent airplane or long distance car travel. Denies recent hospitalizat ion or surgery. He does not currently have a primary care provider, reportedly scheduled new patient with provider out of [facility] on March 15. As far as the patient's drinking, last drink before coming in. He drinks about a pint per day. Denies history of alcohol withdrawal/delirium tremens. Denies seizures. Denies history of GI bleed. No signs of alcohol withdrawal at the moment. Review of Systems REVIEW OF SYSTEMS: CONSTITUTIONAL: Denies any recent significant weight loss or weight gain. EYES: Denies change in vision. EARS, NOSE, MOUTH, THROAT: Denies headaches, denies sore throat. CARDIOVASCULAR: See HPI RESPIRATORY: See HPI. GASTROINTESTINAL: Denies change in appetite, abdominal pain, nausea and vomiting, or diarrhea GENITOURINARY: Denies hematuria, denies infections. MUSKULOSKELETAL: Denies pain, denies swelling. INTEGUMENTARY: Denies rash, denies eczema. NEUROLOGICAL: Denies recent memory loss, no recent seizure activity. PSYCHIATRIC: Denies anxiety, denies depression. HEMATOLOGIC/LYMPHATIC: Denies anemia, denies enlarged lymph node Past Medical History Past Medical History: Asthma, GERD/Reflux, Hypertension, Osteoarthritis (OA) Additional Past Medical History / Comment(s): occ high BP-no rx, fx left shouDER, covid 09/29, hydrocele History of Any Multi-Drug Resistant Organisms: None Reported Past Surgical History: Back Surgery, Hernia Repair, Orthopedic Surgery Additional Past Surgical History / Comment(s): 05/22/16 ORIF L shoulder. Other surgical hx: BACK fusion & neck fusion, carpal tunnel-rt Past Anesthesia/Blood Transfusion Reactions: Motion Sickness Past Psychological History: No Psychological Hx Reported Smoking Status: Current every day smoker Past Alcohol Use History: Abuse, Daily, Heavy Past Drug Use History: None Reported - Past Family History Sister(s) Family Medical History: Cancer, Deep Vein Thrombosis (DVT) Medications and Allergies Home Medications Medication Instructions Recorded Confirmed Type Folic Acid 1 mg PO DAILY 30 Days #30 tablet 02/04/25 Rx Thiamine [Vitamin B-1] 100 mg PO DAILY #30 tab 02/04/25 Rx Allergies Allergy/AdvReac Type Severity Reaction Status Date / Time Iodinated Contrast Media AdvReac Nausea Verified 03/03/25 19:42 [Iodinated Contrast Media - Oral and] Physical Exam Vitals: Vital Signs Temp Pulse Resp BP Pulse Ox 03/12/25 01:25 82 18 132/82 95 03/11/25 22:30 92 18 121/66 94 L 03/11/25 20:22 98.1 F 97 18 105/70 97 Intake and Output 03/11/25 03/11/25 03/12/25 14:59 22:59 06:59 Other: Weight 104.326 kg GENERAL EXAM: Alert, 65-year-old -Canadian male, comfortable in no apparent distress. HEAD: Normocephalic and atraumatic EYES: Normal reaction of pupils, equal size. NOSE: Clear with pink turbinates. THROAT: No erythema or exudates. NECK: No masses, no JVD. CHEST: No chest wall deformity. LUNGS: Equal air entry with no crackles, wheeze, rhonchi or dullness. On room air. No conversational dyspnea or accessory muscle use.. CVS: S1 and S2 normal with no audible murmur, regular rhythm. No extra heart sounds ABDOMEN: No hepatosplenomegaly, active bowel sounds, no guarding or rigidity. SPINE: No scoliosis or deformity SKIN: No rashes CENTRAL NERVOUS SYSTEM: No focal deficits, tone is normal in all 4 extremities. EXTREMITIES: There is n bilateral lower extremity 2+ edema. No clubbing or cyanosis. Peripheral pulses are intact. Results - Laboratory Findings CBC and BMP: 03/11/25 22:18 03/11/25 22:18 PT/INR, D-dimer PT 13.0 sec (10.0-12.5) H 03/11/25 22:18 INR 1.2 (<1.2) H 03/11/25 22:18 D-Dimer 2.03 mg/L FEU (<0.60) H 03/11/25 22:18 Abnormal lab findings: Abnormal Labs 03/11/25 03/11/25 03/11/25 22:18 22:18 22:18 RBC 4.37 L MCH 33.6 H MPV 9.4 L PT 13.0 H INR 1.2 H D-Dimer 2.03 H Potassium 3.3 L BUN 7 L Creatinine 0.61 L Total Bilirubin 1.6 H AST 101 H - Diagnostic Findings CT scan - chest: image reviewed Assessment and Plan Assessment: Acute bilateral segmental and subsegmental pulmonary emboli, no CT evidence of right-sided heart strain. Hemodynamics are stable. Previously started on IV h eparin per protocol. Bilateral lower extremity edema, venous Doppler unremarkable for DVTs bilatera lly Alcohol intoxication, serum alcohol level 148 Hypokalemia, replaced Current ongoing 1 pack/day tobacco smoker Plan: Chest CT angiogram reviewed Currently on room air Hemodynamics are stable Continues on IV heparin per protocol Will likely be started on oral anticoagulation later this morning No obvious provoking factors identified Currently, patient is intoxicated, no signs of alcohol withdrawal, monitor CIWA Case to be reviewed with my supervising physician, additional recommendations forthcoming I have personally seen and examined the patient, performed the documentation and the assessment and plan as written. Number of minutes spent on the visit:20 This dictation was produced using [employer] dictation software please excuse grammatical errors Time with Patient: Greater than 30
[2025-03-12] MEDS: FAMOTIDINE 20 MG TAB PO SCH (08:14)
[2025-03-12] MEDS: THIAMINE 100 MG TAB PO SCH (08:14)
[2025-03-12] MEDS: FOLIC ACID 1 MG TAB PO SCH (08:14)
[2025-03-12] MEDS ORDERED: LORazepam 1 MG/0.5 ML VIAL IV PRN ×3 (11:38)
--- NOTE | 2025-03-12 11:39 | P.HPIM ---
History of Present Illness This is a pleasant 65 years old male with past medical history of alcohol use disorder. He presents because of bilateral leg swelling and shortness of breath. Patient is awake alert oriented x 3 but he is somewhat sleepy. His complaints from swelling both legs but also has been complaining from some chest pain about 5/10 burning on the left side not elevated by coughing Associated with some cough and yellow phlegm No abdominal pain or vomiting or diarrhea. No urinary complaint. No headache dizziness weakness He smokes 1 pack/day and he was counseled to quit he agrees and he wants the nicotine patch. He drinks 1 pint of liquor every day and he was also counseled to quit drinking and he agrees. No illicit drugs. He denies depression or suicidal ideation. He is complaining from constipation. Also states that he fell about 1 to 2 weeks ago. I told the patient about his problem of PE and his blood thinner and risk of falling and bleed., He told me he is trying to quit drinking and he verbalized understanding of the risks and willing to continue with treatment with the blood thinner Admission he is afebrile. Blood pressure stable. Labs including CBC BMP and LFT and INR troponin were unremarkable. Serum alcohol was elevated 148 Ultrasound of the leg is negative for acute DVT but CT of the chest showing pos itive for bilateral pulmonary embolism in segmental and subsegmental branches Patient currently on heparin drip on normal saline Review of Systems Review of systems CONSTITUTIONAL: No fever, no malaise, no fatigue. HEENT: No recent visual problems or hearing problems. Denied any sore throat. CARDIOVASCULAR: No orthopnea, PND, no palpitations, no syncope. PULMONARY: No Chest wall tenderness, no hemoptysis. GASTROINTESTINAL: No diarrhea, no nausea, no vomiting, no abdominal pain. Normoactive bowel sounds. NEUROLOGICAL: No headaches, no weakness, no numbness. HEMATOLOGICAL: Denies any bleeding or petechiae. GENITOURINARY: Denies any burning micturition, frequency, or urgency. MUSCULOSKELETAL/RHEUMATOLOGICAL: Denies any joint pain, swelling, or any muscle pain. ENDOCRINE: Denies any polyuria or polydipsia. Past Medical History Past Medical History: Asthma, GERD/Reflux, Hypertension, Osteoarthritis (OA) Additional Past Medical History / Comment(s): occ high BP-no rx, fx left shouDER, covid 09/29, hydrocele History of Any Multi-Drug Resistant Organisms: None Reported Past Surgical History: Back Surgery, Hernia Repair, Orthopedic Surgery Additional Past Surgical History / Comment(s): 05/22/16 ORIF L shoulder. Other surgical hx: BACK fusion & neck fusion, carpal tunnel-rt Past Anesthesia/Blood Transfusion Reactions: Motion Sickness Past Psychological History: No Psychological Hx Reported Smoking Status: Current every day smoker Past Alcohol Use History: Abuse, Daily, Heavy Past Drug Use History: None Reported - Past Family History Sister(s) Family Medical History: Cancer, Deep Vein Thrombosis (DVT) Medications and Allergies Home Medications Medication Instructions Recorded Confirmed Type No Known Home Medications 03/12/25 03/12/25 History Allergies Allergy/AdvReac Type Severity Reaction Status Date / Time Iodinated Contrast Media AdvReac Nausea Verified 03/12/25 08:27 [Iodinated Contrast Media - Oral and] Physical Exam Vitals: Vital Signs Temp Pulse Resp BP Pulse Ox 03/12/25 10:00 68 16 130/60 98 03/12/25 07:25 98.7 F 70 20 149/92 96 03/12/25 06:44 78 18 150/94 96 03/12/25 05:55 78 18 150/95 94 L 03/12/25 04:00 69 18 164/97 95 03/12/25 01:25 82 18 132/82 95 03/11/25 22:30 92 18 121/66 94 L 03/11/25 20:22 98.1 F 97 18 105/70 97 Intake and Output 03/11/25 03/12/25 03/12/25 22:59 06:59 14:59 Intake Total 121.438 Balance 121.438 Intake: Intake, IV Titration 121.438 Amount Heparin Sod,Pork in 0.45% 121.438 NaCl 25,000 unit In 0.45 % NaCl 1 250ml.bag @ 18 UNITS/KG/HR 18.779 mls/hr IV .[id number] [facility] Rx#: [id number] Other: Weight 104.326 kg GENERAL: The patient is alert and oriented x3, not in any acute distress. Well developed, well nourished. HEENT: Pupils are round and equally reacting to light. EOMI. No scleral icterus. No conjunctival pallor. Normocephalic, atraumatic. No pharyngeal erythema. No thyromegaly. CARDIOVASCULAR: S1 and S2 present. No murmurs, rubs, or gallops. PULMONARY: Chest is clear to auscultation, no wheezing , no crackles. ABDOMEN: Soft, nontender, nondistended, normoactive bowel sounds. No palpable organomegaly. MUSCULOSKELETAL: No joint swelling or deformity. EXTREMITIES: No cyanosis, clubbing, or pedal edema. NEUROLOGICAL: Gross neurological examination did not reveal any focal deficits. SKIN: No rashes. no petechiae. Results CBC & Chem 7: 03/11/25 22:18 03/11/25 22:18 Labs: Abnormal Lab Results - Last 24 Hours (Table) 03/11/25 03/11/25 03/11/25 Range/Units 22:18 22:18 22:18 RBC 4.37 L (4.40-5.60) 10*6/uL MCH 33.6 H (27.0-32.0) pg MPV 9.4 L (9.5-12.2) fL PT 13.0 H (10.0-12.5) sec INR 1.2 H (<1.2) APTT (22.0-30.0) sec D-Dimer 2.03 H (<0.60) mg/L FEU Potassium 3.3 L (3.5-5.1) mmol/L BUN 7 L (9-20) mg/dL Creatinine 0.61 L (0.66-1.25) mg/dL Total Bilirubin 1.6 H (0.2-1.3) mg/dL AST 101 H (17-59) U/L 03/12/25 Range/Units 07:23 RBC (4.40-5.60) 10*6/uL MCH (27.0-32.0) pg MPV (9.5-12.2) fL PT (10.0-12.5) sec INR (<1.2) APTT 171.5 H* (22.0-30.0) sec D-Dimer (<0.60) mg/L FEU Potassium (3.5-5.1) mmol/L BUN (9-20) mg/dL Creatinine (0.66-1.25) mg/dL Total Bilirubin (0.2-1.3) mg/dL AST (17-59) U/L Assessment and Plan Assessment: Acute bilateral pulmonary embolism Alcohol use disorder at risk of alcohol withdrawal Fall about 2 weeks prior to hospitalization Bilateral leg edema swelling with ultrasound negative for DVT History of asthma GERD History of osteoarthritis History of back surgery Plan: Heparin drip Continue with gentle hydration Continue with CIWA protocol thiamine Patient was counseled to quit drinking and smoking and he agrees Pulmonary team consult Labs and medication were reviewed.. Continue same treatment. Continue with symptomatic treatment. Resume home medication. Monitor labs and vitals. DVT and GI prophylaxis. Further recommendations as per clinical course of the patient DVT prophylaxis: heparin GI Prophylaxis: Pepcid PT/OT: Pending Prognosis is guarded
[2025-03-12] MEDS: NICOTINE 21MG/24HR PATCH TRANSDERM SCH (11:59)
[2025-03-12] MEDS: DOCUSATE 100 MG CAP PO SCH (11:59)
[2025-03-12] MEDS: HEPARIN SODIUM 1,000 UN/ML (10ML VL) IV PRN (16:24)
[2025-03-12] MEDS: MORPHINE SULFATE 4 MG/ML SYRINGE IV PRN (20:07)
[2025-03-13 05:16] LABS: Basophils # (A) 0.04 10*3/uL (0.00-0.10); Basophils % (A) 0.4 %; Eosinophils # (A) 0.01 10*3/uL (0.04-0.35); Eosinophils % (A) 0.1 %; HCT 42.3 % (39.6-50.0); HGB 14.7 g/dL (13.0-17.0); Immature Platelet Fraction 4.4 % (1.1-6.1); Lymphocytes # (A) 2.69 10*3/uL (0.90-5.00); Lymphocytes % (A) 24.7 %; MCH 33.3 pg (27.0-32.0); MCHC 34.8 g/dL (32.0-37.0); MCV 95.9 fL (80.0-97.0); Monocytes # (A) 0.90 10*3/uL (0.20-1.00); Monocytes % (A) 8.3 %; Neutrophils # (A) 7.20 10*3/uL (1.80-7.70); Neutrophils % (A) 66.1 %; Platelet Count 160 10*3/uL (140-440); RBC 4.41 10*6/uL (4.40-5.60); RDW 12.8 % (11.5-14.5); WBC 10.88 10*3/uL (4.50-10.00)
[2025-03-13 05:25] LABS: African American GFR (CKD) >90 (>60 ml/min/1.73 sqM); Anion Gap 7 mmol/L; Blood Urea Nitrogen 10 mg/dL (9-20); Calcium 9.2 mg/dL (8.4-10.2); Carbon Dioxide 29 mmol/L (22-30); Chloride 101 mmol/L (98-107); Glucose 96 mg/dL (74-99); Non-African American GFR(CKD) >90 (>60 ml/min/1.73 sqM); Potassium 3.5 mmol/L (3.5-5.1); Sodium 137 mmol/L (137-145)
[2025-03-13 10:34] VITALS: RESP 20
[2025-03-13 11:09] VITALS: BP 124/81; PULSE 62; TEMP 97.5
[2025-03-13] MEDS: Apixaban Initiation Dose--VTE 5 MG TAB PO SCH (12:31)
--- NOTE | 2025-03-13 14:50 | P.PN ---
Subjective Progress Note Date: 03/13/25 Principal diagnosis: Leg edema. Patient is a 65-year-old male with past medical history significant for alcohol abuse, tobacco smoker. Presented the emergency department late last night with leg swelling. He was intoxicated on arrival. D-dimer was elevated. Venous Doppler was negative for DVTs bilaterally. A follow-up chest CT angiogram showing bilateral segmental and subsegmental pulmonary emboli. No CT evidence of right-sided heart strain. No acute parenchymal disease. No signs of pulmonary infarction. Subsequently, patient was started on IV heparin per protocol. Baseline labs including a CBC with a WBC count of 9, hemoglobin 14.7, platelets 163. aPTT 25.8. CMP with a sodium of 142, potassium 3.3, chloride 101, serum bicarb 25, BUN 7, creatinine 0.61, glucose 81. LFTs unremarkable. Troponin less than 0.012. NT proBNP 191. Serum alcohol level 148. Patient currently being evaluated in the emergency department, room 3. He is on room air. Not in any respiratory distress. Did receive 1.5 L of normal saline fluid bolus earlier., Normal saline continues to infuse at 75 mL/h. Not requiring any vasopressors. Blood pressures remains normotensive. Heart rate is nontachycardic. Occasionally, short of breath with exertion over the last couple weeks. Associated nonproductive cough. No sputum production or hemoptysis. No more palpitations. No chest pain. No lightheadedness or syncopal events. Does endorse bilateral lower extremity swelling, chronic. Denies personal or familial history of DVT/PE. Denies history of malignancy. Denies recent airplane or long distance car travel. Denies recent hospitalization or surgery. He does not currently have a primary care provider, reportedly scheduled new patient with provider out of [facility] on March 15. As far as the patient's drinking, last drink before coming in. He drinks about a pint per day. Denies history of alcohol withdrawal/delirium tremens. Denies seizures. Denies history of GI bleed. No signs of alcohol withdrawal at the moment. Progress note dated March 13, 2025. 65-year-old black male seen today in room 376. He was seen in consultation yesterday, for pulmonary embolism. He is currently on room air. He is not having any respiratory difficulty, cough, wheezing, chest tightness, or phlegm production. He also denies any palpitations or fluttering of the chest, and denies any chest pain or chest discomfort. He is getting 0.9 at 10 cc an hour, and IV heparin. The patient will be transitioned to Eliquis. Current laboratory data includes a white count of 10.9, hemoglobin 14.7, hematocrit 42.3, and a platelet count of 160,000. PTT was 134.5, sodium 137, potassium 3.5, chlorides 101, CO2 29, BUN 10, creatinine 0.54. Glucose is 96. Calcium is 9.2. Objective - Vital Signs Vital signs: Vital Signs Temp 97.5 F L 03/13/25 11:08 Pulse 62 03/13/25 11:08 Resp 20 03/13/25 11:08 BP 124/81 03/13/25 11:08 Pulse Ox 97 03/13/25 11:08 FiO2 Intake & Output 03/12/25 03/13/25 03/13/25 18:59 06:59 18:59 Intake Total 250.000 192.495 297.505 Output Total 600 Balance 250.000 -407.505 297.505 Weight 96.4 kg Intake: Intake, IV Titration 250.000 192.495 57.505 Amount Heparin Sod,Pork in 0.45% 250.000 192.495 57.505 NaCl 25,000 unit In 0.45 % NaCl 1 250ml.bag @ 18 UNITS/KG/HR 18.779 mls/hr IV .[id number] [facility] Rx#: [id number] Oral 240 Output: Urine 600 Other: Voiding Method Toilet Urinal # Voids 1 - Exam No acute distress, oriented 3. Currently on room air. HEENT examination is grossly unremarkable. Mucous membranes are moist. No oral lesions. Neck supple. Full range of motion. No adenopathy thyromegaly or neck vein distention. Cardiovascular examination reveals regular rhythm rate. S1-S2 normal. No S3 or S4. No discernible murmur noted. Lungs reveal clear breath sounds. Breath sounds are equal bilaterally. No adventitious lung sounds including wheezes rhonchi or crackles. Abdomen soft bowel sounds are heard. No masses or tenderness. Extremities are intact. No cyanosis or clubbing. Mild lower extremity edema noted. Skin is without rash or lesion. Neurologic examination is brief but nonfocal. - Labs CBC & Chem 7: 03/13/25 03:56 03/13/25 03:56 Labs: Abnormal Lab Results - Last 24 Hours (Table) 03/12/25 03/12/25 03/13/25 Range/Units 15:05 22:05 03:56 WBC 10.88 H (4.50-10.00) 10*3/uL MCH 33.3 H (27.0-32.0) pg Eosinophils # 0.01 L (0.04-0.35) 10*3/uL APTT 36.1 H 114.4 H* (22.0-30.0) sec Creatinine (0.66-1.25) mg/dL 03/13/25 03/13/25 03/13/25 Range/Units 03:56 03:56 09:31 WBC (4.50-10.00) 10*3/uL MCH (27.0-32.0) pg Eosinophils # (0.04-0.35) 10*3/uL APTT 89.5 H 134.5 H* (22.0-30.0) sec Creatinine 0.54 L (0.66-1.25) mg/dL Assessment and Plan Assessment: Acute bilateral segmental and subsegmental pulmonary emboli. Bilateral lower extremity edema, venous Doppler negative. Alcohol intoxication, serum alcohol level 148. Hypokalemia, resolved. Current ongoing 1 pack/day tobacco smoker. Plan: Plan dated March 13, 2025. The patient is seen today in room 376. The patient is on room air. He is not having any lung issues whatsoever. He denies any shortness of breath. The patient is currently on IV heparin. That can be transition to Eliquis. He is getting saline at 10 cc an hour. From our perspective, the patient could be considered for possible discharge. Will leave that up to the primary service. He should follow-up with me after discharge in the office so we can discuss length of treatment. Additional recommendations and suggestions are forthcoming. We counseled the patient about the importance of cessation from alcohol. Also, we counseled patient about the importance of smoking cessation. Dictation was produced using [employer] software. Please excuse any grammatical, word or spelling errors. Time with Patient: Less than 30
--- NOTE | 2025-03-14 06:50 | P.DS ---
Providers Date of admission: 03/12/25 03:31 Attending physician: Wesley Marc Consults: 03/12/25 03:30 Consult Physician Routine Consulting Provider: Jesus Zapata Consult Reason/Comments: Acute bilateral pulmonary emboli Do you want consulting provider notified?: Yes Primary care physician: Jen Rodrigez Hospital Course: Diagnoses: Acute bilateral pulmonary embolism Alcohol use disorder at risk of alcohol withdrawal Fall about 2 weeks prior to hospitalization Bilateral leg edema swelling with ultrasound negative for DVT History of asthma GERD History of osteoarthritis History of back surgery Hospital course: This is a pleasant 65 years old male with past medical history of alcohol use disorder. He presents because of bilateral leg swelling and shortness of breath. Patient is awake alert oriented x 3 but he is somewhat sleepy. His complaints from swelling both legs but also has been complaining from some chest pain about 5/10 burning on the left side not elevated by coughing Ultrasound of the leg is negative for acute DVT but CT of the chest showing positive for bilateral pulmonary embolism in segmental and subsegmental branches patient was started on anticoagulation with heparin drip and tolerates that as well. Also patient evaluated by pulmonary service. Patient showed interval improvement And he Improvement of the day of discharge he is fully awake oriented and breathing quietly and comfortably denying any chest pain or dyspnea or any other new complaint. Verbalized his wishes to go home today. The bedside nurse asked the pulmonary team who cleared him for discharge per Sara PALACIOS " patient is being started on Eliquis and Dr. South said he is cleared for discharge" per her [employer] I discussed with the patient the importance of adherence to therapy of Eliquis and risk and benefits and alternatives were explained for him in details verbalized understanding acceptance. He told me he plans to quit drinking alcohol so decrease the chances of falling. Also he wants to proceed with anticoagulation to protect him from further clots which looks reasonable I checked with the pharmacy they confirm to me his co-pay for Eliquis is $0 per month Problems and management plan were discussed with the patient and he verbalized understanding and acceptance Patient was found stable and can be discharged home in guarded prognosis however he needs follow-up as an outpatient. Patient was instructed to follow up with PCP within one week and patient agrees Patient was instructed to follow-up with trust operations assistant Dr. Calles in 2 weeks and he agrees Also patient referred to adjunct faculty Dr. Guzman in 2 weeks and he agrees Physical exam Gen: patient is a AAOx3, no distress CVS: S1-S2, RRR, no murmur Lungs: B/L CTA, no wheezing Abdomen: soft, no distention, no tenderness, positive bowel sounds Extremity: no leg edema or induration Time spent more than 35 minutes Patient Condition at Discharge: Serious Plan - Discharge Summary Discharge Rx Participant: Yes New Discharge Prescriptions: New Apixaban [Eliquis Starter Pack (for VTE)] 5 - 10 mg PO DIRECTED 30 Days #1 each HYDROcodone/APAP 5-325MG [Sarver 5-325] 1 tab PO Q8H PRN #6 tab PRN Reason: Pain Discharge Medication List Apixaban [Eliquis Starter Pack (for VTE)] 5 - 10 mg PO DIRECTED 30 Days #1 each 03/13/25 [Rx] HYDROcodone/APAP 5-325MG [Sarver 5-325] 1 tab PO Q8H PRN #6 tab 03/13/25 [Rx] Follow up Appointment(s)/Referral(s): Donald Guzman [STAFF PHYSICIAN] - 2 Weeks (please call when office open to schedule appointment) Víctor South DO [Doctor of Osteopathic Medicine] - 03/26/25 1:30 pm Jen Rodrigez DO [Primary Care Provider] - 03/15/25 3:30 pm Patient Instructions/Handouts: Heart Healthy Diet (DC), Conjunctivitis (ED) Activity/Diet/Wound Care/Special Instructions: Heart healthy diet Activity is restricted till you see your doctor Your co-pay for Eliquis is $0 per month Discharge Disposition: HOME WITH HOME HEALTH SERVICES
== END 2025-03-13 15:39 | disposition home health service (06) ==
LOC: EC 20:12 → 3SCARD 03-12 03:31 → INTOOBSV 03-12 03:31 → 3SCARD 03-12 18:35 → UNDODISIN 03-13 15:39
PROVIDERS: ADMIT Hospitalist; ATTEND Hospitalist
DX: I26.94 Multiple subsegmental thrombotic pulmonary emboli without acute cor pulmonale (principal); E87.6 Hypokalemia; F10.129 Alcohol abuse with intoxication, unspecified; K21.9 Gastro-esophageal reflux disease without esophagitis; M19.90 Unspecified osteoarthritis, unspecified site; H10.9 Unspecified conjunctivitis; R60.0 Localized edema; J32.9 Chronic sinusitis, unspecified; F17.210 Nicotine dependence, cigarettes, uncomplicated; Y90.6 Blood alcohol level of 120-199 mg/100 ml; Z91.041 Radiographic dye allergy status
CPT/HCPCS: 96376 ×2; 96366 ×3; 96361; 96365; 96375 ×2; 99291; 36415; 93005; 97161; 85379; 83880; 80053; 80048; 83735; 84100; 84484; 85025 ×2; 85610; 85730 ×3; 71046; 93970; 71275; G0378 ×2; G0480; S4990 ×2; J2270 ×2; J1200; J1644 ×2; J1885; Q9967; J2919; J1308; 80320